=== PATIENT | female | born 1965 | race African-American/Black ===

== ENCOUNTER → 2017-05-01 13:07 | Outpatient (CLI) | payer MEDICARE, MEDICAID, SELFPAY ==
--- NOTE | 2017-05-01 13:10 | HPBI_ITS ---
MAMMOGRAPHY - BILATERAL SCREENING REASON FOR EXAM: Female, 51 years old. Routine annual screening examination. PERTINENT HISTORY: Non-contributory. TECHNIQUE: Digital bilateral breast shara (3D mammographic acquisition) in the CC and MLO projections. 2-D mediolateral oblique (MLO) and craniocaudad (CC) views of both breasts were obtained. CAD: Full Field Digital Mammography with Computer Added Detection was performed. COMPARISON: Comparison is made with prior study dated October 18, 2014 and October 05, 2013. FINDINGS: Breast Composition: There are scattered areas of fibroglandular density. There are no dominant masses or suspicious calcifications. Stable benign-appearing bilateral axillary lymph nodes No other significant abnormalities are identified. There has been no significant change since the prior study. HPBI/SCREENING MAMM (CAD), BILAT IMPRESSION: Stable bilateral screening mammogram. Yearly follow-up mammogram recommended. (A) ASSESSMENT CATEGORY: BIRADS Category 2: Benign. A letter regarding these results will be sent to the patient by the facility within 30 days. Approximately 10% of breast cancers are not detected by mammography. A normal mammogram should not delay biopsy of a clinically suspicious abnormality. [id number] Electronically Signed: Tom Lehman MD at 14:56 EST Tel [phone], Service support ,
== END ==
PROVIDERS: Family Provider Family Medicine; PCP Family Medicine; Visit Provider Family Medicine
DX: Z12.31 Encounter for screening mammogram for malignant neoplasm of breast (principal)
CPT/HCPCS: 77063; 77067

== ENCOUNTER → 2017-05-06 11:00 | Outpatient (CLI) | payer MEDICARE, MEDICAID, SELFPAY ==
[2017-05-11 13:56] LABS: HPV Reflexed? NOT INDICATED
== END ==
PROVIDERS: Family Provider Family Medicine; PCP Family Medicine; Visit Provider Family Medicine
DX: Z12.4 Encounter for screening for malignant neoplasm of cervix (principal); Z01.419 Encounter for gynecological examination (general) (routine) without abnormal findings
CPT/HCPCS: 88175; G0145

== ENCOUNTER → 2018-12-21 11:05 | Outpatient (CLI) | payer MEDICARE, SELFPAY ==
[2018-12-21 15:21] LABS: Absolute Lymphocyte Count 2.82 X10^3/uL (0.83-4.51); Absolute Neutrophil Count 2.7 X10^3/uL (2.0-7.7); Basophil# 0.03 X10^3/uL; Basophil% 0.5 % (0-1); Eosinophil# 0.09 X10^3/uL; Eosinophils% 1.5 % (0-5); Hemoglobin 12.4 g/dL (12.0-15.0); Lymphocyte # 2.82 X10^3/ul (4.0); Lymphocyte % 47.1 % (19-41); Mean Corp Hgb Conc 31.8 g/dL (32-36); Mean Corpuscular Volume 94.2 fL (81-99); Mean Platelet Vol. 9.6 fl (6.2-12.0); Monocyte# 0.34 X10^3/uL; Monocyte% 5.7 % (0-10); NRBC Flagged by Analyzer 0 % (0-5); Platelet Count 228 K/mm3 (150-450); RBC Distribution Width CV 14.9 % (11.6-14.6); RBC Distribution Width SD 51.7 fl (35.1-43.9); Red Blood Count 4.14 M/mm3 (4.2-5.4)
[2018-12-21 15:47] LABS: ALB/GLOB Ratio 1.1 RATIO (0.9-2.4); AST(SGOT) 21 U/L (15-37); Alanine Aminotransfer ALT/SGPT 35 U/L (13-56); Albumin, Serum 3.7 g/dL (3.2-5.0); Alkaline Phosphatase 79 U/L (45-117); Anion Gap 7 (5-15); BUN 12 mg/dL (7-18); BUN/Creat Ratio 14.2 RATIO (10-20); Calcium,Total 9.1 mg/dL (8.5-10.1); Chloride 109 mmol/L (98-107); Cholesterol 256 mg/dL (200); Creatinine, Serum 0.85 mg/dL (0.55-1.02); EST Glomerular Filtration Rate 74 mL/min (>60); Est Glom Filt Rate - Afr Amer 90 mL/min (>60); Globulin 3.3 g/dL (2.2-4.2); Glucose 98 mg/dL (74-106); High Density Lipoprotein 65 mg/dL; Potassium 3.9 mmol/L (3.5-5.1); Sodium Level 144 mmol/L (136-145); Triglycerides 110 mg/dL; Very Low Density Lipoprotein 22 mg/dL (5-40)
== END ==
PROVIDERS: Family Provider Family Medicine; PCP Family Medicine; Visit Provider Family Medicine
DX: Z00.00 Encounter for general adult medical examination without abnormal findings (principal)
CPT/HCPCS: 36415; 80053; 80061; 85025

== ENCOUNTER → 2020-02-01 07:47 | Outpatient (CLI) | payer MEDICARE, MEDICAID, SELFPAY ==
[2020-01-23 13:48] VITALS: BMI 35.2
--- NOTE | 2020-02-01 07:50 | BI_ITS ---
MAMMOGRAPHY - BILATERAL SCREENING REASON FOR EXAM: Female, 54 years old. Routine annual screening examination. PERTINENT HISTORY: Non-contributory. History of prior right breast abscess drainage. TECHNIQUE: Digital bilateral breast isabella (3D mammographic acquisition) in the CC and MLO projections. 2-D mediolateral oblique (MLO) and craniocaudad (CC) views of both breasts were obtained. CAD: Full Field Digital Mammography with Computer Added Detection was performed. COMPARISON: Comparison is made with prior study dated 05/01/2017 and 10/18/2014. FINDINGS: Breast Composition: There are scattered areas of fibroglandular density. There are no dominant masses or suspicious calcifications. Stable benign appearing bilateral axillary lymph nodes. No other significant abnormalities are identified. There has been no significant change since the prior study. BI/SCREEN MAMM (CAD) W/ISABELLA BILAT IMPRESSION: Stable bilateral screening mammogram. Yearly follow-up mammogram recommended. (A) ASSESSMENT CATEGORY: BIRADS Category 2: Benign. A letter regarding these results will be sent to the patient by the facility within 30 days. Approximately 10% of breast cancers are not detected by mammography. A normal mammogram should not delay biopsy of a clinically suspicious abnormality. [id number] Electronically Signed: Tom Lehman, at 9:39 EST , Service support ,
== END ==
PROVIDERS: PCP Family Medicine; Referring Provider Family Medicine; Visit Provider Family Medicine
DX: Z12.31 Encounter for screening mammogram for malignant neoplasm of breast (principal)
CPT/HCPCS: 77063; 77067

== ENCOUNTER → 2020-02-17 14:53 | Outpatient (CLI) | payer MEDICARE, MEDICAID, SELFPAY ==
[2020-01-23 13:48] VITALS: BMI 35.2
--- NOTE | 2020-02-17 14:55 | CT_ITS ---
STUDY: CT SCAN LOWER EXTREMITY RIGHT REASON FOR EXAM: Female, 54 years old. RT KNEE, KESHAWN PROTOCOL RADIATION DOSAGE (If Supplied By Facility): CTDIvol = ( 18.76 ) mGy, DLP = ( 1529.34 ) mGycm. Individualized dose optimization techniques were used for this CT.? TECHNIQUE: Multiple axial tomographic images of the right knee joint, hip joint and ankle joints were obtained. Sagittal and coronal reconstruction was obtained as well. COMPARISON: None. FINDINGS: Mild degree of the joint space narrowing involving the hip joint. There is evidence of an acetabular spur. Subchondral cysts are seen in the subchondral region of the right acetabulum. There is also evidence of degenerative spur formation along the lateral aspect of the femoral head. Marked degree of joint space narrowing with spur formation involving the medial femoral condyle as well as the medial tibial plateau. Degenerative spurring is also seen at the level of the patellofemoral joint. Degenerative spurring is also seen along the lateral femoral condyle and lateral tibial plateau. Imaging of the ankle joint was obtained as well. No significant abnormality is seen. CT/Extremity Lower without Contra IMPRESSION: Degenerative changes involving the medial compartment of the knee joint as well as the patellofemoral joint as described. Mild degree of degenerative changes also involving the right hip joint. Electronically Signed: Tom Lehman, at 15:29 EST , Service support ,
== END ==
PROVIDERS: PCP Family Medicine; Referring Provider Orthopaedic Surgery; Visit Provider Orthopaedic Surgery
DX: M17.11 Unilateral primary osteoarthritis, right knee (principal)
CPT/HCPCS: 73700

== ENCOUNTER 2020-02-21 05:41 | Day surgery (SDC) | payer MEDICARE, MEDICAID, SELFPAY ==
[2020-01-23 13:48] VITALS: BMI 35.2
--- NOTE | 2020-02-10 15:39 | EKG12_ITS ---
Test Reason : Blood Pressure : / mmHG Vent. Rate : 074 BPM Atrial Rate : 074 BPM P-R Int : 142 ms QRS Dur : 070 ms QT Int : 370 ms P-R-T Axes : 072 029 028 degrees QTc Int : 410 ms Normal sinus rhythm with sinus arrhythmia Normal ECG Confirmed by LEIGHTON WAYNE, JUAN CARLOS ([id number]), map editor JUVENTINO MENENDEZ ([id number]) on 02/14/2020 9:26:18 AM Referred By: JUAN Confirmed By:JUAN CARLOS MANZANARES MD
[2020-02-10 16:35] LABS: Absolute Lymphocyte Count 3.63 X10^3/uL (0.83-4.51); Absolute Neutrophil Count 2.8 X10^3/uL (2.0-7.7); Basophil# 0.03 X10^3/uL; Basophil% 0.4 % (0-1); Eosinophil# 0.16 X10^3/uL; Eosinophils% 2.3 % (0-5); Hematocrit 39.2 % (37-47); Lymphocyte # 3.63 X10^3/ul (4.0); Lymphocyte % 51.1 % (19-41); Mean Corp Hgb Conc 33.2 g/dL (32-36); Mean Corpuscular Hgb 30.7 pg (27.0-32.0); Mean Corpuscular Volume 92.5 fL (81-99); Mean Platelet Vol. 9.7 fl (6.2-12.0); Monocyte# 0.45 X10^3/uL; Monocyte% 6.3 % (0-10); NRBC Flagged by Analyzer 0 % (0-5); Neutrophil # 2.82 X10^3/uL (2.7-7.7); Neutrophil % 39.6 % (47-70); Platelet Count 281 K/mm3 (150-450); RBC Distribution Width CV 14.4 % (11.6-14.6); RBC Distribution Width SD 48.7 fl (35.1-43.9); Red Blood Count 4.24 M/mm3 (4.2-5.4); White Blood Count 7.1 K/mm3 (4.4-11.0)
[2020-02-10 16:49] LABS: Prothrombin Time (Protime)PT. 12.2 SECONDS (11.7-14.9)
[2020-02-10 16:56] LABS: Anion Gap 2 (5-15); BUN 9 mg/dL (7-18); BUN/Creat Ratio 10.1 RATIO (10-20); Calcium,Total 9.6 mg/dL (8.5-10.1); Chloride 108 mmol/L (98-107); Creatinine, Serum 0.89 mg/dL (0.55-1.02); EST Glomerular Filtration Rate 70 mL/min (>60); Est Glom Filt Rate - Afr Amer 85 mL/min (>60); Glucose 100 mg/dL (74-106); Sodium Level 140 mmol/L (136-145)
[2020-02-21] VITALS (10 sets, daily range): BP systolic 101–154; BP diastolic 50–91; PULSE 74–107; RESP 14–17; TEMP 36.3–37.1; O2SAT 98–100; BMI 34.4
--- NOTE | 2020-02-21 06:00 | HP_ITS ---
Intake Intake Visit Reasons: right knee Allergies latex Allergy (Verified 02/06/20 15:23) Itching Sulfa (Sulfonamide Antibiotics) Allergy (Verified 02/06/20 15:23) Itching [facility] Medical History (Updated 02/10/20 @ 11:01 by Kareen Wilkinson) hysterectomy (Acute) Surgical History (Updated 03/02/17 @ 10:[address] Laurie Laguerre MD) Total knee replacement status (Acute) Social History (Updated 02/10/20 @ 13:30 by Chace NICKERSON, PA) household members: children current occupational status: unemployed Smoking Status: Current some day smoker alcohol intake: current alcohol intake frequency: 0-2 drinks per day Alcohol type: wine details: Socially smokes and drinks substance use type: marijuana caffeine: Yes Type: coffee what type of physical activity do you participate in: walking, weight training frequency: 1-2 times per week duration: 15-30 minutes/day HPI right knee: Details: Parts of this documentation were recorded by a scribe, this documentation accurately reflects the service provided and the decisions made by me, KRISHAN Roche 02/10/20 1050. CHANDAN FARIA is a 54 year old F here today for right knee IOVERA treatment. Patient continues to have generalized right knee pain. She plans to undergo right TKA on 02/21/2020. Denies numbness, tingling or other associated symptoms. Patient already has her surgical consent signed, received the ensure drinks and the required soap for cleansing. Patient is also here to pepper picker her walker in office. Ortho Exam Right Knee Skin/Wound: Yes CDI, No erythema, No ecchymosis, No swelling Homans Sign: No Knee ROM: Yes ROM-Extension -20 to 0, Yes ROM-Flexion 0-140 (approx 115-120) Examination: Yes Med jt line tenderness, No Lat jt line tenderness, No Pain with flexion, No Pain with extention Patella Translation: 1 Patella Grind: No KNEE: No acute abnormalities on inspection today. No evidence of generalized swelling and no obvious effusion. Patient has no skin changes or other signs of active infection. She is neurovascularly intact throughout the extremity along with soft compartments and no calf tenderness. Left Knee Patella Translation: 1 Assessment & Plan Problems 1. Primary osteoarthritis of right knee M17.11 Plan Preoperative diagnosis : Postoperative diagnosis: Same Procedure: Cryotherapy with Iovera device to anterior femoral cutaneous nerve and 2 branches of the infrapatellar saphenous nerve III nerves in total Description of procedure: Patient was brought back to the procedure room the operative extremity was identified by both patient and physician. The PIP flexion crease was measured to the midpoint of the patella and this distance was divided in 3 resulting in 11 cm location proximal to the midpoint of the patella. This line was extended medial and lateral to the extent of the edges of the patella. This was our treatment line for the anterior femoral cutaneous nerve. A second treatment line was made 5 cm medial to the inferior pole of the patella and 5 cm distally. The leg was prepped with alcohol and Betadine. Lidocaine with epi was used along the treatment lines. Using the Iovera device treatment lines were treated with 1 minute cycles. Reproduction of paresthesias was monitored in the area of nerve distribution. Once all 3 nerves were treated across the 2 treatment lines patient was cleaned and a light dressing with 4 x 4 and Hang wrap was applied. Patient tolerated the procedure without complication. Orders Orders: Iovera Today M25.569 Plan Detail Goals Decrease pain and radiculopathy Barriers Lumbar disc herniation Coding Level of Care Code Attention Renetta Diagnoses Primary osteoarthritis of right knee M17.11 Comment CPT for Iovera treatment of right knee
[2020-02-21] MEDS: Scopolamine 1mg/72hr Patch 1 PATCH TD (06:48)
[2020-02-21] MEDS: Gabapentin 600 MG Tablet PO (06:48)
[2020-02-21] MEDS: Acetaminophen 500 MG Tablet 1000 MG PO ×2 (06:48→13:42)
[2020-02-21] MEDS: Lactated Ringers 1,000 ML 125 ML IV ×3 (06:49→10:59)
[2020-02-21 07:21] LABS: Bedside Glucose 124 mg/dL (70-110)
--- NOTE | 2020-02-21 08:03 | HP.PCM_ITS ---
History and Physical Date of Admission: 02/21/20 Intake Intake Visit Reasons: Right knee Allergies latex Allergy (Verified 01/23/20 13:52) Itching Sulfa (Sulfonamide Antibiotics) Allergy (Verified 01/23/20 13:52) Itching [facility] Medical History (Updated 03/02/17 @ 10:[address] Laurie Laguerre MD) hysterectomy (Acute) Surgical History (Updated 03/02/17 @ 10:[address] Laurie Laguerre MD) Total knee replacement status (Acute) Social History (Updated 02/01/20 @ 14:[address] Mart Hernandez DO) household members: children current occupational status: unemployed alcohol intake: current alcohol intake frequency: 0-2 drinks per day Alcohol type: wine details: Socially smokes and drinks substance use type: marijuana caffeine: Yes Type: coffee what type of physical activity do you participate in: walking, weight training frequency: 1-2 times per week duration: 15-30 minutes/day HPI Right knee: Details: Parts of this documentation were recorded by a scribe, this documentation accurately reflects the service provided and the decisions made by me, Dr. Mart Hernandez DO 02/01/20 8623. CHANDAN FARIA is a 54 year old F here today for right knee. She is here to sign surgery consent for right TKA. She states that she has had pain since 2012. She denies any recent injections. Patient gets pain medications from her PCP, and she has been decreasing the amount of percocet she is taking.She is down to 30 Percocets per month from 190. She states that she only take 1 percocet daily. NATI Patel Reports joint pain, Reports joint swelling, Denies numbness, Denies tingling Skin/Breast Reports system reviewed and no additional complaints, except as docu Neuro Yes system reviewed and no additional complaints, except as docu, No numbness, No tingling Ortho Exam General General: Yes no acute distress Neurologic: Yes alert Psychologic: Yes reasonable and appropriate Right Wrist/Hand Skin/Wound: Yes CDI, No Swelling, No Ecchymosis Right Wrist: No Snuffbox tenderness WRIST: ttp and palpable hypertrophied A1 pully with triggering noted on exam. she is nontender 1st cmc. Left Wrist/Hand Skin/Wound: No Swelling, No Ecchymosis Right Knee Skin/Wound: Yes CDI, No erythema, No ecchymosis, No swelling Knee ROM: Yes ROM-Extension -20 to 0, Yes ROM-Flexion 0-140 (115) Examination: Yes Med jt line tenderness, No Lat jt line tenderness Stability: NML: Anterior Drawer, NML: Fuentes, NML: Posterior Drawer, NML: Varus 0, NML: Varus 30, 1+: Valgus 30 (3mm medial gapping) Patella Translation: 1 Patella Grind: No Left Knee Patella Translation: 1 Supplemental Info 01/23/2020 x-ray right knee advanced knee arthrosis [id number] medial compartment bone spurs throughout Assessment & Plan Problems 1. Primary osteoarthritis of right knee M17.11 Plan Patient educated that she has OA of her right knee. Treatment options are do nothing or PT or steroid injections or gel injections or TKA. Risks, benefits and alternatives of surgery reviewed including but not limited to bleeding, infection, nerve, artery and/or tissue damage, fracture, VTE, mechanical feel of the knee, continued pain, stiffness and expected post-operative course. Patient educated on the IOVERA procedure that can be done prior to surgery and she wishes to proceed with this as long as its covered by insurance. Educated that we will need a CT of the right knee for the robotic assisted TKA. Recommended that she see Dr. Cosby prior to surgery to manage her post operative pain. We will keep her for observation after her surgery. Follow up post op or sooner if pain, swelling, numbness or associated symptoms, or concerns develop. All questions answered. Patient in agreement of plan. Plan Detail Goals Decrease pain and radiculopathy Barriers Lumbar disc herniation Coding Level of Care Code Off vis,est,level 3 Diagnoses Primary osteoarthritis of right knee M17.11 I have re-examined the patient. There are no clinical changes since date of exam Procedure Criteria Procedure Type: Elective COVID Risk Discussion: The surgeon/proceduralist and patient have discussed in detail the risk of exposure to and/or potential harm posed by the COVID-19 virus with having a surgery/procedure at this time versus the risk of delaying the surgery/procedure. It is not possible to know either the risk of delaying the surgery or procedure or chance of getting an infection with perfect accuracy, but a joint decision was made between the patient and the surgeon/proceduralist to proceed at this time with the scheduled surgery/procedure as indicated on the consent form.
[2020-02-21] MEDS: Cefazolin 2 GM in 0.9% Normal Saline 100 ML IV (08:12)
[2020-02-21] MEDS: dexAMETHasone 10 MG/ML Vial IV (08:39)
[2020-02-21] MEDS: Bupivacaine Mpf 0.5% 30 ML VIAL (09:43)
[2020-02-21] MEDS: Epinephrine (1 mg/ml) 1 MG/ML VIAL (09:43)
[2020-02-21] MEDS: Betamethasone/Betamethasone 30 MG/5 ML Vial (09:43)
[2020-02-21] MEDS: 0.9% Normal Saline (Pres. free 10 ML Vial ×2 (09:43)
--- NOTE | 2020-02-21 10:09 | RAD_ITS ---
STUDY: X-RAY - RIGHT KNEE REASON FOR EXAM: Female, 54 years old. Post op TECHNIQUE: 2 view(s) of the knee. COMPARISON: Comparison is made with prior study dated 01/23/2020. FINDINGS: Normal visualized distal femur. Normal visualized proximal tibia and fibula. Normal proximal tibiofibular articulation. The patient is status post total knee replacement. There is good alignment. Postoperative soft tissue changes. RAD/Knee 1 or 2 Views IMPRESSION: Status post total knee replacement. There is good alignment. Postoperative soft tissue changes. Electronically Signed: Tom Lehman, at 11:13 EST , Service support ,
--- NOTE | 2020-02-21 10:14 | DCINST_ITS ---
Discharge Diet: No Restrictions Discharge Activity: Use Walker Weight Bearing Status: Weight bearing as tolerated Keep extremity elevated above heart level: Operative Extremity Call your doctor if you observe: Shortness of breath, Chest pain Additional Instructions: Ice and elevate one week while not ambulating. Ambulation is encouraged. Weightbearing as tolerated. Use assistive devise for stability. Encourage FULL knee extension and flexion 1 time EVERY time you get up and down and MULTIPLE times per day. No showering 72 hours after surgery. Begin showering postop day #3. Remove the dressing prior to shower and gently wash with warm water and antibacterial soap then pat dry and place abdominal pad (or plain gauze) and PETE hose over top. This is to be done daily. Do not submerge for 3 weeks. If not showering daily after the initial 72 hours then you must clean incision and change dressing daily. Do not allow animals near the incision area. Keep clean. Follow anticoagulation recommendations as prescribed. Do not take any NSAIDs while on blood thinner. Do not take any additional narcotic pain medication other than what was prescribed on you surgery day without discussing with physician. Start physical therapy. If you are not currently scheduled for physical therapy or you are unsure of appointment time please call office [facility] to arrange. Call Dr. Hernandez with any concerns. Allergies/Adverse Reactions: Allergies latex Allergy (Verified 02/21/20 06:21) Itching Sulfa (Sulfonamide Antibiotics) Allergy (Verified 02/21/20 06:21) Itching Medications to take at Discharge Oxycodone HCl/Acetaminophen [Percocet 5/325] 1 tablet PO PRN PRN 12/12/15 multivitamin 1 tab PO DAILY 01/23/20 Calcium Carbonate [Elemental Calcium] 1,200 mg PO DAILY 02/06/20 Cholecalciferol (Vitamin D3) [Vitamin D3] 500 mcg PO DAILY 02/06/20 Cider Vinegar [Apple Cider Vinegar] 600 mg PO DAILY 02/06/20 Lorazepam [Ativan] 1 mg PO DAILY PRN PRN 02/06/20 [place]-3 Fatty Acids [Fish Oil] 1,000 mg PO DAILY 02/06/20 Acetaminophen [Tylenol Extra Strength] 1,000 mg PO Q6H PRN #100 tab 02/21/20 Apixaban [Eliquis] 2.5 mg PO BID #30 tab 02/21/20 Cephalexin [Keflex] 1,000 mg PO Q8 #4 cap 02/21/20 Ondansetron HCl [Zofran] 4 mg PO Q6H PRN PRN 5 Days #15 tab 02/21/20 Oxycodone [Oxyir] 5 mg PO Q4H PRN PRN #60 tablet 02/21/20 The following prescriptions were given: Apixaban [Eliquis] 2.5 mg PO BID #30 tab Transmission Status: Pending to [facility] Cephalexin [Keflex] 1,000 mg PO Q8 #4 cap Transmission Status: Pending to [facility] Oxycodone [Oxyir] 5 mg PO Q4H PRN PRN #60 tablet PRN Reason: Pain Score 6-10 Transmission Status: Sent to [facility] Acetaminophen [Tylenol Extra Strength] 1,000 mg PO Q6H PRN #100 tab Transmission Status: Pending to [facility] Ondansetron HCl [Zofran] 4 mg PO Q6H PRN PRN 5 Days #15 tab PRN Reason: Nausea Transmission Status: Pending to [facility] Primary Care Physician: Satinder Stevenson DO [Primary Care Provider] - Test Results: Test results from this visit will be discussed in further detail at your follow- up appointment, if applicable. Please Follow Up With: Mart Hernandez DO - 2weeks
--- NOTE | 2020-02-21 10:15 | OP.PCM_ITS ---
Report of Operation Date of Procedure: 02/21/20 Description of Surgical Findings:: Preoperative diagnosis: Right knee DJD Postoperative diagnosis: Same Procedure: Right total knee arthroplasty CT guided Robotic Assisted Implant: Sharron triathlon press fit femoral component size 3, press-fit tibial baseplate size 3, press fit asymmetric patella size 29, polyethylene X3 size 9 CS Anesthesia: Spinal with adductor canal block Tourniquet time: 13 minutes at 300 mmHg Complications: None Condition: Stable to PACU Estimated blood loss: 200 cc Indication for procedure: This is a 54-year-old female with long standing degenerative joint disease of the knee who has failed conservative treatment and wished to proceed with elective total knee arthroplasty. Risk benefits and alternatives were reviewed including; risk of bleeding, infection, nerve artery and tissue damage, continued pain, postoperative stiffness, venous thromboembolism, need for postoperative rehabilitation, mechanical feel to the knee, and expected postoperative course. The operative CT and templating was performed with component sizing Procedure: The patient was met in the preoperative holding area. The operative extremity was identified by both patient and physician and was marked. Patient was met by anesthesia. An adductor canal block was placed by anesthesia postoperatively the patient was brought back to the operating room on a wheeled cart and transferred to the operating table in the supine position. Anesthesia was started. A well-padded tourniquet was placed on the operative extremity. The patient was prepped and draped in the usual sterile fashion. A timeout was called to ensure the proper patient procedure and extremity were being contemplated. An Esmarch was used to exsanguinate the extremity. The tourniquet was inflated. A 10 blade scalpel was used to make a midline incision down through the skin and subcutaneous tissue. Skin retractors placed. Bovie was used to perform meticulous hemostasis. full-thickness flaps were elevated medial and lateral along the joint capsule. A deep blade scalpel was used to perform a medial parapatellar arthrotomy. The knee was brought to full extension. A Bovie was used to release the soft tissues off the most proximal aspect of the medial tibial plateau, a three-quarter inch curved osteotome was also used for this process. The infrapatellar fat pad was excised. The superior fat pad was excised partially anteriorolateraly and portion the anterioromedial pad was elevated from the femur. At this point our intra- articular femoral array was placed of a 45 degree angle proximal and posterior to the medial epicondyle. Our tibial array was placed greater than 1 hands breath below the incision at a 20 degree angle stab incisions were used for this case were attached and checked with the robotic software. Tourniquet was let down. At this point registration ortiz were taken throughout the knee as well as checkpoints placed in the femur and tibia once the knee was registered then tensioned the medial and lateral ligaments in extension and 90 degrees of flexion. We then used these numbers to adjust our components within parameters to balance the knee in both flexion and extension once this was done on our monitor we then proceeded with using the robotic arm to make our tibial plateau cut and anterior posterior and chamfer cuts and distal on the femur we then trialed and achieved the desired plan with a well-balanced knee. Lug holes were drilled in the femur the tibia preparation was completed with a fin punch and the patella was prepared by first using a caliper to ensure sufficient bone stock and a patellar reamer to remove the desired amount of bone locals were drilled for an asymmetric poly-. We then brought the knee through range of motion with excellent patellar tracking. We thoroughly irrigated the knee with a trial components were removed a posterior capsular injection with her standard cocktail was performed the aqua Mantis was also used to aid in hemostasis. Betadine rinse was allowed to sit and washed out components were press-fit into place. Aricept rinse was then used followed by several more rate liters of irrigation after it was allowed to sit. Joint capsule was closed with #1 Ethibond [id number]'s followed by Vicryl in the subcutaneous tissues staple in the skin arrays and checkpoints were removed prior to closure all counts were correct stab incisions were closed with a stable standard dressing in the form of Mepilex for the main incision Xeroform 4 x 4 and Tegaderm over pin site holes. Thigh-high PETE hose applied over top of dressing. Patient tolerated the procedure well and was directed to PACU in stable condition no intraoperative complications
[2020-02-21] MEDS: Ketorolac 30 MG/ML Syringe 15 MG IV (13:25)
[2020-02-21] MEDS: oxyCODONE 5 MG Tablet PO (13:38)
[2020-02-21] MEDS: Cefazolin 1 GM/50 ML BAG IV (14:00)
== END 2020-02-21 16:48 | disposition home or self-care (01) ==
LOC: SDC 05:42 → AC 05:42
PROVIDERS: Anesthesiology; PCP Family Medicine; Referring Provider Orthopaedic Surgery; Visit Provider Orthopaedic Surgery
PROC: 0SRC0JZ Replacement of Right Knee Joint with Synthetic Substitute, Open Approach (ICD-10-PCS; CPT 27447; principal; 2020-02-21 07:30)
DX: M17.11 Unilateral primary osteoarthritis, right knee (principal); Z20.828 Contact with and (suspected) exposure to other viral communicable diseases; F17.200 Nicotine dependence, unspecified, uncomplicated; F41.9 Anxiety disorder, unspecified; F32.9 Major depressive disorder, single episode, unspecified; Z79.899 Other long term (current) drug therapy
CPT/HCPCS: 01400; 27447; 64447; S2900; 36415; 73560; 80048; 82962; 83735; 85025; 85610; 85730; 86850; 86900; 86901; 87081; 87426; 93005; 97162; C1776; C9803; J7120; J0702; J2405; J3490

== ENCOUNTER 2020-05-22 05:27 | Day surgery (SDC) | payer MEDICARE, MEDICAID, SELFPAY ==
[2020-05-22 06:23] VITALS: BP 142/87; PULSE 84; RESP 18; TEMP 36.1; O2SAT 100; BMI 32.8
[2020-05-22] MEDS: Lactated Ringers 1,000 ML 100 ML IV (06:36)
[2020-05-22] MEDS: Cefazolin 2 GM in 0.9% Normal Saline 100 ML IV (07:08)
--- NOTE | 2020-05-22 07:13 | HP.PCM_ITS ---
History and Physical Date of Admission: 05/22/20 Intake Intake Visit Reasons: RIGHT KNEE Is patient in pain?: Yes Allergies latex Allergy (Verified 05/14/20 13:13) Itching Sulfa (Sulfonamide Antibiotics) Allergy (Verified 05/14/20 13:13) Itching [facility] Medical History (Updated 02/10/20 @ 11:01 by Kareen Wilkinson) hysterectomy (Acute) Surgical History (Updated 03/02/17 @ 10:[address] Laurie Laguerre MD) Total knee replacement status (Acute) Social History (Updated 05/14/20 @ 14:[address] Mart Hernandez, ) household members: children current occupational status: unemployed Smoking Status: Current some day smoker alcohol intake: current alcohol intake frequency: 0-2 drinks per day Alcohol type: wine details: Socially smokes and drinks substance use type: marijuana caffeine: Yes Type: coffee what type of physical activity do you participate in: walking, weight training frequency: 1-2 times per week duration: 15-30 minutes/day HPI RIGHT KNEE: Details: Parts of this documentation were recorded by a scribe, this documentation accurately reflects the service provided and the decisions made by me, Dr. Mart Hernandez, 05/14/20 0755. CHANDAN FARIA is a 54 year old F here today for s/p Right total knee arthroplasty CT guided Robotic Assisted dos 02/21/20. Patient states that she has increased pain when anything touches her incision. She has extreme sensitivity to her anterior knee incision. Patient has difficulty sleeping at night due to the sheets touching her knee. Patient has been doing a home exercise program. Patient has good knee range of motion and she has good strength. Patient has knee instability if she ambulates too quickly. She denies any pain medications. She denies any changes with her incision. SHe also has triggering of the right thumb which is bothersome. SHe has had a previous right trigger injection in 01/2020 which she states took away all of her pain. the pain is directly over the A1 constanza of the thumb ROS Musc Denies numbness, Denies stiffness, Denies tingling Skin/Breast Reports system reviewed and no additional complaints, except as docu Neuro Yes system reviewed and no additional complaints, except as docu, No numbness, No tingling Ortho Exam General General: Yes no acute distress Neurologic: Yes alert, Yes oriented x3 Psychologic: Yes reasonable and appropriate Right Wrist/Hand A1 constanza trigger: No Right Wrist: No TTP CMC Sensation: Radial: I, Ulnar: I, Median: I WRIST: Nontender over CMC joint. Direct tenderness over A1 constanza which is hypertrophied clicking with thumb range of motion. She has hyperextension of the left thumb and 0 degrees of extension of the right thumb she states the right thumb used to hyperextend but no longer does.There is no collateral ligament instability she has intact extensor and flexor tendon pain of MCP joint of the right thumb Right Knee Skin/Wound: Yes healed, No erythema, No swelling Homans Sign: No Knee ROM: Yes ROM-Extension -20 to 0, No ROM-Flexion 0-140 (118) KNEE: collateral ligament intact Supplemental Info 05/14/2020 x-ray right thumb mild arthritic changeCMC IP and MP joints Assessment & Plan Problems 1. Trigger thumb, right thumb M65.311 Plan Obtained X-rays of patient's right knee. Personally reviewed x-rays. There is no obvious fracture, dislocation, or lucency noted. Patient educated that she does not have signs of loosening on xray. If she is still having a lot of pain over the incision and anterior knee then she can trial the BioMed cream which will prescribe her today. She will need prophylactic ATBs for life prior to dental work. Obtained X-rays of patient's right hand. Personally reviewed x-rays. There is no obvious fracture, dislocation, or lucency noted. I suspect her she is continuing to suffer from hypertrophy of the A1 constanza she had complete relief with injection in the past and continues to have mild clicking and tenderness over hypertrophied constanza. Treatment options are right trigger thumb injection or right A1 constanza release of the thumb. She understands the procedure will not restore her hyperextension at the IP joint as she once had. And she may have some continued pain after procedure and she understands the incision can be hypersensitive for a long time she does have history of surgical incisional hypersensitivity on her kneeShe understands the procedure will not restore her hyperextension at the IP joint as she once had. 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 She is also at increased risk for keloid as she has have them in the past as well Reviewed the pre-operative plans with the patient. Risks and benefits of the procedure were fully explained, including but not limited to infection, neurovascular injury, continued pain, arthritis, stiffness, need for further surgery, re-injury, DVT, PE, general risks of anesthesia, and loss of limb or life. The patient understands all the risks and does wish to proceed with written consent for right A1 constanza release of the thumb. Follow up 1 year post op for xrays or sooner if pain, swelling, numbness or associated symptoms, or concerns develop. All questions answered. Patient in agreement of plan. Orders Orders: Knee 4 or More Views Today M25.561 Hand Min 3 Views Today M65.311 Plan Detail Goals Decrease pain and radiculopathy Barriers Lumbar disc herniation Coding Level of Care Code Off vis,est,level 3 Diagnoses Trigger thumb, right thumb M65.311 I have re-examined the patient. There are no clinical changes since date of exam Procedure Criteria Procedure Type: Elective COVID Risk Discussion: The surgeon/proceduralist and patient have discussed in detail the risk of exposure to and/or potential harm posed by the COVID-19 virus with having a surgery/procedure at this time versus the risk of delaying the surgery/procedure. It is not possible to know either the risk of delaying the surgery or procedure or chance of getting an infection with perfect accuracy, but a joint decision was made between the patient and the surgeon/proceduralist to proceed at this time with the scheduled surgery/procedure as indicated on the consent form.
[2020-05-22] MEDS: Mupirocin Ointment 22gm Tube 1 APPLIC (07:31)
[2020-05-22] MEDS: Lidocaine 1% (20 ml mdv) 20 ML Vial (07:34)
--- NOTE | 2020-05-22 07:39 | PCM.DC.ORTHO ---
Discharge Diet: No Restrictions Additional Instructions: Ice and elevate operative extremity next 72 hours. Keep dressing on clean and dry for 48 hours then may remove and allow warm soapy water to rinse over incision but do not submerge until sutures are out. Then apply bandaid over incision and change daily. encourage finger range of motion. Not lift more than 1/2 pound. Allergies/Adverse Reactions: Allergies latex Allergy (Verified 05/17/20 10:46) Itching Sulfa (Sulfonamide Antibiotics) Allergy (Verified 05/17/20 10:46) Itching Medications to take at Discharge multivitamin 1 tab PO DAILY 01/23/20 Cholecalciferol (Vitamin D3) [Vitamin D3] 500 mcg PO DAILY 02/06/20 [place]-3 Fatty Acids [Fish Oil] 1,000 mg PO DAILY 02/06/20 Acetaminophen [Tylenol Extra Strength] 1,000 mg PO Q6H PRN #100 tab 02/21/20 oxycodone-acetaminophen 10 mg-325 mg tablet 1 tab PO Q4H PRN tab 04/02/20 Oxycodone [Oxyir] 5 mg PO Q4H PRN PRN #20 tablet 05/22/20 The following prescriptions were given: Oxycodone [Oxyir] 5 mg PO Q4H PRN PRN #20 tablet PRN Reason: Pain Score 6-10 Transmission Status: Sent to [facility] Primary Care Physician: Satinder Stevenson DO [Primary Care Provider] - Test Results: Test results from this visit will be discussed in further detail at your follow-up appointment, if applicable. Please Follow Up With: Mart Hernandez DO - 2 Weeks
--- NOTE | 2020-05-22 07:41 | OP.PCM_ITS ---
Report of Operation Date of Procedure: 05/22/20 Description of Surgical Findings:: Preoperative diagnosis; right first digit trigger finger Postoperative diagnosis; same Procedure: Right thumb digit A1 constanza release Anesthesia: Local with MAC Tourniquet time; 10 minutes 250 mm Hg Complications: None Indication for procedure; This is a 54-year-old female with symptoms consistent with trigger finger. Risks benefits and alternatives were reviewed including risks of bleeding infection nerve tendon tissue damage need for further surgery and continued pain and symptoms, hypersensitivity to scar/incision and recurrence. Procedure; The patient was met in the preoperative holding area the operative extremity was identified by both patient and physician and was marked the patient was met by anesthesia and brought back to the operating room and transferred to the operating table in the supine position. Aanesthesia was started. A well-padded tourniquet was placed on the operative upper extremity. The patient was prepped and draped in the usual sterile fashion. A timeout was called to ensure the proper patient procedure and extremity were being contemplated. 0.5 percent Marcaine was injected into the incisional area. Esmarch was used tourniquet was inflated. 15 blade scalpel was used to make a l ongitudinal incision directly over the A1 constanza was carried down through the subcutaneous tissue Rossana retractors placed radial and ulnar protecting the digital nerves and a Ragnell retractor was used at the apex of the incision under direct visualization a deep blade scalpel was used to release the A1 constanza. The wound was thoroughly irrigated and closed with 4-0 nylon vertical mattress edges. Dressing was applied in the form of Xeroform 4 x 4 web roll and an Hang wrap. Patient tolerated the procedure well was brought back to the PACU in stable condition.
[2020-05-22 07:50] VITALS: BP 126/95; BP 142/87; PULSE 81; RESP 16; TEMP 36.5; O2SAT 100
[2020-05-22 07:55] VITALS: BP 120/95; BP 142/87; PULSE 89; RESP 16; O2SAT 100
[2020-05-22 08:00] VITALS: BP 124/91; BP 142/87; PULSE 81; RESP 16; O2SAT 98
[2020-05-22 08:05] VITALS: BP 132/91; BP 142/87; PULSE 81; RESP 16; TEMP 36.3; O2SAT 100
[2020-05-22] MEDS: oxyCODONE 5 MG Tablet PO (08:40)
[2020-05-22 09:07] VITALS: BP 142/87; BP 153/82; PULSE 82; RESP 16; TEMP 36.4; O2SAT 100
== END 2020-05-22 09:14 | disposition home or self-care (01) ==
LOC: SDC 05:28 → AC 05:28
PROVIDERS: PCP Family Medicine; Referring Provider Orthopaedic Surgery; Visit Provider Orthopaedic Surgery
PROC: (CPT 26055; principal; 2020-05-22 07:05)
DX: M65.311 Trigger thumb, right thumb (principal); Z20.828 Contact with and (suspected) exposure to other viral communicable diseases; F17.200 Nicotine dependence, unspecified, uncomplicated; F41.9 Anxiety disorder, unspecified; F32.9 Major depressive disorder, single episode, unspecified
CPT/HCPCS: 01810; 26055; 87426; C9803; J7120

== ENCOUNTER → 2020-10-22 10:30 | Outpatient (CLI) | payer MEDICARE, MEDICAID, SELFPAY ==
--- NOTE | 2020-10-22 10:43 | RAD_ITS ---
STUDY: X-RAY - LUMBAR SPINE REASON FOR EXAM: Female, 55 years old. Progressive low back pain. TECHNIQUE: 4 view(s) of the lumbar spine were obtained. COMPARISON: 08/24/2015. FINDINGS: Normal lumbar lordosis. There is no substantial scoliosis. There is a normal alignment of the vertebrae. Normal vertebral bodies and endplates. Diffuse facet sclerosis unchanged. Mild intervertebral disc space narrowing at L2-3, L3-4, L4-5 and L5-S1 with small osteophytes at L2-3 and L3-4. Findings are similar to what was present on the prior study. The soft tissue structures are unremarkable. RAD/L/S Spine Min 4 Views IMPRESSION: Mild diffuse lumbar spondylosis, most marked at L2-3 and L3-4. No acute abnormality. Electronically Signed: León Schwartz MD at 9:18 EDT , Service support ,
[2020-10-22 12:01] LABS: Hemoglobin A1c 5.9 % (3.8-5.6)
[2020-10-22 12:06] LABS: AST(SGOT) 23 U/L (15-37); Alanine Aminotransfer ALT/SGPT 30 U/L (13-56); Alkaline Phosphatase 100 U/L (45-117); Anion Gap 6 (5-15); BUN 25 mg/dL (7-18); BUN/Creat Ratio 29.3 RATIO (10-20); Calcium,Total 9.5 mg/dL (8.5-10.1); Chloride 107 mmol/L (98-107); Cholesterol 270 mg/dL (200); Creatinine, Serum 0.85 mg/dL (0.55-1.02); EST Glomerular Filtration Rate 73 mL/min (>60); Est Glom Filt Rate - Afr Amer 89 mL/min (>60); Globulin 4.1 g/dL (2.2-4.2); Glucose 106 mg/dL (74-106); High Density Lipoprotein 58 mg/dL; Potassium 4.2 mmol/L (3.5-5.1); Protein, Total 8.1 g/dL (6.4-8.2); Sodium Level 141 mmol/L (136-145); Triglycerides 85 mg/dL; Very Low Density Lipoprotein 17 mg/dL (5-40)
== END ==
PROVIDERS: PCP Family Medicine; Visit Provider Family Medicine
DX: Z00.00 Encounter for general adult medical examination without abnormal findings (principal); R73.01 Impaired fasting glucose; M54.5 Low back pain; G89.29 Other chronic pain; E78.5 Hyperlipidemia, unspecified
CPT/HCPCS: 36415; 72110; 80053; 80061; 83036

== ENCOUNTER → 2020-11-26 15:12 | Outpatient (CLI) | payer MEDICARE, MEDICAID, SELFPAY ==
--- NOTE | 2020-11-26 15:18 | RAD_ITS ---
STUDY: X-RAY - LUMBAR SPINE REASON FOR EXAM: Female, 55 years old. BACK PAIN TECHNIQUE: 3 view(s) of the lumbar spine were obtained. COMPARISON: Oct 22 2020 FINDINGS: Normal lumbar lordosis. Stable grade 1 anterolisthesis at L4/L5 There is multilevel endplate spondylosis of the lumbar vertebrae. There is multi-level degenerative disc disease with multi-level disc space narrowing. The soft tissue structures are unremarkable. RAD/Lumbar Spine 2 or 3 Views IMPRESSION: Degenerative changes of the spine. Electronically Signed: Reece Kern MD at 11:21 EDT Tel , Service support ,
== END ==
PROVIDERS: PCP Family Medicine; Referring Provider Anesthesiology Pain Medicine; Visit Provider Anesthesiology Pain Medicine
DX: M54.9 Dorsalgia, unspecified (principal)
CPT/HCPCS: 72100

== ENCOUNTER 2021-02-26 17:30 | Outpatient (RCR) | payer MEDICARE, MEDICAID, SELFPAY ==
--- NOTE | 2021-02-12 17:49 | HP.PTEVAL_ITS ---
Patient's Visit Information CHANDAN FARIA is a 55 year old F referred to Physical Therapy by Dr. Satinder Stevenson DO with a diagnosis of R knee pain. Date of Evaluation: 02/12/21 Physical Therapist: Gaetano Quevedo, DPT, OCS, CSCS - Visit Plan Frequency: 3x /Week Duration: 4-6 Weeks Plan: 3x/week for 4 weeks for. 1. rollout and DTR to R knee quad, patellar mobs and aggressive knee flexion ROM prone and supine. 2. Ensure gym exercises on machines to strengthen entire R LE and progress to I at [facility]. ice as needed - Subjective Had PT in [place] and was not happy with it. R TKA one year on 03/23/21. Went back to therapy because it hurt rotating it on the bike. Had not herapy after surgery except home therapy. Only had a couple outpatient visits. Spring and summer was working and doing OK but having trouble getting in and out of car. painful sometimes if on feet alot up to 7/10 after work. 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 Lifting and pulling and bending can be painful.Squatting hurts. Feels tight. Sleep is OK with pillow in between knees. Basic ADLs are getting done. Exercises on TM and machines at [facility]'s place. Feels better after workign out but not consistent. - Pain R knee pain Pain Intensity (Out of 10): 0 Pain Intensity Range: 0, 8 - Objective Walks with a stiff R knee but i and trasnfers with some R knee pain from chair but I. Steps are stiff on R knee but able reciprocally with one rail. Hip and ankle AROM WFL. R knee AROM 0-97, PROM to 100 stiff. Tender to palpation above patella R knee. SLR R with 0 ext lag. L knee 0-127 AROM. reflexes 1/3 patella and achilles. Sensation shows some numbness lateral R knee. {Patella stiff on Fortunato compared to L proximal distally. Strength R knee ext 4 and L 4+, HSC R 4 and L 4+. Hip strength flexion 4 B, abd and ext 4- B. ankle strength 4+ B in all motions. - Balance/Special Test Scores Functional Gait Assessment Score: 28 % Disability: 6.6700 Lower Extremity Functional Score: 55 - Goals Goal 1:: 0-112 AROM R knee to limit pain with steps and squatting Goal Time Frame: 4-6 Weeks Goal 2:: Ptient feel 99% better in overall knee pain at 1/10 at worst Goal Time Frame: 4-6 Weeks Goal 3:: Work without increased pain Goal Time Frame: 4-6 Weeks Goal 4:: LEFS score 65/80 Goal Time Frame: 4-6 Weeks - Rehabilitation Potential Physical Therapy Diagnosis: R knee stiffness and limited ROM casuing funcitonal pain Rehabilitation Potential: Questionable - Anticipated Interventions Patient/Client Instruction: Educate patient on: Condition, Plan of Care For the Purpose of:: To decrease pain, To increase ROM, To improve muscle performance and motor function, To increase tolerance to activity/condition/position, To improve ability of physical actions for home/community/work/leisure Therapeutic Exercise to Include: Strength training, Postural training, F lexibilty training, Passive ROM, Active ROM For the Purpose of:: To decrease pain, To increase ROM, To improve muscle performance and motor function, To increase tolerance to activity/condition/position, To improve ability of physical actions for home/community/work/leisure Manual Therapy Techniques to Include: Scar massage, Mobilization, Passive ROM, Soft tissue mobilization For the Purpose of:: To decrease pain, To increase ROM Cryotherapy (ice pack, ice massage): Yes For the Purpose of:: To decrease swelling/inflammation Thank you for the opportunity to evaluate your patient. For Medicare and Medicare HMO plans, please review the plan of care and approve it. It will need to be FAXED BACK to us at [phone] for Medicare purposes. For Medicare only, by signing this I certify the plan of care. Please let me know if there are questions or concerns regarding this plan of care. Physician Signature: Date:
--- NOTE | 2021-03-04 13:09 | HP.PTDCSUM ---
It has been my pleasure to treat CHANDAN FRAIA referred by Dr. Satinder Stevenson DO, with the diagnosis of R knee pain for a total of 3 visit(s). Discharge Date: Please see the following information for a summary of their discharge status. Subjective: Feeling good but needs gym rpoutine to continue. R knee pain Pain Intensity (Out of 10): 1 Objective/Function: continues to demonstrate improvement in range of motion with stretching and manual work. 114 deg flexion this date. Goal 1:: 0-112 AROM R knee to limit pain with steps and squatting Goal Progress: Goal Met Goal 2:: Ptient feel 99% better in overall knee pain at 1/10 at worst Goal 3:: Work without increased pain Goal Progress: 2 hours at gym. Goal 4:: LEFS score 65/80 Plan: Patient cancelled all appointments not wihing to return without reason. Will discontinue her chart at this time. If there are questions or concerns regarding this patient's physical therapy, please feel free to call me at [phone]. Thank you for the referral of this patient. Sincerely, Gaetano Quevedo, DPT, OCS, CSCS Balance/Gait/Functional tests - Balance/Special Test Scores Functional Gait Assessment Score: 28 % Disability: 6.6700 Lower Extremity Functional Score: 55
== END 2021-02-26 19:00 | disposition home or self-care (01) ==
LOC: PT 17:30
PROVIDERS: PCP Family Medicine; Referring Provider Family Medicine; Visit Provider Family Medicine
DX: M25.561 Pain in right knee (principal)
CPT/HCPCS: 97110; 97161

== ENCOUNTER → 2021-11-22 | Outpatient (CLI) | payer MEDICARE, MEDICAID, SELFPAY ==
[2021-11-22 12:13] LABS: Hemoglobin A1c 6.1 % (3.8-5.6)
[2021-11-22 12:24] LABS: AST(SGOT) 19 U/L (15-37); Alanine Aminotransfer ALT/SGPT 30 U/L (13-56); Albumin, Serum 3.6 g/dL (3.2-5.0); Alkaline Phosphatase 81 U/L (45-117); Bilirubin, Direct 0.14 mg/dL (0.00-0.30); Cholesterol 228 mg/dL (200); Globulin 3.8 g/dL (2.2-4.2); High Density Lipoprotein 56 mg/dL; Protein, Total 7.4 g/dL (6.4-8.2); Triglycerides 123 mg/dL; Very Low Density Lipoprotein 25 mg/dL (5-40)
== END | disposition home or self-care (01) ==
PROVIDERS: PCP Family Medicine; Referring Provider Family Medicine; Visit Provider Family Medicine
DX: E78.5 Hyperlipidemia, unspecified (principal); R73.03 Prediabetes; Z51.81 Encounter for therapeutic drug level monitoring
CPT/HCPCS: 36415; 80061; 80076; 83036

== ENCOUNTER → 2021-11-29 | Outpatient (CLI) | payer MEDICARE, MEDICAID, SELFPAY ==
--- NOTE | 2021-11-29 09:58 | BI_ITS ---
MAMMOGRAPHY - BILATERAL SCREENING REASON FOR EXAM: Female, 56 years old. Routine annual screening examination. PERTINENT HISTORY: Non-contributory. TECHNIQUE: Digital bilateral breast isabella (3D mammographic acquisition) in the CC and MLO projections. 2-D mediolateral oblique (MLO) and craniocaudad (CC) views of both breasts were obtained. CAD: Full Field Digital Mammography with Computer Added Detection was performed. COMPARISON: Comparison is made with prior study dated 02/01/2020 and 05/01/2017. FINDINGS: Breast Composition: There are scattered areas of fibroglandular density. There are no dominant masses or suspicious calcifications. Stable small benign-appearing bilateral axillary lymph nodes. No other significant abnormalities are identified. There has been no significant change since the prior study. BI/SCRN MAMM (CAD)W/ISAEBLLA BILAT IMPRESSION: Stable bilateral screening mammogram. Yearly follow-up mammogram recommended. (A) ASSESSMENT CATEGORY: BIRADS Category 2: Benign. A letter regarding these results will be sent to the patient by the facility within 30 days. Approximately 10% of breast cancers are not detected by mammography. A normal mammogram should not delay biopsy of a clinically suspicious abnormality. [id number] Electronically Signed: Tom Lehman MD at 11:13 EDT ,
== END | disposition home or self-care (01) ==
LOC: OPBI 09:57
PROVIDERS: PCP Family Medicine; Referring Provider Family Medicine; Visit Provider Family Medicine
DX: Z12.31 Encounter for screening mammogram for malignant neoplasm of breast (principal)
CPT/HCPCS: 77063; 77067

== ENCOUNTER → 2022-01-20 | Outpatient (CLI) | payer MEDICARE, MEDICAID, SELFPAY ==
--- NOTE | 2022-01-20 15:20 | RAD_ITS ---
STUDY: X-RAY - PELVIS AND RIGHT HIP REASON FOR EXAM: Female, 56 years old. R HIP PAIN TECHNIQUE: 3 views of the pelvis and hip. COMPARISON: 06/10/2021 FINDINGS: There is a non-specific bowel gas pattern. Normal visualized soft tissue structures. There are multiple calcified phleboliths. Normal bilateral iliac wings, sacroiliac joints and visualized sacrum. Normal bilateral superior and inferior pubic rami. Normal pubic symphysis. Normal bilateral ischial tuberosities. There are osteoarthritic changes of the femoral head with marginal osteophyte formation. There is osteoarthritic spur formation of the acetabular rim. There is mild articular joint space narrowing of the hip. RAD/HIP, UNI W/ Pelvis 2-3 Views IMPRESSION: Unchanged appearance of mild right hip arthrosis. Electronically Signed: Reagan Arthur MD at 0:46 EST ,
== END | disposition home or self-care (01) ==
LOC: RAD 15:15
PROVIDERS: PCP Family Medicine; Referring Provider Anesthesiology Pain Medicine; Visit Provider Anesthesiology Pain Medicine
DX: M25.551 Pain in right hip (principal)
CPT/HCPCS: 73502

== ENCOUNTER 2022-02-26 08:00 | Outpatient (RCR) | payer MEDICARE, MEDICAID, SELFPAY ==
--- NOTE | 2022-02-21 09:02 | HP.PTEVAL ---
Patient's Visit Information CHANDAN FARIA is a 56 year old F referred to Physical Therapy by Dr. Shiv Cosby MD with a diagnosis of BACK PAIN AND HIP PAIN. Date of Evaluation: 02/21/22 Physical Therapist: Garfield Amanda, PT, Cert MDT, OCS - Visit Plan Frequency: 2x /Week Duration: 4 Weeks Plan: PT INTERVETIONS DLS ,POSTURAL EX'S , LE FLEXABLITY ,HIP STRENGTHNEING AND MODALTIES PRN - Subjective This 56 y/o female presents to physical therapy with back pain. Patient has has lumbar pain~ 10 years and gradually worse in right groin. Patient seen pain management Dr. Parrish had epidural injection did not help. MD recommended PT . MEDS Percocet . Patient takes Ativan anxiety . Aggravating factors lifting ,bending ,walking and standing. Alleviating factors rest . Coughing/sneezing-. Bowel/bladder -. Patient seen chiropractor last year. Denies paresthesia/tingling . Patient pain affects QOL and function. Patient had x-rays showed DDD. SOCIAL: . VOCATION: [employer] activities - Pain Right Back Pain Intensity (Out of 10): 7 Pain Intensity Range: 10 - Objective POSTURE: mild forward posture. GAIT: reciprocal pattern. NEURO: denies paresthesia/tingling ,reflexes L3-4,L4-5 ,L5-S1 1/3. SYMTTRIES: align. PALAPTION: unremarkable. MMT: quads/hams 4/5 ,hip flexion 4/5 ,ankle 5/5. FLEXABLITY: hamstrings min tight. HIP IR: 25 degrees. LUMBAR ROM: flexion mod loss ,extension min loss ,side glides min loss - Special Tests L/S Slump test left side: Negative L/S Slump test right side: Negative L/S Left Straight Leg Raise: Negative L/S Right Straight Leg Raise: Negative - Balance/Special Test Scores Oswestry Low Back Score: 25 - Goals Goal 1:: I with HEP back Goal Time Frame: 4-6 Weeks Goal 2:: Patient to improve back oswestry score by 5 points to improve QOL Goal Time Frame: 4-6 Weeks Goal 3:: Patient improve lumbar ROM for function of recovery to work with patient at job Goal Time Frame: 4-6 Weeks Goal 4:: Patient increase strength hip to 4/5 to improve function Goal Time Frame: 4-6 Weeks Goal 5:: Patient to demonstrate 50 improvement with improved function with less pain Goal Time Frame: 4-6 Weeks - Rehabilitation Potential Physical Therapy Diagnosis: This patient has right low back pain with pain with positioning and movement thus benefit from skilled PT Rehabilitation Potential: Good - Anticipated Interventions Patient/Client Instruction: Educate patient on: Condition, Plan of Care For the Purpose of:: To decrease pain, To increase ROM, To improve muscle performance and motor function, To improve ability to perform ADL's, To increase tolerance to activity/condition/position, To improve ability of physical actions for home/community/work/leisure, To improve health of tissue, To decrease soft tissue restriction, To increase flexibility/ROM, To prevent re-injury Therapeutic Exercise to Include: Strength training, Body mechanics, Postural training, Flexibilty training, Dynamic Lumbar Stabilization For the Purpose of:: To decrease pain, To increase ROM, To improve muscle performance and motor function, To increase tolerance to activity/condition/position, To improve performance and independence with ADL's, To improve ability of physical actions for home/community/work/leisure, To improve health of tissue, To decrease soft tissue restriction, To increase flexibility/ROM, To prevent re-injury TENS: Yes IF ES: Yes Cryotherapy (ice pack, ice massage): Yes Thermo therapy (hot pack): Yes Ultrasound (thermal/non thermal): Yes For the Purpose of:: To decrease pain, To increase ROM, To improve nutrient delivery to tissue, To increase oxygenation perfusion, To improve health of tissue, To decrease soft tissue restriction Thank you for the opportunity to evaluate your patient. For Medicare and Medicare HMO plans, please review the plan of care and approve it. It will need to be FAXED BACK to us at [phone] for Medicare purposes. For Medicare only, by signing this I certify the plan of care. Please let me know if there are questions or concerns regarding this plan of care. Physician Signature: Date:
--- NOTE | 2022-08-19 10:06 | HP.PTDCNRP_ITS ---
CHANDAN GARG FARIA was seen in my office for initial evaluation on 02/21/22. The following Plan of Care was established for this patient: Initial Frequency: 2x /Week Initial Duration: 4 Weeks Patient/Client Instruction: Educate patient on: Condition, Plan of Care For the Purpose of:: To decrease pain, To increase ROM, To improve muscle performance and motor function, To improve ability to perform ADL's, To increase tolerance to activity/condition/position, To improve ability of physical actions for home/community/work/leisure, To improve health of tissue, To decrease soft tissue restriction, To increase flexibility/ROM, To prevent re-injury Therapeutic Exercise to Include: Strength training, Body mechanics, Postural training, Flexibilty training, Dynamic Lumbar Stabilization For the Purpose of:: To decrease pain, To increase ROM, To improve muscle performance and motor function, To increase tolerance to activity/condition/position, To improve performance and independence with ADL's, To improve ability of physical actions for home/community/work/leisure, To improve health of tissue, To decrease soft tissue restriction, To increase flexibility/ROM, To prevent re-injury TENS: Yes IF ES: Yes Cryotherapy (ice pack, ice massage): Yes Thermo therapy (hot pack): Yes Ultrasound (thermal/non thermal): Yes For the Purpose of:: To decrease pain, To increase ROM, To improve nutrient delivery to tissue, To increase oxygenation perfusion, To improve health of ti ssue, To decrease soft tissue restriction This patient was last seen in our office . Pertinent comments regarding their Physical therapy will appear below: Patient seen for PT for back and hip pain. Patient had MRI showed HNP and stenosis. At this point I will be discontinuing this patient from physical therapy. I would be happy to see this patient again in the future if found appropriate by the physician. Thank you! Garfield Amanda, PT, Cert MDT, OCS Balance/Gait/Functional tests - Balance/Special Test Scores Oswestry Low Back Score: 25
== END 2022-02-26 19:00 | disposition home or self-care (01) ==
LOC: PT 08:00
PROVIDERS: PCP Family Medicine; Referring Provider Anesthesiology Pain Medicine; Visit Provider Anesthesiology Pain Medicine
DX: M54.9 Dorsalgia, unspecified (principal); M25.559 Pain in unspecified hip
CPT/HCPCS: 97110; 97162

== ENCOUNTER → 2022-06-05 | Outpatient (CLI) | payer MEDICARE, MEDICAID, SELFPAY ==
[2022-06-05 12:35] LABS: Absolute Lymphocyte Count 2.83 X10^3/uL (0.83-4.51); Basophil# 0.04 X10^3/uL; Basophil% 0.7 % (0-1); Eosinophil# 0.24 X10^3/uL; Eosinophils% 4.4 % (0-5); Hematocrit 41.4 % (37-47); Hemoglobin 13.3 g/dL (12.0-15.0); Lymphocyte # 2.83 X10^3/ul (0.83-4.51); Lymphocyte % 52.4 % (19-41); Mean Corp Hgb Conc 32.1 g/dL (32-36); Mean Corpuscular Hgb 29.8 pg (27.0-32.0); Mean Corpuscular Volume 92.6 fL (81-99); Mean Platelet Vol. 9.6 fl (6.2-12.0); Monocyte# 0.32 X10^3/uL; Monocyte% 5.9 % (0-10); NRBC Flagged by Analyzer 0 % (0-5); Neutrophil # 1.95 X10^3/uL (2.7-7.7); Neutrophil % 36.2 % (47-70); Platelet Count 310 K/mm3 (150-450); RBC Distribution Width CV 14.1 % (11.6-14.6); RBC Distribution Width SD 47.8 fl (35.1-43.9); Red Blood Count 4.47 M/mm3 (4.2-5.4); White Blood Count 5.4 K/mm3 (4.4-11.0)
[2022-06-05 13:07] LABS: ALB/GLOB Ratio 1.1 RATIO (0.9-2.4); AST(SGOT) 24 U/L (15-37); Alanine Aminotransfer ALT/SGPT 31 U/L (13-56); Albumin, Serum 3.9 g/dL (3.2-5.0); Alkaline Phosphatase 75 U/L (45-117); Anion Gap 5 (5-15); BUN 10 mg/dL (7-18); BUN/Creat Ratio 10.3 RATIO (10-20); Calcium,Total 9.3 mg/dL (8.5-10.1); Chloride 109 mmol/L (98-107); Cholesterol 240 mg/dL (200); Creatinine, Serum 0.97 mg/dL (0.55-1.02); EST Glomerular Filtration Rate 63 mL/min (>60); Est Glom Filt Rate - Afr Amer 76 mL/min (>60); Globulin 3.6 g/dL (2.2-4.2); Glucose 119 mg/dL (74-106); Hemoglobin A1c 5.9 % (3.8-5.6); High Density Lipoprotein 56 mg/dL; Potassium 3.9 mmol/L (3.5-5.1); Protein, Total 7.5 g/dL (6.4-8.2); Sodium Level 142 mmol/L (136-145); Triglycerides 138 mg/dL; Very Low Density Lipoprotein 28 mg/dL (5-40)
[2022-06-11 14:09] LABS: Age Gdln ACOG Testing 30-65 (.)
[2022-06-11 16:08] LABS: HPV APTIMA, High Risk Negative (Negative)
[2022-06-17 12:18] LABS: HPV Reflexed? YES, CHARGE PATIENT
== END | disposition home or self-care (01) ==
LOC: BFHLAB 09:58
PROVIDERS: PCP Family Medicine; Referring Provider Family Medicine; Visit Provider Family Medicine
DX: Z00.00 Encounter for general adult medical examination without abnormal findings (principal); E78.5 Hyperlipidemia, unspecified; E66.9 Obesity, unspecified; R73.01 Impaired fasting glucose; Z12.4 Encounter for screening for malignant neoplasm of cervix
CPT/HCPCS: 36415; 80053; 80061; 83036; 85025; 87624; 88175; G0145

== ENCOUNTER → 2022-07-10 | Outpatient (CLI) | payer MEDICARE, MEDICAID, SELFPAY ==
--- NOTE | 2022-07-10 10:34 | MRI_ITS ---
INDICATION: RADICULOPATHY EXAMINATION: MRI - MR Spine Lumbar W/O Contrast TECHNIQUE: Multiplanar and multisequence MR images of the lumbar spine. IV Contrast Dosage and Agent: None. COMPARISON: None. FINDINGS: VERTEBRAE: Vertebral body heights are preserved. Normal vertebral bodies and posterior elements. VERTEBRAL ALIGNMENT: Grade 1 spondylolisthesis L4-5 without spondylolysis. CORD: Normal position and signal intensity of the conus medullaris. L1/L2: Mild disc desiccation. L2/L3: Moderate disc desiccation, mild bilateral facet arthropathy, moderate right intraforaminal disc herniation 0.56 cm in AP dimension. There is a mild bilateral facet arthropathy with moderate right and mild left neural foraminal encroachment. L3/L4: Mild disc desiccation, mild bilateral facet arthropathy, small left intraforaminal disc herniation measuring 0.3 cm AP, moderate left-sided neural foraminal encroachment. L4/L5: Moderate disc desiccation, mild pseudobulge, moderate bilateral facet arthropathy and ligamentous hypertrophy, moderate left intraforaminal disc herniation measuring 0.78 cm AP by 1.09 cm craniocaudal. Severe left and moderate right neural foraminal encroachment. L5/S1: Mild disc desiccation and disc bulging, moderate right and mild left facet arthropathy, moderate bilateral neural foraminal encroachment. SOFT TISSUES: Unremarkable. MRI/Spine Lumbar (Routine) IMPRESSION: Moderate right intraforaminal disc herniation L2-3. L3-4 small left intraforaminal disc herniation. L4-5 moderate left intraforaminal disc herniation. Grade 1 spondylolisthesis L4-5 with mild central bulge. Mild disc bulging L5-S1. Multilevel degenerative disc disease, central stenosis, facet arthropathy and neural foraminal encroachment as above. Electronically Signed: Satinder Adam MD, REMY at 19:09 EDT ,
== END | disposition home or self-care (01) ==
LOC: MRI 10:08
PROVIDERS: PCP Family Medicine; Referring Provider Anesthesiology Pain Medicine; Visit Provider Anesthesiology Pain Medicine
DX: M54.16 Radiculopathy, lumbar region (principal)
CPT/HCPCS: 72148

== ENCOUNTER → 2023-03-28 | Outpatient (CLI) | payer MEDICARE, MEDICAID, SELFPAY ==
--- NOTE | 2023-03-28 09:52 | CT_ITS ---
EXAM: CT BILATERAL LOWER EXTREMITIES WITHOUT INTRAVENOUS CONTRAST CLINICAL INDICATION: templating right SALTY TECHNIQUE: Helically acquired images were obtained of the bilateral lower extremities without intravenous contrast. 2-D reformats were performed by the technologist. This CT exam was performed using one or more of the following dose reduction techniques: automated exposure control, adjustment of the mA and/or kV according to patient size, and/or use of iterative reconstruction technique. COMPARISON: Abdomen pelvis radiographs, 03/04/2023. FINDINGS: BONES/JOINTS: Degenerative changes in the lower lumbar spine characterized by facet and endplate osteophytosis and small disc bulges and/or herniations with at least mild spinal canal stenosis and [id number] bilateral neural foraminal narrowing at L4-5 and L5-S1. Moderate to severe right and mild to moderate left hip joint arthrosis, moderate tricompartmental left knee joint arthrosis, and status post right total knee arthroplasty. There is severe superior joint space narrowing at the right hip with marked acetabular sclerosis, hypertrophy, and subcortical cystic changes. No acute fracture. No subluxation. Normal alignment. No lytic or blastic osseous lesions are identified. SOFT TISSUES: No significant abnormality. No soft tissue swelling or gas. No radiopaque foreign body. OTHER FINDINGS: Colonic diverticulosis without visualized evidence of acute diverticulitis. CT/Extremity Lower without Contra IMPRESSION: 1. Examination used for operative planning. 2. Colonic diverticulosis without visualized evidence of acute diverticulitis. 3. Moderate to severe right and mild to moderate left hip joint arthrosis, moderate tricompartmental left knee joint arthrosis, and status post right total knee arthroplasty. Electronically Signed: Freddie Guadarrama DO at 16:59 EST ,
--- OUTSIDE RECORDS SUMMARY | 2023-03-28 09:52 | XMS RPT_ITS | CCD ---
Author Name Unknown Address [address] [place] [address] Organization [facility] Care Team Providers Care Concierge Manager Name Role Phone Daphne Will PA-C Unavailable Lynda Patel DC Unavailable Update Needed Unavailable Unavailable Dafne Sepulveda Unavailable Unavailable Violeta Gonzalez MD Unavailable Unavailable DR CANDELARIO STEVENSON DO A Primary Care Physician [facility] PT, [place] Unavailable Unavailable ABRIL BLACKWELL MD Attending Unavailable DR CANDELARIO STEVENSON DO Primary Care Unavailab ABRIL Barron MD Attending Unavailable DR CANDELARIO STEVENSON DO Primary Care Unavailab jef Allergies Allergy Classification Reported Allergen(s) Allergy Type Date of Onset Reaction(s) Facility (5 sources) etodolac Drug Allergy 08-03-19 16 Abdominal Pain [facility] Work Phone: (5 sources) meloxicam Drug Allergy 03-26-19 16 Nausea [facility] Work Phone: (5 sources) sulfacetamide Drug Allergy 09-23-19 12 [facility]: (5 sources) venlafaxine Drug Allergy 08-03-19 16 Paresthesia, Abd Pain [facility] Work Phone: (5 sources) LATEX EXAM GLOVES drug allergy 09-23-19 12 [facility] Work Phone: (2 sources) Latex Allergy to substance itching [facility] (2 sources) Sulfamethoxazole; Translations: [sulfamethoxazole ] Drug Allergy [facility] Medications Current Medications Medication Drug Class(es) Dates Sig (Normalized) Sig (Original) acetaminophen 325 mg / oxyCODONE hydrochloride 5 mg oral tablet (20 sources) Opioid Agonist Start: 07-01-2014 take 1 tablet by mouth every four hours as needed for pain Percocet 325/5 oral tablet Dose = 1 tab(s), Oral, q4h, PRN for pain, 0 Refill(s) Start Date: 07/01/14 Status: Ordered Completed/Discontinued Medications Medication Drug Class(es) Dates Sig (Normalized) Sig (Original) acetaminophen 325 mg / HYDROcodone bitartrate 5 mg oral tablet (2 sources) Opioid Agonist Start: 10-19-2021 End: 10-22-2021 take 1 tablet by mouth every six hours as needed for pain Rawlings 325- 5 mg oral tablet Dose = 1 tab(s), Oral, q6h, PRN as needed for pain, # 10 tab(s), 0 Refill(s), Acute left otitis media, 87.7 Start Date: 10/19/21 Stop Date: 10/22/21 Status: Ordered amoxicillin 875 mg / clavulanate 125 mg oral tablet (2 sources) Penicillin-class Antibacterial Start: 10-19-2021 End: 10-26-2021 take 1 tablet by mouth every twelve hours amoxicillin-clavulan ate 875 mg-125 mg oral tablet 1 tab(s), Oral, q12h, # 14 tab(s), 0 Refill(s), Acute left otitis media, 87.7 Start Date: 10/19/21 Stop Date: 10/26/21 Status: Ordered cyclobenzaprine hydrochloride 10 mg oral tablet (10 sources) Muscle Relaxant Start: 09-23-2011 End: 09-20-2014 take 1 tablet by mouth twice daily CYCLOBENZAPRINE HCL 10 MG TABS One tablet by mouth twice daily CYCLOBENZAPRINE HCL [id number] Dafne Herrera etodolac 400 mg oral tablet (10 sources) Nonsteroidal Anti-inflammatory Drug Start: 05-25-2015 End: 08-03-2015 take 1 tablet by mouth once daily for arthritis ETODOLAC 400 MG TABS One tablet by mouth daily for arthritis ETODOLAC [id number] Candelario Stevenson DO ibuprofen 200 mg oral tablet (10 sources) Nonsteroidal Anti-inflammatory Drug Start: 09-20-2014 End: 09-20-2014 MOTRIN IB 200 MG TABS Two tablets by mouth every 2-4 hours as needed for pain. IBUPROFEN [id number] Candelario Stevenson DO meloxicam 7.5 mg oral tablet (20 sources) Nonsteroidal Anti-inflammatory Drug Start: 12-25-2014 End: 03-26-2015 take 1 tablet by mouth once daily MELOXICAM 7.5 MG TABS One tablet by mouth daily MELOXICAM [id number] Candelario Stevenson DO Problems Active Problems Problem Classification Problem Date Documented Date Episodic/Chronic Anxiety disorders (5 sources) Anxiety disorder; Translations: [Anxiety disorder, unspecified] Onset: 09-20-2014 09-20-2014 Chronic Disorders of lipid metabolism (5 sources) Dyslipidemia; Translations: [Hyperlipidemia, unspecified] Onset: 09-20-2014 09-20-2014 Chronic E Codes: Natural/environment (1 source) Bite of nonvenomous arthropod; Translations: [Bitten or stung by nonvenomous insect and other nonvenomous arthropods, initial encounter] Onset: 05-04-2022 Episodic Joint disorders and dislocations; trauma-related (5 sources) Chondromalacia of patella; Translations: [Chondromalacia patellae, right knee] 09-23-2011 Chronic Mood disorders (5 sources) Depressive disorder; Translations: [Major depressive disorder, single episode, unspecified] Onset: 06-28-2015 06-28-2015 Chronic Osteoarthritis (18 sources) Osteoarthritis of knee; Translations: [Bilateral osteoarthritis of knees] Onset: 10-17-2014 Resolved: 12-25-2014 10-19-2014 Chronic Other nervous system disorders (5 sources) Ulnar neuropathy; Translations: [Lesion of ulnar nerve, unspecified upper limb] Onset: 01-01-2016 01-01-2016 Chronic Other non-traumatic joint disorders (5 sources) Loose body in elbow joint; Translations: [Loose body in unspecified elbow] Onset: 11-15-2015 11-15-2015 Chronic Other nutritional; endocrine; and metabolic disorders (20 sources) Morbid obesity; Translations: [Body mass index 30+ - obesity] Onset: 09-20-2014 Resolved: 08-03-2015 09-20-2014 Chronic Other nutritional; endocrine; and metabolic disorders (1 source) H/O: diabetes mellitus; Translations: [Personal history of other endocrine, metabolic, and immunity disorders] Episodic Otitis media and related conditions (1 source) Otitis media; Translations: [Otitis media, unspecified, left ear] Onset: 10-19-2021 Episodic Spondylosis; intervertebral disc disorders; other back problems (5 sources) Lumbar disc prolapse with radiculopathy; Translations: [Intervertebral disc disorders with radiculopathy, lumbar region] Onset: 11-26-2016 11-27-2016 Chronic Substance-related disorders (5 sources) Substance abuse; Translations: [Other psychoactive substance abuse, uncomplicated] Onset: 05-25-2015 05-25-2015 Chronic Unclassified (5 sources) Long-term drug therapy; Translations: [Other residential (current) drug therapy] Onset: 05-25-2015 05-25-2015 Unclassified (5 sources) Postoperative physical examination; Translations: [Encounter for other specified surgical aftercare] Onset: 01-01-2016 01-01-2016 Unclassified (2 sources) Screening for malignant neoplasm of colon ; Translations: [Encounter for screening for malignant neoplasm of colon] Onset: 02-04-2017 02-04-2017 Past or Other Problems Problem Classification Problem Date Documented Da te Episodic/Chronic Diabetes mellitus without complication (5 sources) Impaired glucose tolerance; Translations: [Other abnormal glucose] Onset: 11-23-2014 11-23-2014 Episodic Joint disorders and dislocations; trauma-related (15 sources) Tear of lateral meniscus of knee; Translations: [Tear of medial meniscus of knee] Resolved: 09-20-2014 11-10-2011 Episodic Other bone disease and musculoskeletal deformities (15 sources) Pelvic somatic dysfunction; Translations: [Segmental and somatic dysfunction] Onset: 11-26-2016 11-27-2016 Episodic Other circulatory disease (10 sources) Elevated blood-pressure reading without diagnosis of hypertension; Translations: [Elevated blood-pressure reading, without diagnosis of hypertension] Onset: 09-20-2014 Resolved: 11-23-2014 09-20-2014 Episodic Other connective tissue disease (5 sources) Synovitis; Translations: [Synovitis and tenosynovitis, unspecified] Onset: 01-01-2016 01-01-2016 Episodic Other injuries and conditions due to external causes (5 sources) Other injury of unspecified body region; Translations: [Other injury of unspecified body region] Onset: 03-20-2016 03-20-2016 Episodic Other non-traumatic joint disorders (20 sources) Knee pain; Translations: [Pain in elbow] Onset: 10-17-2014 Resolved: 12-25-2014 12-25-2014 Episodic Spondylosis; intervertebral disc disorders; other back problems (5 sources) Lumbar radiculopathy; Translations: [Radiculopathy, lumbar region] Onset: 08-23-2015 08-23-2015 Episodic Unclassified (5 sources) Screening for malignant neoplasm of breast ; Translations: [Other specified health status] Onset: 09-20-2014 Resolved: 09-27-2014 09-20-2014 NEGATED: Highlighted row has not occurred!Residual codes; unclassified (1 source) Disease Episodic Results Test Name Value Interpretation Reference Range Facil ity Vital Signs Date Time Vital Sign Value Performing Clinician Facility 05-04-2022 17:47-0500 Body temperature 98.78 [degF] ABRIL BLACKWELL MD [facility] 05-04-2022 17:47-0500 Diastolic Blood Pressure Non-Invasive 109 1 ABRIL BLACKWELL MD [facility] 05-04-2022 17:47-0500 Heart rate 84 /min ABRIL BLACKWELL MD [facility] 05-04-2022 17:47-0500 Respiratory rate 14 /min ABRLI BLACKWELL MD [facility] 05-04-2022 17:47-0500 Systolic Blood Pressure Non-Invasive 158 1 ABRIL BLACKWELL MD [facility] 10-19-2021 18:23-0400 Body temperature 99.68 [degF] ABRIL BLACKWELL MD [facility] 10-19-2021 18:23-0400 Diastolic blood pressure 86 mm[Hg] ABRIL BLACKWELL MD [facility] 10-19-2021 18:23-0400 Heart rate 102 /min ABRIL BLACKWELL MD [facility] 10-19-2021 18:23-0400 Respiratory rate 18 /min ABRIL BLACKWELL MD [facility] 10-19-2021 18:23-0400 Systolic blood pressure 178 mm[Hg] ABRIL BLACKWELL MD [facility] 11-26-2016 10:25-0400 BMI (Body Mass Index) 35.42 kg/m2 Lynda Dossi DC [facility] Work Phone: 11-26-2016 10:25-0400 Pulse (Heart Rate) 81 /min Lynda Dossi DC [facility] Work Phone: 11-26-2016 10:25-0400 Respiratory Rate 19 /min Lynda Dossi DC [facility] Work Phone: 11-26-2016 10:25-0400 Weight 90.72 kg Lynda Dossi DC [facility] Work Phone: 08-23-2015 16:34-0400 Body Temperature 98.2 [degF] Lynda Dossi DC [facility] Work Phone: 08-23-2015 16:34-0400 BP Diastolic 70 mm[Hg] Lynda Dossi DC [facility] Work Phone: 08-23-2015 16:34-0400 BP Systolic 104 mm[Hg] Lynda Dossi DC [facility] Work Phone: 08-23-2015 16:34-0400 BSA (Body Surface Area) 1.89 m2 Lynda Dossi DC [facility] Work Phone: 09-20-2014 11:31-0314 Height 160.02 cm Lynda Garciasi DC [facility] Work Phone: Encounters Encounter Date Encounter Type Care Provider Facility Start: 05-04-2022 End: 05-04-2022 Emergency department patient visit ABRIL BLACKWELL MD Facility:B Start: 05-04-2022 End: 05-04-2022 Emergency department patient visit ABRIL BLACKWELL MD [facility] Start: 10-19-2021 End: 10-19-2021 Emergency department patient visit ABRIL BLACKWELL MD Facility:[facility] Start: 10-19-2021 End: 10-19-2021 Emergency department patient visit ABRIL BLACKWELL MD [facility] Procedures Date Procedure Procedure Detail Performing Clinician Start: 01-26-2017 End: 01-26-2017 Chiropractic manipulative tx spinal 3-4 regions Lynda B Dossi DC Work Phone: Start: 01-12-2017 End: 01-12-2017 Chiropractic manipulative tx spinal 3-4 regions Lynda B Dossi DC Work Phone: Start: 01-01-2017 End: 01-01-2017 Chiropractic manipulative tx spinal 3-4 regions Lynda B Dossi DC Work Phone: Start: 12-25-2016 End: 12-25-2016 Chiropractic manipulative tx spinal 3-4 regions Lynda B Dossi DC Work Phone: Start: 12-23-2016 End: 12-23-2016 Chiropractic manipulative tx spinal 3-4 regions Lynda B Dossi DC Work Phone: Start: 12-18-2016 End: 12-18-2016 Chiropractic manipulative tx spinal 3-4 regions Lynda B Dossi DC Work Phone: Start: 12-10-2016 End: 12-15-2016 Chiropractic manipulative tx spinal 3-4 regions Lynda B Dossi DC Work Phone: Start: 12-09-2016 End: 12-09-2016 Chiropractic manipulative tx spinal 3-4 regions Lynda B Dossi DC Work Phone: Start: 12-08-2016 End: 12-08-2016 Chiropractic manipulative tx spinal 3-4 regions Lynda B Dossi DC Work Phone: Start: 12-04-2016 End: 12-04-2016 Chiropractic manipulative tx spinal 3-4 regions Lynda B Dossi DC Work Phone: Start: 12-03-2016 End: 12-04-2016 Chiropractic manipulative tx spinal 3-4 regions Lynda B Dossi DC Work Phone: Start: 12-01-2016 End: 12-01-2016 Chiropractic manipulative tx spinal 3-4 regions Lynda B Dossi DC Work Phone: Start: 05-27-2015 End: 05-30-2015 other Candelario Stevenson DO Work Phone: Start: 05-25-2015 End: 05-27-2015 *VUDS Urine Drug Screen Candelario Stevenson DO Work Phone: Start: 11-23-2014 End: 02-20-2015 Hemoglobin glycosylated a1c Candelario Stevenson DO Work Phone: Start: 10-18-2014 End: 02-20-2015 Rheumatology Referral Candelario Stevenson DO Work Phone: Start: 09-20-2014 End: 02-20-2015 Mammogram, screening Candelario Stevenson DO Work Phone: Arthroscopy of knee ABRIL SILVA MD Plan of Treatment Date Care Activity Detail Author Start: 03-02-2017 End: 03-02-2017 Appointment Appointment [facility] Work Phone: Start: 02-10-2017 End: 02-10-2017 Appointment Appointment [facility] Work Phone: Start: 02-04-2017 End: 02-04-2017 Colonoscopy flx dx w/collj spec when pfrmd Colonoscopy [facility] Work Phone: Start: 01-26-2017 End: 01-26-2017 Follow up Appt 2x/Month Follow up Appt 2x/Month [facility] Work Phone: Start: 01-26-2017 End: 01-26-2017 Appointment Appointment [facility] Work Phone: Start: 01-12-2017 End: 01-12-2017 Follow up Appt 2x/Month Follow up Appt 2x/Month [facility] Work Phone: Start: 01-12-2017 End: 01-12-2017 Appointment Appointment [facility] Work Phone: Start: 01-01-2017 End: 01-01-2017 Follow up Appt 1x/week Follow up Appt 1x/week [facility] Work Phone: Start: 12-25-2016 End: 12-25-2016 Follow up Appt 1x/week Follow up Appt 1x/week [facility] Work Phone: Start: 12-23-2016 End: 12-23-2016 Follow up Appt 2x/week Follow up Appt 2x/week [facility] Work Phone: Start: 12-18-2016 End: 12-18-2016 Follow up Appt 2x/week Follow up Appt 2x/week [facility] Work Phone: Start: 12-10-2016 End: 12-15-2016 Follow up Appt 2x/week Follow up Appt 2x/week [facility] Work Phone: Start: 12-09-2016 End: 12-09-2016 Follow up Appt 3x/week Follow up Appt 3x/week [facility] Work Phone: Start: 12-08-2016 End: 12-08-2016 Follow up Appt 3x/week Follow up Appt 3x/week [facility] Work Phone: Start: 12-04-2016 End: 12-04-2016 Follow up Appt 3x/week Follow up Appt 3x/week [facility] Work Phone: Start: 12-03-2016 End: 12-04-2016 Follow up Appt 3x/week Follow up Appt 3x/week [facility] Work Phone: Start: 12-01-2016 End: 12-01-2016 Follow up Appt 3x/week Follow up Appt 3x/week [facility] Work Phone: Start: 11-26-2016 End: 11-27-2016 Follow up Appt 3x/week Follow up Appt 3x/week [facility] Work Phone: Start: 07-23-2016 End: 07-23-2016 Physical Therapy General [facility], [address] [place] [address], [id number] [facility] Work Phone: Start: 03-20-2016 End: 03-20-2016 Radex elbow complete minimum 3 views X-Ray, Elbow [facility] Work Phone: Start: 01-02-2016 End: 01-02-2016 Occupational Therapy General Occupational Therapy [facility], [address] [place] [address], [id number] [facility] Work Phone: Start: 11-15-2015 End: 11-15-2015 Mri any jt upper extremity w/o contrast matrl MRI Joint Upper Extremity [facility] Work Phone: Start: 11-15-2015 End: 11-15-2015 Radex elbow complete minimum 3 views X-Ray, Elbow [facility] Work Phone: Start: 08-27-2015 End: 07-23-2016 Physical Therapy General [facility], [address] [place], [address] [facility] Work Phone: Start: 08-23-2015 End: 08-23-2015 Radex spine lumbosacral minimum 4 views X-Ray, Spine, Lumbosacral 2-3 views [facility] Work Phone: Start: 08-23-2015 End: 08-23-2015 X-ray exam of hip X-Ray, Hip Unilateral [facility] Work Phone: Start: 05-27-2015 End: 05-30-2015 Other Other [facility] Work Phone: Start: 05-25-2015 End: 05-27-2015 *VUDS Urine Drug Screen *VUDS Urine Drug Screen [facility] Work Phone: Start: 11-23-2014 End: 02-20-2015 Hemoglobin A1c/Hemoglobin.total mass fraction (Bld) HGB A1C (Office) [facility] Work Phone: Start: 11-23-2014 End: 11-23-2014 Radiologic exam knee complete 4/more views X-Ray, Knee [facility] Work Phone: Start: 10-18-2014 End: 02-20-2015 Rheumatology Referral Rheumatology Referral Chasidy Rodriguez MD, [facility], [address], [place], [address] [facility] Work Phone: Start: 10-17-2014 End: 10-17-2014 Radiologic exam knee complete 4/more views X-Ray, Knee [facility] Work Phone: Start: 09-20-2014 End: 02-20-2015 Mammogram, screening Mammogram, Screening, both breasts [facility] Work Phone: Payers Date Payer Category Payer Private Health Insurance [id number] 1965 Unknown [id number] 1965 Unknown [id number] Social History Date Type Detail Facility Start: 04-22-2018 Tobacco smoking status Light tobacco smoker (finding) [facility] Sex Assigned At Sex [facility] NEGATED: Highlighted row - - [facility] Work Phone: Functional Status Date Assessment Result Facility 05-04-2022 Functional Status ID band on, Call device within reach, Bed in low position, Wheels locked, Safety level maintained [facility] 10-19-2021 Functional Status ID band on, Call device within reach, Bed in low position, Wheels locked [facility] NEGATED: Highlighted row Functional performance Functional status health issues are not documented [facility] Work Phone: Mental Status Date Assessment Result Facility 05-04-2022 Mental Status Oriented x 4 [facility] 10-19-2021 Mental Status Oriented x 4 [facility] NEGATED: Highlighted row Cognitive function [Interpretation] Cognitive status health issues are not documented [facility] Work Phone: Hospital Discharge instructions 05-04-2022 Note Date & Type Note Facility 05-04-2022 Hospital Discharg e instructions Patient Education 05/04/2022 18:12:10 Insect Bites and Stings Insect, Spider, and Scorpion Bites and Stings The black (top) and brown recluse (bottom) are two poisonous spiders found in the [facility]. Most insect bites are harmless and cause only minor swelling or itching. But if you re allergic to insects such as wasps or bees, a sting can cause a life-threatening allergic reaction. Some ticks can carry and transmit serious diseases. The venom (poison) from scorpions and certain spiders can also be deadly, although this is rare. Knowing when to seek emergency care could save your life. When to go to the emergency room (ER) Scorpion sting Bite from a black, red, or brown spider or brown recluse spider Severe pain or swelling at the site of bite A tick that is embedded in your skin and can not be easily removed at home Signs of an allergic reaction such as: oHives oSwelling of your eyes, lips, or the inside of your throat oTrouble breathing oDizziness or confusion What to expect in the ER If you re having trouble breathing, you ll be given oxygen through a mask. In case of severe breathing difficulty, you may have a tube inserted in your throat and be placed on a ventilator (breathing machine). If you are having a severe allergic reaction from a sting (called anaphylaxis), you may be given a shot of epinephrine. If it is known that you are allergic to bee or wasp stings, your doctor may give you a prescription for an epi-pen that you can keep with you at all times in case of a sting. You may receive antivenin (a substance that reverses the effects of poison) for some spider bites and scorpion stings. Because antivenin can sometimes cause other problems, your doctor will weigh the risks and benefits of this treatment. Steroids such as prednisone are often used to treat allergic reactions. In many cases, your doctor will also prescribe an antihistamine to help relieve itching. Easing symptoms of an insect bite or sting Try to remove a stinger you can see. Use your fingernail, a knife edge, or credit card to scrape against the skin. Do not squeeze or pull. Apply ice or a cold compress to reduce pain and swelling (keep a thin cloth between the cold source and the skin). [id number] The [employer]. [address] [place] [address]. All rights reserved. This information is not intended as a substitute for professional medical care. Always follow your healthcare professional's instructions. Follow Up Care 05/04/2022 17:41:43 With:CANDELARIO STEVENSON DO Address: [address] [place] [address]- When:3-5 days [facility] Emergency department Discharge summary 05-04-2022 Note Date & Type Note Facility 05-04-2022 Emergency department Discharge summary Discharge Instructions Thank you for allowing [facility] to assist you with your healthcare needs. The following is important discharge information regarding your hospital visit. Diagnosis from Today's Visit Bite of bug Wrist pain-swelling What to Do Next Instructions from Your Care Team No qualifying data available. Post Acute Orders No qualifying data available. You Need to Schedule the Following Appointments Follow Up with CANDELARIO STEVENSON DO When Within 3-5 days Where: [address] [place] [address]- Allergies Latex (itching) sulfamethoxazole Medications Please ask your primary doctor or pharmacist before taking any other medication not listed, including over the counter drugs, herbal medications, vitamins and or supplements as they may interact with your home medications. What How Much When Why Instructions Last Dose Changed doxycycline (doxycycline hyclate 100 mg oral capsule) 1 cap by mouth Two (2) times a day Duration: 7 Days Changed doxycycline (doxycycline hyclate 100 mg oral capsule) 1 cap by mouth Two (2) times a day Bite of bug Duration: 5 Days Printed Prescription Changed predniSONE (predniSONE 20 mg oral tablet) 2 tab(s) by mouth Every day Bite of bug Duration: 5 Days Printed Prescription Changed predniSONE (predniSONE 20 mg oral tablet) 2 tab(s) by mouth Every day Acute left otitis media Duration: 5 Days Changed predniSONE (prednisone 20mg tab (TAPER)) Taper 40-30-20-10 x 2 days each dose by mouth Every day Duration: 8 Days Unchanged acetaminophen-hydrocodone (Rawlings 325- 5 mg oral tablet) 1 tab(s) by mouth Every 6 hours as needed for as needed for pain Acute left otitis media Duration: 3 Days Unchanged acetaminophen-oxyCODONE (Percocet 325/ 5 oral tablet) 1 tab(s) by mouth Every 4 hours as needed for for pain Unchanged amoxicillin-clavulanate (amoxicillin-clavulanate 875 mg-125 mg oral tablet) 1 tab(s) by mouth Every 12 hours Acute left otitis media Duration: 7 Days Unchanged LORazepam (Ativan) Please take this list to your next doctor s visit. Bring all medications you take, including over the counter medications, herbals and other supplements with you to your doctor s visit. Patients and families are reminded to discard old lists and to update any records with all medication providers or retail pharmacies. Medication Leaflets acetaminophen and hydrocodone (a SEET a MIN oh fen and kilo droasia KOE done) Hycet, Lorcet, Rawlings, Verdrocet, Vicodin, Xodol, Zamicet What is the most important information I should know about acetaminophen and hydrocodone? MISUSE OF OPIOID MEDICINE CAN CAUSE ADDICTION, OVERDOSE, OR . Keep the medication in a place where others cannot get to it. Taking opioid medicine during may cause life-threatening withdrawal symptoms in the . Fatal side effects can occur if you use opioid medicine with alcohol, or with other drugs that cause drowsiness or slow your breathing. Stop taking this medicine and call your doctor right away if you have skin redness or a rash that spreads and causes blistering and peeling. What is acetaminophen and hydrocodone? Acetaminophen and hydrocodone is a combination medicine used to relieve moderate to severe pain. Acetaminophen and hydrocodone contains an opioid medicine, and may be habit-forming. Acetaminophen and hydrocodone may also be used for purposes not listed in this medication guide. What should I discuss with my healthcare provider before taking acetaminophen and hydrocodone? You should not use this medicine if you are allergic to acetaminophen or hydrocodone, or if you have: severe asthma or breathing problems; or a blockage in your stomach or intestines. Tell your doctor if you have ever had: breathing problems, sleep apnea (breathing stops during sleep); liver disease; a drug or alcohol addiction; kidney disease; a head injury or seizures; urination problems; or problems with your thyroid, pancreas, or gallbladder. If you use opioid medicine while you are , your baby could become dependent on the drug. This can cause life-threatening withdrawal symptoms in the baby after it is born. Babies born dependent on opioids may need medical treatment for several weeks. Ask a doctor before using opioid medicine if you are . Tell your doctor if you notice severe drowsiness or slow breathing in the nursing baby. How should I take acetaminophen and hydrocodone? Follow all directions on your prescription label. Never take this medicine in larger amounts, or for longer than prescribed. An overdose can damage your liver or cause . Tell your doctor if you feel an increased urge to use more of this medicine. Never share this medicine with another person, especially someone with a history of drug abuse or addiction. MISUSE CAN CAUSE ADDICTION, OVERDOSE, OR . Keep the medicine in a place where others cannot get to it. Selling or giving away this medicine is against the law. Measure liquid medicine carefully. Use the dosing syringe provided, or use a medicine dose-measuring device (not a kitchen spoon). If you need surgery or medical tests, tell the doctor ahead of time that you are using this medicine. You should not stop using this medicine suddenly. Follow your doctor's instructions about tapering your dose. Store at room temperature away from moisture and heat. Keep track of your medicine. You should be aware if anyone is using it improperly or without a prescription. Do not keep leftover opioid medication. Just one dose can cause in someone using this medicine accidentally or improperly. Ask your pharmacist where to locate a drug take-back disposal program. If there is no take-back program, flush the unused medicine down the toilet. What happens if I miss a dose? Since this medicine is used for pain, you are not likely to miss a dose. Skip any missed dose if it is almost time for your next dose. Do not use two doses at one time. What happens if I overdose? Seek emergency medical attention or call the Poison Help line at . An overdose of this medicine can be fatal, especially in a child or other person using the medicine without a prescription. Overdose symptoms may include nausea, vomiting, sweating, severe drowsiness, pinpoint pupils, slow breathing, or no breathing. Your doctor may recommend you get naloxone (a medicine to reverse an opioid overdose) and keep it with you at all times. A person caring for you can give the naloxone if you stop breathing or don't wake up. Your caregiver must still get emergency medical help and may need to perform CPR (cardiopulmonary resuscitation) on you while waiting for help to arrive. Anyone can buy naloxone from a pharmacy or local health department. Make sure any person caring for you knows where you keep naloxone and how to use it. What should I avoid while taking acetaminophen and hydrocodone? Avoid driving or operating machinery until you know how this medicine will affect you. Dizziness or drowsiness can cause falls, accidents, or severe injuries. Do not drink alcohol. Dangerous side effects or could occur. Ask a doctor or pharmacist before using any other medicine that may contain acetaminophen (sometimes abbreviated as APAP). Taking certain medications together can lead to a fatal overdose. What are the possible side effects of acetaminophen and hydrocodone? Get emergency medical help if you have signs of an allergic reaction: hives; difficulty breathing; swelling of your face, lips, tongue, or throat. Opioid medicine can slow or stop your breathing, and may occur. A person caring for you should give naloxone and/or seek emergency medical attention if you have slow breathing with long pauses, blue colored lips, or if you are hard to wake up. In rare cases, acetaminophen may cause a severe skin reaction that can be fatal. This could occur even if you have taken acetaminophen in the past and had no reaction. Stop taking this medicine and call your doctor right away if you have skin redness or a rash that spreads and causes blistering and peeling. Call your doctor at once if you have: noisy breathing, sighing, shallow breathing, breathing that stops; a light-headed feeling, like you might pass out; liver problems--nausea, upper stomach pain, tiredness, loss of appetite, dark urine, yomaira-colored stools, jaundice (yellowing of the skin or eyes); low cortisol levels-- nausea, vomiting, loss of appetite, dizziness, worsening tiredness or weakness; o high levels of serotonin in the body--agitation, hallucinations, fever, sweating, shivering, fast heart rate, muscle stiffness, twitching, loss of coordination, nausea, vomiting, diarrhea. Serious breathing problems may be more likely in older adults and in those who are debilitated or have wasting syndrome or chronic breathing disorders. Common side effects include: dizziness, drowsiness, feeling tired; nausea, vomiting, stomach pain; constipation; or headache. This is not a complete list of side effects and others may occur. Call your doctor for medical advice about side effects. You may report side effects to FDA at 8-630-NTE-4332. What other drugs will affect acetaminophen and hydrocodone? You may have breathing problems or withdrawal symptoms if you start or stop taking certain other medicines. Tell your doctor if you also use an antibiotic, antifungal medication, heart or blood pressure medication, seizure medication, or medicine to treat HIV or hepatitis C. Opioid medication can interact with many other drugs and cause dangerous side effects or . Be sure your doctor knows if you also use: cold or allergy medicines, bronchodilator asthma/COPD medication, or a diuretic ('water pill'); medicines for motion sickness, irritable bowel syndrome, or overactive bladder; other opioids--opioid pain medicine or prescription cough medicine; a sedative like Valium--diazepam, alprazolam, lorazepam, Xanax, Klonopin, Versed, and others; drugs that make you sleepy or slow your breathing--a sleeping pill, muscle relaxer, medicine to treat mood disorders or mental illness; drugs that affect serotonin levels in your body--a stimulant, or medicine for depression, Parkinson's disease, migraine headaches, serious infections, or nausea and vomiting. This list is not complete. Other drugs may affect acetaminophen and hydrocodone, including prescription and fjys-ypi-vewuudi medicines, vitamins, and herbal products. Not all possible interactions are listed here. Where can I get more information? Your doctor or pharmacist can provide more information about acetaminophen and hydrocodone. Remember, keep this and all other medicines out of the reach of children, never share your medicines with others, and use this medication only for the indication prescribed. Every effort has been made to ensure that the information provided by [employer] is accurate, up-to-date, and complete, but no guarantee is made to that effect. Drug information contained herein may be time sensitive. [employer] information has been compiled for use by healthcare practitioners and consumers in the [place] and therefore [employer] does not warrant that uses outside of the [place] are appropriate, unless specifically indicated otherwise. [employer] drug information does not endorse drugs, diagnose patients or recommend therapy. [employer] drug information is an informational resource designed to assist licensed healthcare practitioners in caring for their patients and/or to serve consumers viewing this service as a supplement to, and not a substitute for, the expertise, skill, knowledge and judgment of healthcare practitioners. The absence of a warning for a given drug or drug combination in no way should be construed to indicate that the drug or drug combination is safe, effective or appropriate for any given patient. [employer] does not assume any responsibility for any aspect of healthcare administered with the aid of information [employer] provides. The information contained herein is not intended to cover all possible uses, directions, precautions, warnings, drug interactions, allergic reactions, or adverse effects. If you have questions about the drugs you are taking, check with your doctor, nurse or pharmacist. Copyright 6844-1596 [employer] Version: 16.03. Revision Date: 04/17/2020. prednisone (PRED ni sone) [place] What is the most important information I should know about prednisone? You should not use prednisone if you have a fungal infection anywhere in your body. You should not stop using prednisone suddenly. Follow your doctor's instructions about tapering your dose. What is prednisone? Prednisone is a steroid that reduces inflammation in the body, and also suppresses your immune system. Prednisone is used to treat many different conditions such as hormonal disorders, skin diseases, arthritis, lupus, psoriasis, allergic conditions, ulcerative colitis, Crohn's disease, eye diseases, lung diseases, asthma, tuberculosis, blood cell disorders, kidney disorders, leukemia, lymphoma, multiple sclerosis, organ transplant rejection, swelling from a brain tumor or injury. Prednisone may also be used for purposes not listed in this medication guide. What should I discuss with my healthcare provider before taking prednisone? You should not use prednisone if you are allergic to it, or if you have a fungal infection anywhere in your body. Steroid medication can weaken your immune system, making it easier for you to get an infection or worsening an infection you already have. Tell your doctor about any illness or infection you've had within the past several weeks. Tell your doctor if you have ever had: heart problems, high blood pressure, or a heart attack; glaucoma or cataracts; herpes infection of the eyes; past or present tuberculosis; a parasite infection that causes diarrhea (such as threadworms); any illness that causes diarrhea; underactive thyroid; diabetes; a stomach ulcer, diverticulitis; a colostomy or ileostomy; osteoporosis or low bone mineral density (steroid medication can increase your risk of bone loss); low levels of calcium or potassium in your blood; cirrhosis or other liver disease; mental illness or psychosis; or a muscle disorder such as myasthenia gravis. Long-term use of steroids may lead to bone loss (osteoporosis), especially if you smoke or drink alcohol, if you do not exercise, or if you do not get enough vitamin D or calcium in your diet. It is not known whether this medicine will harm an unborn baby. Tell your doctor if you are or plan to become . You should not breastfeed while using prednisone. How should I take prednisone? Follow all directions on your prescription label and read all medication guides or instruction sheets. Your doctor may occasionally change your dose. Use the medicine exactly as directed. Prednisone is taken daily or every other day, depending on the condition being treated. You may need to take the medicine at a certain time of day. Follow your doctor's instructions about when and how often to take this medicine. Take with food if prednisone upsets your stomach. Measure liquid medicine carefully. Use the dosing syringe provided, or use a medicine dose-measuring device (not a kitchen spoon). Swallow the delayed-release tablet whole and do not crush, chew, or break it. Prednisone can weaken (suppress) your immune system, and you may get an infection more easily. Call your doctor if you have signs of infection (fever, weakness, cold or flu symptoms, skin sores, diarrhea, frequent or recurring illness). If you have major surgery or a severe injury or infection, your prednisone dose needs may change. Make sure any doctor caring for you knows you are using this medicine. If you use this medicine long-term, you may need medical tests and vision exams. In case of emergency, wear or carry medical identification to let others know you use a steroid. You should not stop using prednisone suddenly. Follow your doctor's instructions about tapering your dose. Store at room temperature away from moisture, heat, and light. What happens if I miss a dose? Take the medicine as soon as you can, but skip the missed dose if it is almost time for your next dose. Do not take two doses at one time. What happens if I overdose? Seek emergency medical attention or call the Poison Help line at . High doses or long-term use of prednisone can lead to thinning skin, easy bruising, changes in body fat (especially in your face, neck, back, and waist), increased acne or facial hair, menstrual problems, impotence, or loss of interest in sex. What should I avoid while taking prednisone? Do not receive a 'live' vaccine while using prednisone. The vaccine may not work as well and may not fully protect you from disease. Live vaccines include measles, mumps, rubella (MMR), polio, rotavirus, typhoid, yellow fever, varicella (chickenpox), zoster (shingles), and nasal flu (influenza) vaccine. Avoid being near people who are sick or have infections. Call your doctor for preventive treatment if you are exposed to chickenpox or measles. These conditions can be serious or even fatal in people who are using steroid medicine. Avoid drinking alcohol. What are the possible side effects of prednisone? Get emergency medical help if you have signs of an allergic reaction: hives; difficult breathing; swelling of your face, lips, tongue, or throat. Call your doctor at once if you have: muscle pain or weakness; blurred vision, tunnel vision, eye pain, or seeing halos around lights; severe depression, changes in personality, unusual thoughts or behavior; bloody or tarry stools, coughing up blood or vomit that looks like coffee grounds; swelling, rapid weight gain, feeling short of breath; irregular heartbeats; severe headache, pounding in your neck or ears; decreased adrenal gland hormones--muscle weakness, tiredness, diarrhea, nausea, menstrual changes, skin discoloration, craving salty foods, and feeling light-headed; or low potassium level--leg cramps, constipation, irregular heartbeats, fluttering in your chest, increased thirst or urination, numbness or tingling, muscle weakness or limp feeling. Prednisone can affect growth in children. Tell your doctor if your child is not growing at a normal rate while using this medicine. Common side effects may include: weight gain (especially in your face or your upper back and torso); increased appetite; mood changes, trouble sleeping; changes in your menstrual periods; problems with memory or thought; muscle or joint pain; weakness; headache, dizziness, spinning sensation; nausea, bloating, loss of appetite; slow wound healing; or acne, increased sweating, thinning skin, bruising, pinpoint spots under your skin. This is not a complete list of side effects and others may occur. Call your doctor for medical advice about side effects. You may report side effects to FDA at 9-028-DYN-3602. What other drugs will affect prednisone? Sometimes it is not safe to use certain medications at the same time. Some drugs can affect your blood levels of other drugs you take, which may increase side effects or make the medications less effective. Tell your doctor about all your current medicines. Many drugs can affect prednisone, especially: bupropion; cyclosporine; digoxin; ketoconazole; an antibiotic; control pills or hormone replacement therapy; a diuretic or 'water pill'; insulin or oral diabetes medicine; a blood thinner--warfarin, Coumadin, Jantoven; or NSAIDs (nonsteroidal anti-inflammatory drugs)--aspirin, ibuprofen (Advil, Motrin), naproxen (Aleve), celecoxib, diclofenac, indomethacin, meloxicam, and others. This list is not complete and many other drugs may affect prednisone. This includes prescription and voah-uul-tfkhjhz medicines, vitamins, and herbal products. Not all possible drug interactions are listed here. Where can I get more information? Your pharmacist can provide more information about prednisone. Remember, keep this and all other medicines out of the reach of children, never share your medicines with others, and use this medication only for the indication prescribed. Every effort has been made to ensure that the information provided by [employer] is accurate, up-to-date, and complete, but no guarantee is made to that effect. Drug information contained herein may be time sensitive. [employer] information has been compiled for use by healthcare practitioners and consumers in the [place] and therefore [employer] does not warrant that uses outside of the [place] are appropriate, unless specifically indicated otherwise. [employer] drug information does not endorse drugs, diagnose patients or recommend therapy. [employer] drug information is an informational resource designed to assist licensed healthcare practitioners in caring for their patients and/or to serve consumers viewing this service as a supplement to, and not a substitute for, the expertise, skill, knowledge and judgment of healthcare practitioners. The absence of a warning for a given drug or drug combination in no way should be construed to indicate that the drug or drug combination is safe, effective or appropriate for any given patient. [employer] does not assume any responsibility for any aspect of healthcare administered with the aid of information [employer] provides. The information contained herein is not intended to cover all possible uses, directions, precautions, warnings, drug interactions, allergic reactions, or adverse effects. If you have questions about the drugs you are taking, check with your doctor, nurse or pharmacist. Copyright 7953-5010 [employer] Version: 10.. Revision Date: 06/10/2018. doxycycline (oral/injection) (DOX ricardo soler) Acticlate, Adoxa, Alodox, Avidoxy, Doryx, Mondoxyne NL, Monodox, Morgidox, Okebo, Oracea, Oraxyl, Targadox, Vibramycin What is the most important information I should know about doxycycline? You should not take this medicine if you are allergic to any tetracycline antibiotic. Children younger than 8 years old should use doxycycline only in cases of severe or life-threatening conditions. This medicine can cause permanent yellowing or graying of the teeth in children Using doxycycline during could harm the unborn baby or cause permanent tooth discoloration later in the baby's life. What is doxycycline? Doxycycline is a tetracycline antibiotic that Doxycycline is used to treat many different bacterial infections, such as acne, urinary tract infections, intestinal infections, eye infections, gonorrhea, chlamydia, periodontitis (gum disease), and others. Doxycycline is also used to treat blemishes, bumps, and acne-like lesions caused by rosacea. Doxycycline will not treat facial redness caused by rosacea. Some forms of doxycycline are used to prevent malaria, to treat anthrax, or to treat infections caused by mites, ticks, or lice. Doxycycline may also be used for purposes not listed in this medication guide. What should I discuss with my healthcare provider before taking doxycycline? You should not take this medicine if you are allergic to doxycycline or other tetracycline antibiotics such as demeclocycline, minocycline, tetracycline, or tigecycline. Tell your doctor if you have ever had: liver disease; kidney disease; asthma or sulfite allergy; increased pressure inside your skull; or if you also take isotretinoin, seizure medicine, or a blood thinner such as warfarin (Coumadin). If you are using doxycycline to treat gonorrhea, your doctor may test you to make sure you do not also have syphilis, another sexually transmitted disease. Taking this medicine during may affect tooth and bone development in the unborn baby. Taking doxycycline during the last half of can cause permanent tooth discoloration later in the baby's life. Tell your doctor if you are or if you become . Doxycycline can make control pills less effective. Ask your doctor about using a non-hormonal control (condom, diaphragm with spermicide) to prevent . Doxycycline can pass into breast milk and may affect bone and tooth development in a nursing . Do not breastfeed while you are taking doxycycline. Doxycycline can cause permanent yellowing or graying of the teeth in children younger than 8 years old. Children should use doxycycline only in cases of severe or life-threatening conditions such as anthrax or [place] spotted fever. The benefit of treating a serious condition may outweigh any risks to the child's tooth development. How should I take doxycycline? Follow all directions on your prescription label and read all medication guides or instruction sheets. Use the medicine exactly as directed. Take doxycycline with a full glass of water. Drink plenty of liquids while you are taking doxycycline. Read and carefully follow any Instructions for Use provided with your medicine. Ask your doctor or pharmacist if you do not understand these instructions. Most brands of doxycyline may be taken with food or milk if the medicine upsets your stomach. Different brands of doxycycline may have different instructions about taking them with or without food. Take Oracea on an empty stomach, at least 1 hour before or 2 hours after a meal. You may need to split a doxycycline tablet to get the correct dose. Follow your doctor's instructions. Swallow a delayed-release capsule or tablet whole. Do not crush, chew, break, or open it. Measure liquid medicine with the dosing syringe provided, or with a special dose-measuring spoon or medicine cup. If you do not have a dose-measuring device, ask your pharmacist for one. If you take doxycycline to prevent malaria: Start taking the medicine 1 or 2 days before entering an area where malaria is common. Continue taking the medicine every day during your stay and for at least 4 weeks after you leave the area. Doxycycline is usually given by injection only if you are unable to take the medicine by mouth. A healthcare provider will give you this injection as an infusion into a vein. Use this medicine for the full prescribed length of time, even if your symptoms quickly improve. Skipping doses can increase your risk of infection that is resistant to medication. Doxycycline will not treat a viral infection such as the flu or a common cold. Store at room temperature away from moisture, heat, and light. Throw away any unused medicine after the expiration date on the label has passed. Using doxycycline can cause damage to your kidneys. What happens if I miss a dose? Take the medicine as soon as you can, but skip the missed dose if it is almost time for your next dose. Do not take two doses at one time. What happens if I overdose? Seek emergency medical attention or call the Poison Help line at . What should I avoid while taking doxycycline? Do not take iron supplements, multivitamins, calcium supplements, antacids, or laxatives within 2 hours before or after taking doxycycline. Avoid taking any other antibiotics with doxycycline unless your doctor has told you to. Doxycycline could make you sunburn more easily. Avoid sunlight or tanning beds. Wear protective clothing and use sunscreen (SPF 30 or higher) when you are outdoors. Antibiotic medicines can cause diarrhea, which may be a sign of a new infection. If you have diarrhea that is watery or bloody, call your doctor. Do not use anti-diarrhea medicine unless your doctor tells you to. What are the possible side effects of doxycycline? Get emergency medical help if you have signs of an allergic reaction (hives, difficult breathing, swelling in your face or throat) or a severe skin reaction (fever, sore throat, burning in your eyes, skin pain, red or purple skin rash that spreads and causes blistering and peeling). Seek medical treatment if you have a serious drug reaction that can affect many parts of your body. Symptoms may include: skin rash, fever, swollen glands, flu-like symptoms, muscle aches, severe weakness, unusual bruising, or yellowing of your skin or eyes. This reaction may occur several weeks after you began using doxycycline. Call your doctor at once if you have: severe stomach pain, diarrhea that is watery or bloody; throat irritation, trouble swallowing; chest pain, irregular heart rhythm, feeling short of breath; little or no urination; low white blood cell counts--fever, chills, swollen glands, body aches, weakness, pale skin, easy bruising or bleeding; increased pressure inside the skull--severe headaches, ringing in your ears, dizziness, nausea, vision problems, pain behind your eyes; or signs of liver or pancreas problems--loss of appetite, upper stomach pain (that may spread to your back), tiredness, nausea or vomiting, fast heart rate, dark urine, jaundice (yellowing of the skin or eyes). Common side effects may include: nausea, vomiting, upset stomach, loss of appetite; mild diarrhea; skin rash or itching; darkened skin color; or vaginal itching or discharge. This is not a complete list of side effects and others may occur. Call your doctor for medical advice about side effects. You may report side effects to FDA at 4-263-HGM-3382. What other drugs will affect doxycycline? Sometimes it is not safe to use certain medications at the same time. Some drugs can affect your blood levels of other drugs you take, which may increase side effects or make the medications less effective. Other drugs may affect doxycycline, including prescription and nxxa-lqp-eniaduw medicines, vitamins, and herbal products. Tell your doctor about all your current medicines and any medicine you start or stop using. Where can I get more information? Your pharmacist can provide more information about doxycycline. Remember, keep this and all other medicines out of the reach of children, never share your medicines with others, and use this medication only for the indication prescribed. Every effort has been made to ensure that the information provided by [employer] ('[employer]') is accurate, up-to-date, and complete, but no guarantee is made to that effect. Drug information contained herein may be time sensitive. [employer] information has been compiled for use by healthcare practitioners and consumers in the [place] and therefore [employer] does not warrant that uses outside of the [place] are appropriate, unless specifically indicated otherwise. [employer] drug information does not endorse drugs, diagnose patients or recommend therapy. [employer] drug information is an informational resource designed to assist licensed healthcare practitioners in caring for their patients and/or to serve consumers viewing this service as a supplement to, and not a substitute for, the expertise, skill, knowledge and judgment of healthcare practitioners. The absence of a warning for a given drug or drug combination in no way should be construed to indicate that the drug or drug combination is safe, effective or appropriate for any given patient. [employer] does not assume any responsibility for any aspect of healthcare administered with the aid of information [employer] provides. The information contained herein is not intended to cover all possible uses, directions, precautions, warnings, drug interactions, allergic reactions, or adverse effects. If you have questions about the drugs you are taking, check with your doctor, nurse or pharmacist. Copyright 4171-3808 [employer] Version: .. Revision Date: 01/18/2020. Education Materials Insect, Spider, and Scorpion Bites and Stings The black (top) and brown recluse (bottom) are two poisonous spiders found in the [place]. Most insect bites are harmless and cause only minor swelling or itching. But if you re allergic to insects such as wasps or bees, a sting can cause a life-threatening allergic reaction. Some ticks can carry and transmit serious diseases. The venom (poison) from scorpions and certain spiders can also be deadly, although this is rare. Knowing when to seek emergency care could save your life. When to go to the emergency room (ER) Scorpion sting Bite from a black, red, or brown spider or brown recluse spider Severe pain or swelling at the site of bite A tick that is embedded in your skin and can not be easily removed at home Signs of an allergic reaction such as: oHives oSwelling of your eyes, lips, or the inside of your throat oTrouble breathing oDizziness or confusion What to expect in the ER If you re having trouble breathing, you ll be given oxygen through a mask. In case of severe breathing difficulty, you may have a tube inserted in your throat and be placed on a ventilator (breathing machine). If you are having a severe allergic reaction from a sting (called anaphylaxis), you may be given a shot of epinephrine. If it is known that you are allergic to bee or wasp stings, your doctor may give you a prescription for an epi-pen that you can keep with you at all times in case of a sting. You may receive antivenin (a substance that reverses the effects of poison) for some spider bites and scorpion stings. Because antivenin can sometimes cause other problems, your doctor will weigh the risks and benefits of this treatment. Steroids such as prednisone are often used to treat allergic reactions. In many cases, your doctor will also prescribe an antihistamine to help relieve itching. Easing symptoms of an insect bite or sting Try to remove a stinger you can see. Use your fingernail, a knife edge, or credit card to scrape against the skin. Do not squeeze or pull. Apply ice or a cold compress to reduce pain and swelling (keep a thin cloth between the cold source and the skin). 3936-8757 [employer]. [address] [place] [address], [place] [address]. All rights reserved. This information is not intended as a substitute for professional medical care. Always follow your healthcare professional's instructions. Additional Information VACCINATE! IT SAVES LIVES! Members of the community who have not yet received the COVID-19 vaccine and would like to receive it can visit one of [facility] vaccine clinics. There are many vaccine clinic locations within the [facility]. For locations and available times, please visit [email or web address] [email or web address] It is important to note that some COVID mobile vaccine clinics are held outdoors and may be canceled in rainy or stormy conditions. To learn more about pediatric vaccinations (ages 5-11), we invite you to visit the [facility] webpage. https://www.WorldVizs.org/pa ges/8375-Tgqke-Lgzdicyqvhj-Freque zzue-Ntaxm-Wbgqptohs.html To learn more about the COVID-19 vaccine, we invite you to visit the CDC website for a list of frequently asked questions. https://www.cdc.gov/coronavirus/2 019-ncov/vaccines/faq.html [facility] Patient Portal Access Instructions: Stay connected with your healthcare team and access your personal medical information anytime with the [facility] Patient Portal. If you would like a full copy of your medical records please contact the [facility] Medical Records Department Thursday through Thursday between 8a.m. and 4:30p.m. Please follow the directions below to access the portal: 1.Access the email account you provided upon registration to the hospital.2.Look for an invitation email from [facility].3.Open the email and access the invitation link: Accept Invitation to [facility]4.Fill in the required bettencourt to create your account. Sign into [email or web address] with your username and password that you created in the above steps to stay up to date. You can then view a summary of results, a summary of your visits, and the ability to download your summaries to your computer or send the information securely to a physician. Remember that your healthcare information is confidential, so carefully consider who you will allow to register on the [facility] Patient Portal for access to your information. You can also access the [facility] Patient Portal on the [employer] joseph. Simply click on Health Records under Health Data and then click on the [email or web address] logo. HOW TO SAFELY DISPOSE OF PRESCRIPTION MEDICATIONS Please use one of the following methods to safely dispose of your unused medications. 1.Use a drug disposal kit: the drug disposal pouch allows you to safely discard your old and unused drugs. Ask your nurse to give you one when you are discharged.2.Visit a local take-back location: Many local pharmacies and police departments have programs that collect old and unwanted prescription drugs. Call your local pharmacy or go to http://SupplyFrame.G.I. Java/1S4Oo9z to find one close to you.3.Make use of household items: Use cat litter or old coffee grounds to dispose medications if other options are not available. Mix your drugs with these household products, seal them in an airtight container and throw it into the garbage. Call [facility]: [phone] to be sure your drugs can be disposed of in this way. Some medicines may require a different approach.4.Never flush your medications down the toilet. IF YOU HAVE BEEN PRESCRIBED AN OPIOIDS FOR PAIN If you have been prescribed an opioid (such as hydrocodone, oxycodone or morphine), it is critical to understand the possible side effects and risks of opioid pain medications. Even when taken as directed, opioids can have several side effects including: Tolerance, meaning you might need to take more of a medication for the same pain relief. Nausea, vomiting and/or constipation. Sleepiness, dizziness, dry mouth, confusion, depression or itching. Physical dependence, meaning you have withdrawal symptoms when a medication is stopped ? this can develop within a few days. KNOW YOUR RESPONSIBILITIES It is important to know exactly how much and how often to take the opioid pain medications you are prescribed. Never take opioids in higher amounts or more often than prescribed. Do not combine opioids with alcohol or other drugs that cause drowsiness, such as benzodiazepines, also known as benzos, including diazepam and alprazolam, muscle relaxants or sleep aids. Never sell or share prescription opioids. This is illegal. Store opioids in a secure place and out of reach of others (including children, family, friends and visitors). The last page(s) of this document has been signed and retained as a CHART COPY Signatures Patient Education Materials Insect Bites and Stings Medication Leaflets acetaminophen and hydrocodone, prednisone, doxycycline (oral/injection) My discharge plan and instructions have been reviewed and explained to me and IGIANA MONICA A understand my current condition and have read and understand these discharge instructions. I have received a written copy of the plan/instructions. If I have questions, I am aware that I should contact my doctor. 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 This is also called acute otitis media (AOM). Sometimes it is caused by the common cold. This is because congestion can block the internal passage (eustachian tube) that drains fluid from the middle ear. When the middle ear fills with fluid, bacteria can grow there and cause an infection. Oral antibiotics are used to treat this illness, not ear drops. Symptoms usually start to improve within 1 to 2 days of treatment. Home care The following are general care guidelines: Finish all of the antibiotic medicine given, even though you may feel better after the first few days. You may use atue-axk-jblcaao medicine, such as acetaminophen or ibuprofen, to control pain and fever, unless something else was prescribed. If you have chronic liver or kidney disease or have ever had a stomach ulcer or gastrointestinal bleeding, talk with your healthcare provider before using these medicines. Do not give aspirin to anyone under 18 years of age who has a fever. It may cause severe illness or . Follow-up care Follow up with your healthcare provider, or as advised, in 2 weeks if all symptoms have not gotten better, or if hearing doesn't go back to normal within 1 month. When to seek medical advice Call your healthcare provider right away if any of these occur: Ear pain gets worse or does not improve after 3 days of treatment Unusual drowsiness or confusion Neck pain, stiff neck, or headache Fluid or blood draining from the ear canal Fever of 100.4 F (38 C) or as advised Seizure [id number] [employer]. [address] [place] [address], [place] [address]. All rights reserved. This information is not intended as a substitute for professional medical care. Always follow your healthcare professional's instructions. Follow Up Care 10/19/2021 18:16:34 With:CANDELARIO STEVENSON DO Address: [address] [place], [place] [id number]- When:2-4 days [facility] Emergency department Discharge summary 10-19-2021 Note Date & Type Note Facility 10-19-2021 Emergency department Discharge summary Discharge Instructions Thank you for allowing [facility] to assist you with your healthcare needs. The following is important discharge information regarding your hospital visit. Diagnosis from Today's Visit Acute left otitis media Ear pain What to Do Next Instructions from Your Care Team No qualifying data available. Post Acute Orders No qualifying data available. You Need to Schedule the Following Appointments Follow Up with CANDELARIO STEVENSON DO When Within 2-4 days Where: [facility] [place], [place] [id number]- Allergies Latex (itching) sulfamethoxazole Medications Please ask your primary doctor or pharmacist before taking any other medication not listed, including over the counter drugs, herbal medications, vitamins and or supplements as they may interact with your home medications. What How Much When Why Instructions Last Dose New acetaminophen-hydrocodone (Rawlings 325- 5 mg oral tablet) 1 tab(s) by mouth Every 6 hours as needed for as needed for pain Acute left otitis media Duration: 3 Days Printed Prescription New amoxicillin-clavulanate (amoxicillin-clavulanate 875 mg-125 mg oral tablet) 1 tab(s) by mouth Every 12 hours Acute left otitis media Duration: 7 Days Printed Prescription Changed predniSONE (predniSONE 20 mg oral tablet) 2 tab(s) by mouth Every day Acute left otitis media Duration: 5 Days Printed Prescription Changed predniSONE (prednisone 20mg tab (TAPER)) Taper 40-30-20-10 x 2 days each dose by mouth Every day Duration: 8 Days Unchanged acetaminophen-oxyCODONE (Percocet 325/ 5 oral tablet) 1 tab(s) by mouth Every 4 hours as needed for for pain Unchanged doxycycline (doxycycline hyclate 100 mg oral capsule) 1 cap by mouth Two (2) times a day Duration: 7 Days Unchanged LORazepam (Ativan) Please take this list to your next doctor s visit. Bring all medications you take, including over the counter medications, herbals and other supplements with you to your doctor s visit. Patients and families are reminded to discard old lists and to update any records with all medication providers or retail pharmacies. Medication Leaflets acetaminophen and hydrocodone (a SEET a MIN oh fen and kilo droe KOE done) Hycet, Lorcet, Rawlings, Verdrocet, Vicodin, Xodol, Zamicet What is the most important information I should know about acetaminophen and hydrocodone? MISUSE OF OPIOID MEDICINE CAN CAUSE ADDICTION, OVERDOSE, OR . Keep the medication in a place where others cannot get to it. Taking opioid medicine during may cause life-threatening withdrawal symptoms in the . Fatal side effects can occur if you use opioid medicine with alcohol, or with other drugs that cause drowsiness or slow your breathing. Stop taking this medicine and call your doctor right away if you have skin redness or a rash that spreads and causes blistering and peeling. What is acetaminophen and hydrocodone? Acetaminophen and hydrocodone is a combination medicine used to relieve moderate to severe pain. Acetaminophen and hydrocodone contains an opioid medicine, and may be habit-forming. Acetaminophen and hydrocodone may also be used for purposes not listed in this medication guide. What should I discuss with my healthcare provider before taking acetaminophen and hydrocodone? You should not use this medicine if you are allergic to acetaminophen or hydrocodone, or if you have: severe asthma or breathing problems; or a blockage in your stomach or intestines. Tell your doctor if you have ever had: breathing problems, sleep apnea (breathing stops during sleep); liver disease; a drug or alcohol addiction; kidney disease; a head injury or seizures; urination problems; or problems with your thyroid, pancreas, or gallbladder. If you use opioid medicine while you are , your baby could become dependent on the drug. This can cause life-threatening withdrawal symptoms in the baby after it is born. Babies born dependent on opioids may need medical treatment for several weeks. Ask a doctor before using opioid medicine if you are . Tell your doctor if you notice severe drowsiness or slow breathing in the nursing baby. How should I take acetaminophen and hydrocodone? Follow all directions on your prescription label. Never take this medicine in larger amounts, or for longer than prescribed. An overdose can damage your liver or cause . Tell your doctor if you feel an increased urge to use more of this medicine. Never share this medicine with another person, especially someone with a history of drug abuse or addiction. MISUSE CAN CAUSE ADDICTION, OVERDOSE, OR . Keep the medicine in a place where others cannot get to it. Selling or giving away this medicine is against the law. Measure liquid medicine carefully. Use the dosing syringe provided, or use a medicine dose-measuring device (not a kitchen spoon). If you need surgery or medical tests, tell the doctor ahead of time that you are using this medicine. You should not stop using this medicine suddenly. Follow your doctor's instructions about tapering your dose. Store at room temperature away from moisture and heat. Keep track of your medicine. You should be aware if anyone is using it improperly or without a prescription. Do not keep leftover opioid medication. Just one dose can cause in someone using this medicine accidentally or improperly. Ask your pharmacist where to locate a drug take-back disposal program. If there is no take-back program, flush the unused medicine down the toilet. What happens if I miss a dose? Since this medicine is used for pain, you are not likely to miss a dose. Skip any missed dose if it is almost time for your next dose. Do not use two doses at one time. What happens if I overdose? Seek emergency medical attention or call the Poison Help line at . An overdose of this medicine can be fatal, especially in a child or other person using the medicine without a prescription. Overdose symptoms may include nausea, vomiting, sweating, severe drowsiness, pinpoint pupils, slow breathing, or no breathing. Your doctor may recommend you get naloxone (a medicine to reverse an opioid overdose) and keep it with you at all times. A person caring for you can give the naloxone if you stop breathing or don't wake up. Your caregiver must still get emergency medical help and may need to perform CPR (cardiopulmonary resuscitation) on you while waiting for help to arrive. Anyone can buy naloxone from a pharmacy or local health department. Make sure any person caring for you knows where you keep naloxone and how to use it. What should I avoid while taking acetaminophen and hydrocodone? Avoid driving or operating machinery until you know how this medicine will affect you. Dizziness or drowsiness can cause falls, accidents, or severe injuries. Do not drink alcohol. Dangerous side effects or could occur. Ask a doctor or pharmacist before using any other medicine that may contain acetaminophen (sometimes abbreviated as APAP). Taking certain medications together can lead to a fatal overdose. What are the possible side effects of acetaminophen and hydrocodone? Get emergency medical help if you have signs of an allergic reaction: hives; difficulty breathing; swelling of your face, lips, tongue, or throat. Opioid medicine can slow or stop your breathing, and may occur. A person caring for you should give naloxone and/or seek emergency medical attention if you have slow breathing with long pauses, blue colored lips, or if you are hard to wake up. In rare cases, acetaminophen may cause a severe skin reaction that can be fatal. This could occur even if you have taken acetaminophen in the past and had no reaction. Stop taking this medicine and call your doctor right away if you have skin redness or a rash that spreads and causes blistering and peeling. Call your doctor at once if you have: noisy breathing, sighing, shallow breathing, breathing that stops; a light-headed feeling, like you might pass out; liver problems--nausea, upper stomach pain, tiredness, loss of appetite, dark urine, yomaira-colored stools, jaundice (yellowing of the skin or eyes); low cortisol levels-- nausea, vomiting, loss of appetite, dizziness, worsening tiredness or weakness; o high levels of serotonin in the body--agitation, hallucinations, fever, sweating, shivering, fast heart rate, muscle stiffness, twitching, loss of coordination, nausea, vomiting, diarrhea. Serious breathing problems may be more likely in older adults and in those who are debilitated or have wasting syndrome or chronic breathing disorders. Common side effects include: dizziness, drowsiness, feeling tired; nausea, vomiting, stomach pain; constipation; or headache. This is not a complete list of side effects and others may occur. Call your doctor for medical advice about side effects. You may report side effects to FDA at 6-953-XDW-2159. What other drugs will affect acetaminophen and hydrocodone? You may have breathing problems or withdrawal symptoms if you start or stop taking certain other medicines. Tell your doctor if you also use an antibiotic, antifungal medication, heart or blood pressure medication, seizure medication, or medicine to treat HIV or hepatitis C. Opioid medication can interact with many other drugs and cause dangerous side effects or . Be sure your doctor knows if you also use: cold or allergy medicines, bronchodilator asthma/COPD medication, or a diuretic ('water pill'); medicines for motion sickness, irritable bowel syndrome, or overactive bladder; other opioids--opioid pain medicine or prescription cough medicine; a sedative like Valium--diazepam, alprazolam, lorazepam, Xanax, Klonopin, Versed, and others; drugs that make you sleepy or slow your breathing--a sleeping pill, muscle relaxer, medicine to treat mood disorders or mental illness; drugs that affect serotonin levels in your body--a stimulant, or medicine for depression, Parkinson's disease, migraine headaches, serious infections, or nausea and vomiting. This list is not complete. Other drugs may affect acetaminophen and hydrocodone, including prescription and uuml-guq-tpxwhqe medicines, vitamins, and herbal products. Not all possible interactions are listed here. Where can I get more information? Your doctor or pharmacist can provide more information about acetaminophen and hydrocodone. Remember, keep this and all other medicines out of the reach of children, never share your medicines with others, and use this medication only for the indication prescribed. Every effort has been made to ensure that the information provided by [employer] ('[employer]') is accurate, up-to-date, and complete, but no guarantee is made to that effect. Drug information contained herein may be time sensitive. [employer] information has been compiled for use by healthcare practitioners and consumers in the [place] and therefore [employer] does not warrant that uses outside of the [place] are appropriate, unless specifically indicated otherwise. [employer] drug information does not endorse drugs, diagnose patients or recommend therapy. [employer] drug information is an informational resource designed to assist licensed healthcare practitioners in caring for their patients and/or to serve consumers viewing this service as a supplement to, and not a substitute for, the expertise, skill, knowledge and judgment of healthcare practitioners. The absence of a warning for a given drug or drug combination in no way should be construed to indicate that the drug or drug combination is safe, effective or appropriate for any given patient. [facility] does not assume any responsibility for any aspect of healthcare administered with the aid of information [facility] provides. The information contained herein is not intended to cover all possible uses, directions, precautions, warnings, drug interactions, allergic reactions, or adverse effects. If you have questions about the drugs you are taking, check with your doctor, nurse or pharmacist. Copyright 1693-4714 [employer]. Version: 16.03. Revision Date: 04/17/2020. prednisone (PRED ni sone) [place] What is the most important information I should know about prednisone? You should not use prednisone if you have a fungal infection anywhere in your body. You should not stop using prednisone suddenly. Follow your doctor's instructions about tapering your dose. What is prednisone? Prednisone is a steroid that reduces inflammation in the body, and also suppresses your immune system. Prednisone is used to treat many different conditions such as hormonal disorders, skin diseases, arthritis, lupus, psoriasis, allergic conditions, ulcerative colitis, Crohn's disease, eye diseases, lung diseases, asthma, tuberculosis, blood cell disorders, kidney disorders, leukemia, lymphoma, multiple sclerosis, organ transplant rejection, swelling from a brain tumor or injury. Prednisone may also be used for purposes not listed in this medication guide. What should I discuss with my healthcare provider before taking prednisone? You should not use prednisone if you are allergic to it, or if you have a fungal infection anywhere in your body. Steroid medication can weaken your immune system, making it easier for you to get an infection or worsening an infection you already have. Tell your doctor about any illness or infection you've had within the past several weeks. Tell your doctor if you have ever had: heart problems, high blood pressure, or a heart attack; glaucoma or cataracts; herpes infection of the eyes; past or present tuberculosis; a parasite infection that causes diarrhea (such as threadworms); any illness that causes diarrhea; underactive thyroid; diabetes; a stomach ulcer, diverticulitis; a colostomy or ileostomy; osteoporosis or low bone mineral density (steroid medication can increase your risk of bone loss); low levels of calcium or potassium in your blood; cirrhosis or other liver disease; mental illness or psychosis; or a muscle disorder such as myasthenia gravis. Long-term use of steroids may lead to bone loss (osteoporosis), especially if you smoke or drink alcohol, if you do not exercise, or if you do not get enough vitamin D or calcium in your diet. It is not known whether this medicine will harm an unborn baby. Tell your doctor if you are or plan to become . You should not breastfeed while using prednisone. How should I take prednisone? Follow all directions on your prescription label and read all medication guides or instruction sheets. Your doctor may occasionally change your dose. Use the medicine exactly as directed. Prednisone is taken daily or every other day, depending on the condition being treated. You may need to take the medicine at a certain time of day. Follow your doctor's instructions about when and how often to take this medicine. Take with food if prednisone upsets your stomach. Measure liquid medicine carefully. Use the dosing syringe provided, or use a medicine dose-measuring device (not a kitchen spoon). Swallow the delayed-release tablet whole and do not crush, chew, or break it. Prednisone can weaken (suppress) your immune system, and you may get an infection more easily. Call your doctor if you have signs of infection (fever, weakness, cold or flu symptoms, skin sores, diarrhea, frequent or recurring illness). If you have major surgery or a severe injury or infection, your prednisone dose needs may change. Make sure any doctor caring for you knows you are using this medicine. If you use this medicine long-term, you may need medical tests and vision exams. In case of emergency, wear or carry medical identification to let others know you use a steroid. You should not stop using prednisone suddenly. Follow your doctor's instructions about tapering your dose. Store at room temperature away from moisture, heat, and light. What happens if I miss a dose? Take the medicine as soon as you can, but skip the missed dose if it is almost time for your next dose. Do not take two doses at one time. What happens if I overdose? Seek emergency medical attention or call the Poison Help line at . High doses or long-term use of prednisone can lead to thinning skin, easy bruising, changes in body fat (especially in your face, neck, back, and waist), increased acne or facial hair, menstrual problems, impotence, or loss of interest in sex. What should I avoid while taking prednisone? Do not receive a 'live' vaccine while using prednisone. The vaccine may not work as well and may not fully protect you from disease. Live vaccines include measles, mumps, rubella (MMR), polio, rotavirus, typhoid, yellow fever, varicella (chickenpox), zoster (shingles), and nasal flu (influenza) vaccine. Avoid being near people who are sick or have infections. Call your doctor for preventive treatment if you are exposed to chickenpox or measles. These conditions can be serious or even fatal in people who are using steroid medicine. Avoid drinking alcohol. What are the possible side effects of prednisone? Get emergency medical help if you have signs of an allergic reaction: hives; difficult breathing; swelling of your face, lips, tongue, or throat. Call your doctor at once if you have: muscle pain or weakness; blurred vision, tunnel vision, eye pain, or seeing halos around lights; severe depression, changes in personality, unusual thoughts or behavior; bloody or tarry stools, coughing up blood or vomit that looks like coffee grounds; swelling, rapid weight gain, feeling short of breath; irregular heartbeats; severe headache, pounding in your neck or ears; decreased adrenal gland hormones--muscle weakness, tiredness, diarrhea, nausea, menstrual changes, skin discoloration, craving salty foods, and feeling light-headed; or low potassium level--leg cramps, constipation, irregular heartbeats, fluttering in your chest, increased thirst or urination, numbness or tingling, muscle weakness or limp feeling. Prednisone can affect growth in children. Tell your doctor if your child is not growing at a normal rate while using this medicine. Common side effects may include: weight gain (especially in your face or your upper back and torso); increased appetite; mood changes, trouble sleeping; changes in your menstrual periods; problems with memory or thought; muscle or joint pain; weakness; headache, dizziness, spinning sensation; nausea, bloating, loss of appetite; slow wound healing; or acne, increased sweating, thinning skin, bruising, pinpoint spots under your skin. This is not a complete list of side effects and others may occur. Call your doctor for medical advice about side effects. You may report side effects to FDA at 7-769-UTV-8056. What other drugs will affect prednisone? Sometimes it is not safe to use certain medications at the same time. Some drugs can affect your blood levels of other drugs you take, which may increase side effects or make the medications less effective. Tell your doctor about all your current medicines. Many drugs can affect prednisone, especially: bupropion; cyclosporine; digoxin; ketoconazole; an antibiotic; control pills or hormone replacement therapy; a diuretic or 'water pill'; insulin or oral diabetes medicine; a blood thinner--warfarin, Coumadin, Jantoven; or NSAIDs (nonsteroidal anti-inflammatory drugs)--aspirin, ibuprofen (Advil, Motrin), naproxen (Aleve), celecoxib, diclofenac, indomethacin, meloxicam, and others. This list is not complete and many other drugs may affect prednisone. This includes prescription and clsj-tyk-biniylq medicines, vitamins, and herbal products. Not all possible drug interactions are listed here. Where can I get more information? Your pharmacist can provide more information about prednisone. Remember, keep this and all other medicines out of the reach of children, never share your medicines with others, and use this medication only for the indication prescribed. Every effort has been made to ensure that the information provided by [employer] ('[employer]') is accurate, up-to-date, and complete, but no guarantee is made to that effect. Drug information contained herein may be time sensitive. [employer] information has been compiled for use by healthcare practitioners and consumers in the [place] and therefore [employer] does not warrant that uses outside of the [place] are appropriate, unless specifically indicated otherwise. [employer] drug information does not endorse drugs, diagnose patients or recommend therapy. [employer] drug information is an informational resource designed to assist licensed healthcare practitioners in caring for their patients and/or to serve consumers viewing this service as a supplement to, and not a substitute for, the expertise, skill, knowledge and judgment of healthcare practitioners. The absence of a warning for a given drug or drug combination in no way should be construed to indicate that the drug or drug combination is safe, effective or appropriate for any given patient. [employer] does not assume any responsibility for any aspect of healthcare administered with the aid of information [employer] provides. The information contained herein is not intended to cover all possible uses, directions, precautions, warnings, drug interactions, allergic reactions, or adverse effects. If you have questions about the drugs you are taking, check with your doctor, nurse or pharmacist. Copyright [id number] [employer] Version: 12.14. Revision Date: 06/10/2018. amoxicillin and clavulanate potassium (am OK i ASIYA in KLAV ue RAOUL ate rodolfo TAS ee um) Augmentin What is the most important information I should know about amoxicillin and clavulanate potassium? You should not use this medicine if you have severe kidney disease, if you have had liver problems or jaundice while taking amoxicillin and clavulanate potassium, or if you are allergic to any penicillin or cephalosporin antibiotic, such as Amoxil, Ceftin, Cefzil, Moxatag, Omnicef, and others. What is amoxicillin and clavulanate potassium? Amoxicillin is a penicillin antibiotic. Clavulanate potassium helps prevent certain bacteria from becoming resistant to amoxicillin. Amoxicillin and clavulanate potassium is a combination medicine used to treat many different infections caused by bacteria, such as sinusitis, pneumonia, ear infections, bronchitis, urinary tract infections, and infections of the skin. Amoxicillin and clavulanate potassium may also be used for purposes not listed in this medication guide. What should I discuss with my healthcare provider before taking amoxicillin and clavulanate potassium? You should not use this medicine if you are allergic to it, or if: you have severe kidney disease (or if you are on dialysis); you have had liver problems or jaundice while taking amoxicillin and clavulanate potassium; or you are allergic to any penicillin or cephalosporin antibiotic, such as Amoxil, Ceftin, Cefzil, Moxatag, Omnicef, and others. Tell your doctor if you have ever had: liver disease (hepatitis or jaundice); kidney disease; or mononucleosis. The liquid or chewable tablet may contain phenylalanine. Tell your doctor if you have phenylketonuria (PKU). Tell your doctor if you are or . Amoxicillin and clavulanate potassium can make control pills less effective. Ask your doctor about using a non-hormonal control (condom, diaphragm, cervical cap, or contraceptive sponge) to prevent . Do not give this medicine to a child without medical advice. How should I take amoxicillin and clavulanate potassium? Follow all directions on your prescription label and read all medication guides or instruction sheets. Use the medicine exactly as directed. Amoxicillin and clavulanate potassium may work best if you take it at the start of a meal. Take the medicine every 12 hours. Do not crush or chew the extended-release tablet. Swallow the pill whole, or break the pill in half and take both halves one at a time. Tell your doctor if you have trouble swallowing a whole or half pill. You must chew the chewable tablet before you swallow it. Shake the oral suspension (liquid) before you measure a dose. Use the dosing syringe provided, or use a medicine dose-measuring device (not a kitchen spoon). This medicine can affect the results of certain medical tests. Tell any doctor who treats you that you are using amoxicillin and clavulanate potassium. Use this medicine for the full prescribed length of time, even if your symptoms quickly improve. Skipping doses can increase your risk of infection that is resistant to medication. Amoxicillin and clavulanate potassium will not treat a viral infection such as the flu or a common cold. Store the tablets at room temperature away from moisture and heat. Store the liquid in the refrigerator. Throw away any unused liquid after 10 days. What happens if I miss a dose? Take the medicine as soon as you can, but skip the missed dose if it is almost time for your next dose. Do not take two doses at one time. What happens if I overdose? Seek emergency medical attention or call the Poison Help line at . Overdose can cause nausea, vomiting, stomach pain, diarrhea, skin rash, drowsiness, hyperactivity, and decreased urination. What should I avoid while taking amoxicillin and clavulanate potassium? Avoid taking this medicine together with or just after eating a high-fat meal. This will make it harder for your body to absorb the medication. Antibiotic medicines can cause diarrhea, which may be a sign of a new infection. If you have diarrhea that is watery or bloody, call your doctor before using anti-diarrhea medicine. What are the possible side effects of amoxicillin and clavulanate potassium? Get emergency medical help if you have signs of an allergic reaction (hives, difficult breathing, swelling in your face or throat) or a severe skin reaction (fever, sore throat, burning eyes, skin pain, red or purple skin rash with blistering and peeling). Call your doctor at once if you have: severe stomach pain, diarrhea that is watery or bloody (even if it occurs months after your last dose); pale or yellowed skin, dark colored urine, fever, confusion or weakness; loss of appetite, upper stomach pain; little or no urination; or easy bruising or bleeding. Common side effects may include: nausea, vomiting; diarrhea; rash, itching; vaginal itching or discharge; or diaper rash. This is not a complete list of side effects and others may occur. Call your doctor for medical advice about side effects. You may report side effects to FDA at 8-028-LWL-8104. What other drugs will affect amoxicillin and clavulanate potassium? Tell your doctor about all your other medicines, especially: allopurinol; probenecid; or a blood thinner--warfarin, Coumadin, Jantoven. This list is not complete. Other drugs may affect amoxicillin and clavulanate potassium, including prescription and wroa-iwh-cffglno medicines, vitamins, and herbal products. Not all possible drug interactions are listed here. Where can I get more information? Your pharmacist can provide more information about amoxicillin and clavulanate potassium. Remember, keep this and all other medicines out of the reach of children, never share your medicines with others, and use this medication only for the indication prescribed. Every effort has been made to ensure that the information provided by [employer]') is accurate, up-to-date, and complete, but no guarantee is made to that effect. Drug information contained herein may be time sensitive. [employer] information has been compiled for use by healthcare practitioners and consumers in the [place] and therefore [employer] does not warrant that uses outside of the [place] are appropriate, unless specifically indicated otherwise. [employer] drug information does not endorse drugs, diagnose patients or recommend therapy. [employer] drug information is an informational resource designed to assist licensed healthcare practitioners in caring for their patients and/or to serve consumers viewing this service as a supplement to, and not a substitute for, the expertise, skill, knowledge and judgment of healthcare practitioners. The absence of a warning for a given drug or drug combination in no way should be construed to indicate that the drug or drug combination is safe, effective or appropriate for any given patient. [employer] does not assume any responsibility for any aspect of healthcare administered with the aid of information [facility] provides. The information contained herein is not intended to cover all possible uses, directions, precautions, warnings, drug interactions, allergic reactions, or adverse effects. If you have questions about the drugs you are taking, check with your doctor, nurse or pharmacist. Copyright [id number] [employer] Version: 12.. Revision Date: 05/09/2019. [employer] Middle Ear Infection (Adult) You have an infection of the middle ear, the space behind the eardrum. This is also called acute otitis media (AOM). Sometimes it is caused by the common cold. This is because congestion can block the internal passage (eustachian tube) that drains fluid from the middle ear. When the middle ear fills with fluid, bacteria can grow there and cause an infection. Oral antibiotics are used to treat this illness, not ear drops. Symptoms usually start to improve within 1 to 2 days of treatment. Home care The following are general care guidelines: Finish all of the antibiotic medicine given, even though you may feel better after the first few days. You may use akns-khz-fwrcoqw medicine, such as acetaminophen or ibuprofen, to control pain and fever, unless something else was prescribed. If you have chronic liver or kidney disease or have ever had a stomach ulcer or gastrointestinal bleeding, talk with your healthcare provider before using these medicines. Do not give aspirin to anyone under 18 years of age who has a fever. It may cause severe illness or . Follow-up care Follow up with your healthcare provider, or as advised, in 2 weeks if all symptoms have not gotten better, or if hearing doesn't go back to normal within 1 month. When to seek medical advice Call your healthcare provider right away if any of these occur: Ear pain gets worse or does not improve after 3 days of treatment Unusual drowsiness or confusion Neck pain, stiff neck, or headache Fluid or blood draining from the ear canal Fever of 100.4 F (38 C) or as advised Seizure [id number] [employer]. [address] [place] [address]. All rights reserved. This information is not intended as a substitute for professional medical care. Always follow your healthcare professional's instructions. Additional Information VACCINATE! IT SAVES LIVES! Members of the community who have not yet received the COVID-19 vaccine and would like to receive it can visit one of [facility] vaccine clinics. There are many vaccine clinic locations within the [facility]. For locations and available times, please visit [email or web address]. It is important to note that some COVID mobile vaccine clinics are held outdoors and may be canceled in rainy or stormy conditions. To learn more about pediatric vaccinations (ages 5-11), we invite you to visit the [facility] webpage. [email or web address] To learn more about the COVID-19 vaccine, we invite you to visit the [facility] website for a list of frequently asked questions. [email or web address] [facility] Patient Portal Access Instructions: Stay connected with your healthcare team and access your personal medical information anytime with the [facility] Patient Portal. If you would like a full copy of your medical records please contact the [facility] Medical Records Department Thursday through Thursday between 8a.m. and 4:30p.m. Please follow the directions below to access the portal: 1.Access the email account you provided upon registration to the hospital.2.Look for an invitation email from [facility].3.Open the email and access the invitation link: Accept Invitation to [facility]4.Fill in the required bettencourt to create your account. Sign into [email or web address] with your username and password that you created in the above steps to stay up to date. You can then view a summary of results, a summary of your visits, and the ability to download your summaries to your computer or send the information securely to a physician. Remember that your healthcare information is confidential, so carefully consider who you will allow to register on the [facility] Patient Portal for access to your information. You can also access the [employer] Patient Portal on the Find That File. Simply click on Health Records under Health Data and then click on the [email or web address] logo. HOW TO SAFELY DISPOSE OF PRESCRIPTION MEDICATIONS Please use one of the following methods to safely dispose of your unused medications. 1.Use a drug disposal kit: the drug disposal pouch allows you to safely discard your old and unused drugs. Ask your nurse to give you one when you are discharged.2.Visit a local take-back location: Many local pharmacies and police departments have programs that collect old and unwanted prescription drugs. Call your local pharmacy or go to [email or web address] to find one close to you.3.Make use of household items: Use cat litter or old coffee grounds to dispose medications if other options are not available. Mix your drugs with these household products, seal them in an airtight container and throw it into the garbage. Call [facility]: [phone] to be sure your drugs can be disposed of in this way. Some medicines may require a different approach.4.Never flush your medications down the toilet. IF YOU HAVE BEEN PRESCRIBED AN OPIOIDS FOR PAIN If you have been prescribed an opioid (such as hydrocodone, oxycodone or morphine), it is critical to understand the possible side effects and risks of opioid pain medications. Even when taken as directed, opioids can have several side effects including: Tolerance, meaning you might need to take more of a medication for the same pain relief. Nausea, vomiting and/or constipation. Sleepiness, dizziness, dry mouth, confusion, depression or itching. Physical dependence, meaning you have withdrawal symptoms when a medication is stopped ? this can develop within a few days. KNOW YOUR RESPONSIBILITIES It is important to know exactly how much and how often to take the opioid pain medications you are prescribed. Never take opioids in higher amounts or more often than prescribed. Do not combine opioids with alcohol or other drugs that cause drowsiness, such as benzodiazepines, also known as benzos, including diazepam and alprazolam, muscle relaxants or sleep aids. Never sell or share prescription opioids. This is illegal. Store opioids in a secure place and out of reach of others (including children, family, friends and visitors). The last page(s) of this document has been signed and retained as a CHART COPY Signatures Patient Education Materials Otitis Media, Antibiotic Treatment (Adult) Medication Leaflets acetaminophen and hydrocodone, prednisone, amoxicillin and clavulanate potassium My discharge plan and instructions have been reviewed and explained to me and GIANA Wheat MONICA A understand my current condition and have read and understand these discharge instructions. I have received a written copy of the plan/instructions. If I have questions, I am aware that I should contact my doctor. 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: Date/Time: Relationship to Patient: ____ Witness Name/Signature: Date/Time: [facility] Evaluation + Plan note Note Date & Type Note Facility Evaluation + Plan note No data available for this section [facility] Instructions Note Date & Type Note Facility [facility] Work Phone: Family History No Family History Records Found Father Name Dates Details Family history of (7 99.9, R99) Status:Active Family history of cardiac di sorder(V17.49, Z82.49) Status:Active Summary Purpose Advance Directives No Advanced Directives Records Found Additional Source Comments Care Team (unrecognized sect ion and content) Care Team Personnel Name: Walker Worthington PT 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 Advanced Member Role: Other Name: CANDELARIO STEVENSON DO Member Role: Primary Care Physician Address: Address: [address] [place] [address] Care Team Related Persons Name: PEPE JAVIER Care Team Personnel Name: Walker Worthington 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 This clinical summary was aggregated from multiple sources. Caution should be exercised in using it in the provision of clinical care. This summary normalizes information from multiple sources, and as a consequence, information in this document may materially change the coding, format and clinical context of patient data. In addition, data may be omitted in some cases. CLINICAL DECISIONS SHOULD BE BASED ON THE PRIMARY CLINICAL RECORDS. [facility] [employer] [facility] provides no warranty or guarantee of the accuracy or completeness of information in this document.
== END | disposition home or self-care (01) ==
PROVIDERS: PCP Family Medicine; Referring Provider Orthopaedic Surgery; Visit Provider Orthopaedic Surgery
DX: M16.11 Unilateral primary osteoarthritis, right hip (principal)
CPT/HCPCS: 73700

== ENCOUNTER 2023-05-05 08:09 | Day surgery (SDC) | payer MEDICARE, MEDICAID, SELFPAY ==
[2023-04-30 10:59] LABS: Absolute Lymphocyte Count 2.97 X10^3/uL (0.83-4.51); Absolute Neutrophil Count 2.6 X10^3/uL (2.0-7.7); Basophil# 0.03 X10^3/uL; Basophil% 0.5 % (0-1); Eosinophil# 0.13 X10^3/uL; Eosinophils% 2.1 % (0-5); Hematocrit 39.3 % (37-47); Hemoglobin 13.1 g/dL (12.0-15.0); Lymphocyte # 2.97 X10^3/ul (0.83-4.51); Lymphocyte % 47.7 % (19-41); Mean Corp Hgb Conc 33.3 g/dL (32-36); Mean Corpuscular Hgb 29.9 pg (27.0-32.0); Mean Corpuscular Volume 89.7 fL (81-99); Mean Platelet Vol. 9.9 fl (6.2-12.0); Monocyte# 0.43 X10^3/uL; Monocyte% 6.9 % (0-10); NRBC Flagged by Analyzer 0 % (0-5); Neutrophil # 2.64 X10^3/uL (2.7-7.7); Neutrophil % 42.5 % (47-70); Platelet Count 291 K/mm3 (150-450); RBC Distribution Width CV 14.4 % (11.6-14.6); RBC Distribution Width SD 47.8 fl (35.1-43.9); Red Blood Count 4.38 M/mm3 (4.2-5.4); White Blood Count 6.2 K/mm3 (4.4-11.0)
[2023-04-30 11:15] LABS: Anion Gap 0 (5-15); BUN 23 mg/dL (7-18); BUN/Creat Ratio 28.1 RATIO (10-20); Calcium,Total 9.9 mg/dL (8.5-10.1); Chloride 109 mmol/L (98-107); Creatinine, Serum 0.82 mg/dL (0.55-1.02); EST Glomerular Filtration Rate 76 mL/min (>60); Est Glom Filt Rate - Afr Amer 92 mL/min (>60); Glucose 102 mg/dL (74-106); Sodium Level 138 mmol/L (136-145)
[2023-04-30 11:21] LABS: Partial Thromboplast Time 29.8 Seconds (24.1-36.2)
[2023-04-30 11:29] LABS: Magnesium 2.1 mg/dL (1.6-2.6)
[2023-04-30 11:50] LABS: Hemoglobin A1c 6.1 % (3.8-5.6)
[2023-05-01 08:11] LABS: Fructosamine 246 umol/L (0-285)
--- NOTE | 2023-05-04 09:11 | EKG12_ITS ---
Test Reason : PREOP Blood Pressure : / mmHG Vent. Rate : 085 BPM Atrial Rate : 085 BPM P-R Int : 144 ms QRS Dur : 076 ms QT Int : 360 ms P-R-T Axes : 075 036 023 degrees QTc Int : 428 ms Normal sinus rhythm Normal ECG Confirmed by LEIGHTON WAYNE, JUAN CARLOS ([id number]), writer editor STEPHAN GAGNON ([id number]) on 05/05/2023 6:25:38 AM Referred By: Mart Hernandez Confirmed By:JUAN CARLOS MANZANARES MD
[2023-05-05] VITALS (10 sets, daily range): BP systolic 92–155; BP diastolic 69–101; PULSE 51–116; RESP 11–18; TEMP 36.1–37.1; O2SAT 100; BMI 33.9
--- OUTSIDE RECORDS SUMMARY | 2023-05-05 08:21 | XMS RPT_ITS | CCD ---
Author Name Unknown Address [address] [place] [address] Organization [facility] Care Team Providers Care Customer Counter Representative Name Role Phone Daphne Will PA-C Unavailable Lynda Patel DC Unavailable Update Needed Unavailable Unavailable Dafne Sepulveda Unavailable Unavailable Violeta Gonzalez MD Unavailable Unavailable DR CANDELARIO STEVENSON DO A Primary Care Physician [facility] PT, Dafne Unavailable Unavailable ABRIL BLACKWELL MD [...] (5 sources) sulfacetamide Drug Allergy 09-23-19 12 [facility] Work Phone: (5 sources) venlafaxine Drug Allergy 08-03-19 16 Paresthesia, Abd Pain [facility] Work Phone: (5 sources) LATEX EXAM GLOVES drug allergy 09-23-19 12 [facility] Work Phone: (2 sources) Latex Allergy to substance itching [facility] (2 sources) Sulfamethoxazole; Translations: [sulfamethoxazole ] Drug Allergy [facility] Medications Current Medications Medication Drug Class(es) Dates [...] every six hours as needed for pain Indio 325- 5 mg oral tablet Dose = [...] tablet by mouth twice daily CYCLOBENZAPRINE HCL [id number] Dafne Herrera etodolac 400 mg oral tablet (10 sources) Nonsteroidal Anti-inflammatory Drug Start: 05-25-2015 End: 08-03-2015 take 1 tablet by mouth once daily for arthritis ETODOLAC 400 MG TABS One tablet by mouth daily for arthritis ETODOLAC [id number] Candelario Stevenson DO ibuprofen 200 mg oral tablet (10 sources) Nonsteroidal Anti-inflammatory Drug Start: 09-20-2014 End: 09-20-2014 MOTRIN IB 200 MG TABS Two tablets by mouth every 2-4 hours as needed for pain. IBUPROFEN [id number] Candelario Stevenson DO meloxicam 7.5 mg oral tablet (20 sources) Nonsteroidal Anti-inflammatory Drug Start: 12-25-2014 End: 03-26-2015 take 1 tablet by mouth once daily MELOXICAM 7.5 MG TABS One tablet by mouth daily MELOXICAM [id number] Candelario Stevenson DO Problems Active Problems Problem [...] (5 sources) Long-term drug therapy; Translations: [Other custodial (current) drug therapy] Onset: 05-25-2015 05-25-2015 Unclassified [...] Body temperature 98.78 [degF] ABRIL BLACKWELL MD [facility] 05-04-2022 17:47-0500 Diastolic Blood Pressure Non-Invasive 109 1 ABRIL BLACKWELL MD [facility] 05-04-2022 17:47-0500 Heart rate 84 /min ABRIL BLACKWELL MD [facility] 05-04-2022 17:47-0500 Respiratory rate 14 /min ABRIL BLACKWELL MD [facility] 05-04-2022 17:47-0500 Systolic Blood Pressure Non-Invasive 158 1 ABIRL BLACKWELL MD [facility] 10-19-2021 18:23-0400 Body temperature 99.68 [degF] ABRIL BLACKWELL MD [facility] 10-19-2021 18:23-0400 Diastolic blood pressure 86 mm[Hg] ABRIL BLACKWELL MD [facility] 10-19-2021 18:23-0400 Heart rate 102 /min ABRIL BLACKWELL MD [facility] 10-19-2021 18:23-0400 Respiratory rate 18 /min ABRIL BLACKWELL MD [facility] 10-19-2021 18:23-0400 Systolic blood pressure 178 mm[Hg] ABRIL BLACKWELL MD [facility] 11-26-2016 10:25-0400 BMI (Body Mass Index) 35.42 [...] Dossi DC [facility] Work Phone: 09-20-2014 11:31-6700 Height 160.02 cm Lynda Garciasi DC [facility] Work Phone: Encounters Encounter Date Encounter Type Care Provider Facility Start: 05-04-2022 End: 05-04-2022 Emergency department patient visit ABRIL BLACKWELL MD Facility:B Start: 05-04-2022 End: 05-04-2022 Emergency department patient visit ABRIL BLACKWELL MD [facility] Start: 10-19-2021 End: 10-19-2021 Emergency department patient visit ABRIL BLACKWELL MD Facility:B Start: 10-19-2021 End: 10-19-2021 Emergency department patient visit ABRIL BLACKWELL MD [facility] Procedures Date Procedure Procedure Detail Performing Clinician [...] Author Start: 03-02-2017 End: 03-02-2017 Appointment Appointment [facility] Work Phone: Start: 02-10-2017 End: 02-10-2017 Appointment Appointment [facility] Work Phone: Start: 02-04-2017 End: 02-04-2017 Colonoscopy flx dx w/collj spec when pfrmd Colonoscopy [facility] Work Phone: Start: 01-26-2017 End: [...] Therapy General Physical Therapy [facility], [address] [place] [address], [address] [facility] Work Phone: Start: 03-20-2016 End: 03-20-2016 Radex elbow complete minimum 3 views X-Ray, Elbow [facility] Work Phone: Start: 01-02-2016 End: 01-02-2016 Occupational Therapy General Occupational Therapy [facility], [address] [place] [address], [address] [facility] Work Phone: Start: 11-15-2015 End: 11-15-2015 Mri any jt upper extremity w/o contrast matrl MRI Joint Upper Extremity [facility] Work Phone: Start: 11-15-2015 End: 11-15-2015 Radex elbow complete minimum 3 views X-Ray, Elbow [facility] Work Phone: Start: 08-27-2015 End: 07-23-2016 Physical Therapy General Physical Therapy [facility], [address] [place], [address] [facility] Work Phone: Start: 08-23-2015 End: [...] Rheumatology Referral Rheumatology Referral Chasidy Rodriguez MD, [facility], [address], [place], [address] [facility] Work Phone: Start: 10-17-2014 End: 10-17-2014 Radiologic exam knee complete 4/more views X-Ray, Knee [facility] Work Phone: Start: 09-20-2014 End: 02-20-2015 Mammogram, screening Mammogram, Screening, both breasts [facility] Work Phone: Payers Date Payer Category Payer Private Health Insurance [id number] 1965 Unknown [id number] 1965 Unknown [id number] Social History Date Type Detail Facility Start: 04-22-2018 Tobacco smoking status Light tobacco smoker (finding) [facility] Sex Assigned At Sex [facility] NEGATED: Highlighted row - - [facility] Work Phone: Functional Status Date Assessment Result Facility 05-04-2022 Functional Status ID band on, Call device within reach, Bed in low position, Wheels locked, Safety level maintained [facility] 10-19-2021 Functional Status ID band on, Call device within reach, Bed in low position, Wheels locked [facility] NEGATED: Highlighted row Functional performance Functional status health issues are not documented Disease [facility] Work Phone: Mental Status Date Assessment Result Facility 05-04-2022 Mental Status Oriented x 4 [facility] 10-19-2021 Mental Status Oriented x 4 [facility] NEGATED: Highlighted row Cognitive function [Interpretation] Cognitive status health issues are not documented Disease [facility] Work Phone: Hospital Discharge instructions 05-04-2022 Note Date & Type Note Facility 05-04-2022 Hospital Discharg e instructions Patient Education 05/04/2022 18:12:10 Insect Bites and Stings Insect, Spider, and Scorpion Bites and Stings The black (top) and brown recluse (bottom) are two poisonous spiders found in the [facility]. Most insect bites are harmless and cause [...] between the cold source and the skin). 7476-1879 [employer]. [address] [place] [address]. All rights reserved. This information is not intended as a substitute for professional medical care. Always follow your healthcare professional's instructions. Follow Up Care 05/04/2022 17:41:43 With:CANDELARIO STEVENSON DO Address: [address] [place] [address]- When:3-5 days [facility] Emergency department Discharge summary 05-04-2022 Note Date & Type Note Facility 05-04-2022 Emergency department Discharge summary Discharge Instructions Thank you for allowing [facility] to assist you with your healthcare needs. [...] Within 3-5 days Where: [address] [place] [address]- Allergies Latex (itching) sulfamethoxazole Medications Please ask [...] Every day Duration: 8 Days Unchanged acetaminophen-hydrocodone (Indio 325- 5 mg oral tablet) 1 tab(s) [...] and kilo droasia KOE done) Hycet, Lorcet, Indio, Verdrocet, Vicodin, Xodol, Zamicet What is the [...] may report side effects to FDA at 1-069-JAR-3782. What other drugs will affect acetaminophen and [...] affect acetaminophen and hydrocodone, including prescription and xkph-gmy-bmzfclz medicines, vitamins, and herbal products. Not all [...] to ensure that the information provided by [employer]. ('[employer]') is accurate, up-to-date, and complete, but no guarantee is made to that effect. Drug information contained herein may be time sensitive. [employer] information has been compiled for use by healthcare practitioners and consumers in the [place] and therefore [employer] does not warrant that uses outside of the [place] are appropriate, unless specifically indicated otherwise. [employer] drug information does not endorse drugs, diagnose patients or recommend therapy. [employer] drug information is an informational resource designed [...] effective or appropriate for any given patient. [employer] does not assume any responsibility for any aspect of healthcare administered with the aid of information [employer] provides. The information contained herein is not intended to cover all possible uses, directions, precautions, warnings, drug interactions, allergic reactions, or adverse effects. If you have questions about the drugs you are taking, check with your doctor, nurse or pharmacist. Copyright 2109-6112 [employer]. Version: 16.03. Revision Date: 04/17/2020. prednisone (PRED [...] may report side effects to FDA at 1-704-AHQ-8609. What other drugs will affect prednisone? Sometimes [...] may affect prednisone. This includes prescription and nznq-krp-ezoarla medicines, vitamins, and herbal products. Not all [...] to ensure that the information provided by [employer]. ('[employer]') is accurate, up-to-date, and complete, but no guarantee is made to that effect. Drug information contained herein may be time sensitive. [employer] information has been compiled for use by healthcare practitioners and consumers in the [place] and therefore [employer] does not warrant that uses outside of the [place] are appropriate, unless specifically indicated otherwise. [employer] drug information does not endorse drugs, diagnose patients or recommend therapy. [employer] drug information is an informational resource designed [...] effective or appropriate for any given patient. [employer] does not assume any responsibility for any aspect of healthcare administered with the aid of information [employer] provides. The information contained herein is not intended to cover all possible uses, directions, precautions, warnings, drug interactions, allergic reactions, or adverse effects. If you have questions about the drugs you are taking, check with your doctor, nurse or pharmacist. Copyright 6723-3437 [employer]. Version: 10.. Revision Date: 06/10/2018. doxycycline (oral/injection) [...] bone and tooth development in a nursing infant. Do not breastfeed while you are taking doxycycline. Doxycycline can cause permanent yellowing or graying of the teeth in children younger than 8 years old. Children should use doxycycline only in cases of severe or life-threatening conditions such as anthrax or Prince spotted fever. The benefit of treating a [...] may report side effects to FDA at 2-869-CKC-4363. What other drugs will affect doxycycline? Sometimes it is not safe to use certain medications at the same time. Some drugs can affect your blood levels of other drugs you take, which may increase side effects or make the medications less effective. Other drugs may affect doxycycline, including prescription and fmky-ruf-gzkeaqj medicines, vitamins, and herbal products. Tell your [...] to ensure that the information provided by [employer]. ('[employer]') is accurate, up-to-date, and complete, but no guarantee is made to that effect. Drug information contained herein may be time sensitive. [employer] information has been compiled for use by healthcare practitioners and consumers in the [place] and therefore [employer] does not warrant that uses outside of the [place] are appropriate, unless specifically indicated otherwise. [employer] drug information does not endorse drugs, diagnose patients or recommend therapy. [employer] drug information is an informational resource designed [...] effective or appropriate for any given patient. [employer] does not assume any responsibility for any aspect of healthcare administered with the aid of information [employer] provides. The information contained herein is not intended to cover all possible uses, directions, precautions, warnings, drug interactions, allergic reactions, or adverse effects. If you have questions about the drugs you are taking, check with your doctor, nurse or pharmacist. Copyright 5790-2501 [employer]. Version: .. Revision Date: 01/18/2020. Education Materials [...] between the cold source and the skin). 9520-0351 [employer]. [address] [place] [address], [place] [address]. All rights reserved. This information is not intended as a substitute for professional medical care. Always follow your healthcare professional's instructions. Additional Information VACCINATE! IT SAVES LIVES! Members of the community who have not yet received the COVID-19 vaccine and would like to receive it can visit one of [facility] vaccine clinics. There are many vaccine clinic locations within the [facility]. For locations and available times, please visit [email or web address] It is important to note that some COVID mobile vaccine clinics are held outdoors and may be canceled in rainy or stormy conditions. To learn more about pediatric vaccinations (ages 5-11), we invite you to visit the [facility] webpage. https://www.[employer].org/pa ges/1711-Xijqq-Mtfmisxpdzw-Freque zwhh-Nedwl-Nxisetxci.html To learn more about the COVID-19 vaccine, we invite you to visit the CDC website for a list of frequently asked questions. https://www.cdc.gov/coronavirus/2 019-ncov/vaccines/faq.html [facility] Patient Portal Access Instructions: Stay connected with your healthcare team and access your personal medical information anytime with the [facility] Patient Portal. If you would like a full copy of your medical records please contact the [facility] Medical Records Department Thursday through Thursday between 8a.m. and 4:30p.m. Please follow the directions below to access the portal: 1.Access the email account you provided upon registration to the hospital.2.Look for an invitation email from [facility].3.Open the email and access the invitation link: Accept Invitation to [facility]4.Fill in the required bettencourt to create your account. Sign into [email or web address] with your username and password that you [...] you will allow to register on the [facility] Patient Portal for access to your information. You can also access the [facility] Patient Portal on the [employer] joseph. Simply click on Health Records under Health Data and then click on the vogogo logo. HOW TO SAFELY DISPOSE OF PRESCRIPTION [...] Call your local pharmacy or go to http://Axonify.Limitlesslane/0D8Vy4o to find one close to you.3.Make use of household items: Use cat litter or old coffee grounds to dispose medications if other options are not available. Mix your drugs with these household products, seal them in an airtight container and throw it into the garbage. Call [facility]: [phone] to be sure your drugs can be [...] aware that I should contact my doctor. Patient/Grain Shipper Signature: Date/Time: Relationship to Patient: ____ Witness Name/Signature: Date/Time: [facility] Discharge instructions 10-19-2021 Note Date & Type [...] the first few days. You may use mvef-vra-wrbsmnw medicine, such as acetaminophen or ibuprofen, to [...] F (38 C) or as advised Seizure 7712-3701 [employer]. [address] [place] [address], [place] [address]. All rights reserved. This information is not intended as a substitute for professional medical care. Always follow your healthcare professional's instructions. Follow Up Care 10/19/2021 18:16:34 With:CANDELARIO STEVENSON DO Address: [address] [place], [place] [id number]- When:2-4 days [facility] Emergency department Discharge summary 10-19-2021 Note Date & Type Note Facility 10-19-2021 Emergency department Discharge summary Discharge Instructions Thank you for allowing [facility] to assist you with your healthcare needs. [...] 2-4 days Where: [address] [place], [place] [address]- Allergies Latex (itching) sulfamethoxazole Medications Please ask your primary doctor or pharmacist before taking any other medication not listed, including over the counter drugs, herbal medications, vitamins and or supplements as they may interact with your home medications. What How Much When Why Instructions Last Dose New acetaminophen-hydrocodone (Indio 325- 5 mg oral tablet) 1 tab(s) [...] and kilo droe KOE done) Hycet, Lorcet, Indio, Verdrocet, Vicodin, Xodol, Zamicet What is the [...] may report side effects to FDA at 5-859-AFI-5050. What other drugs will affect acetaminophen and [...] affect acetaminophen and hydrocodone, including prescription and fzzi-sgb-fkocpik medicines, vitamins, and herbal products. Not all [...] to ensure that the information provided by [employer]. ('Bomber[employer]') is accurate, up-to-date, and complete, but no guarantee is made to that effect. Drug information contained herein may be time sensitive. [employer] information has been compiled for use by healthcare practitioners and consumers in the [place] and therefore [employer] does not warrant that uses outside of the [place] are appropriate, unless specifically indicated otherwise. [employer] drug information does not endorse drugs, diagnose patients or recommend therapy. [employer] drug information is an informational resource designed [...] effective or appropriate for any given patient. [facility] does not assume any responsibility for any aspect of healthcare administered with the aid of information [facility] provides. The information contained herein is not intended to cover all possible uses, directions, precautions, warnings, drug interactions, allergic reactions, or adverse effects. If you have questions about the drugs you are taking, check with your doctor, nurse or pharmacist. Copyright 1293-1053 [employer] [place] [employer]. Version: 16.03. Revision Date: 04/17/2020. prednisone (PRED [...] may report side effects to FDA at 4-385-LJP-7162. What other drugs will affect prednisone? Sometimes [...] may affect prednisone. This includes prescription and mvdk-olr-ggnjhqz medicines, vitamins, and herbal products. Not all [...] to ensure that the information provided by [employer]. ('[employer]') is accurate, up-to-date, and complete, but no guarantee is made to that effect. Drug information contained herein may be time sensitive. [employer] information has been compiled for use by healthcare practitioners and consumers in the [place] and therefore [employer] does not warrant that uses outside of the [place] are appropriate, unless specifically indicated otherwise. [employer] drug information does not endorse drugs, diagnose patients or recommend therapy. [employer] drug information is an informational resource designed [...] effective or appropriate for any given patient. [employer] does not assume any responsibility for any aspect of healthcare administered with the aid of information [employer] provides. The information contained herein is not intended to cover all possible uses, directions, precautions, warnings, drug interactions, allergic reactions, or adverse effects. If you have questions about the drugs you are taking, check with your doctor, nurse or pharmacist. Copyright 7509-6749 [employer]. Version: 12.14. Revision Date: 06/10/2018. amoxicillin and [...] may report side effects to FDA at 5-348-QMP-7813. What other drugs will affect amoxicillin and clavulanate potassium? Tell your doctor about all your other medicines, especially: allopurinol; probenecid; or a blood thinner--warfarin, Coumadin, Jantoven. This list is not complete. Other drugs may affect amoxicillin and clavulanate potassium, including prescription and kfao-ehe-sdmduaw medicines, vitamins, and herbal products. Not all [...] to ensure that the information provided by [employer]. ('[employer]') is accurate, up-to-date, and complete, but no guarantee is made to that effect. Drug information contained herein may be time sensitive. [employer] information has been compiled for use by healthcare practitioners and consumers in the [place] and therefore [employer] does not warrant that uses outside of the [place] are appropriate, unless specifically indicated otherwise. [employer] drug information does not endorse drugs, diagnose patients or recommend therapy. [employer] drug information is an informational resource designed [...] effective or appropriate for any given patient. [employer] does not assume any responsibility for any aspect of healthcare administered with the aid of information [facility] provides. The information contained herein is not intended to cover all possible uses, directions, precautions, warnings, drug interactions, allergic reactions, or adverse effects. If you have questions about the drugs you are taking, check with your doctor, nurse or pharmacist. Copyright 8136-6680 [employer]. Version: 12.. Revision Date: 05/09/2019. Education Materials [...] the first few days. You may use rtix-gyh-aqskrla medicine, such as acetaminophen or ibuprofen, to [...] F (38 C) or as advised Seizure 6580-3734 [employer]. [address] [place] [address]. All rights reserved. This information is not intended as a substitute for professional medical care. Always follow your healthcare professional's instructions. Additional Information VACCINATE! IT SAVES LIVES! Members of the community who have not yet received the COVID-19 vaccine and would like to receive it can visit one of [facility] vaccine clinics. There are many vaccine clinic locations within the [facility]. For locations and available times, please visit [email or web address]. It is important to note that some COVID mobile vaccine clinics are held outdoors and may be canceled in rainy or stormy conditions. To learn more about pediatric vaccinations (ages 5-11), we invite you to visit the [facility] webpage. https://www.[email or web address].org/pa ges/2894-Wdelo-Zuzvonmlhrc-Freque kshh-Zgrdu-Vlggbseww.html To learn more about the COVID-19 vaccine, we invite you to visit the [facility] website for a list of frequently asked questions. [email or web address] [email or web address] [facility] Patient Portal Access Instructions: Stay connected with your healthcare team and access your personal medical information anytime with the [facility] Patient Portal. If you would like a full copy of your medical records please contact the [facility] Medical Records Department Thursday through Thursday between 8a.m. and 4:30p.m. Please follow the directions below to access the portal: 1.Access the email account you provided upon registration to the hospital.2.Look for an invitation email from [facility].3.Open the email and access the invitation link: Accept Invitation to [facility]4.Fill in the required bettencourt to create your account. Sign into [email or web address] with your username and password that you [...] you will allow to register on the [facility] Patient Portal for access to your information. You can also access the [facility] Patient Portal on the CLIPPATE. Simply click on Health Records under Health Data and then click on the vogogo logo. HOW TO SAFELY DISPOSE OF PRESCRIPTION [...] Call your local pharmacy or go to [email or web address] to find one close to you.3.Make use of household items: Use cat litter or old coffee grounds to dispose medications if other options are not available. Mix your drugs with these household products, seal them in an airtight container and throw it into the garbage. Call [facility]: [phone] to be sure your drugs can be [...] aware that I should contact my doctor. Patient/Grain Shipper Signature: Date/Time: Relationship to Patient: ____ Witness Name/Signature: Date/Time: [facility] Evaluation + Plan note Note Date & Type Note Facility Evaluation + Plan note No data available for this section [facility] Instructions Note Date & Type Note Facility [facility] Work Phone: Family History No Family History Records Found Father Name Dates Details Family history of (7 99.9, R99) Status:Active Family history of cardiac di sorder(V17.49, Z82.49) Status:Active Summary Purpose Advance Directives No Advanced Directives Records Found Additional Source Comments Care Team (unrecognized sect ion and content) Care Team Personnel Name: Walker Worthington PT Position: P3 Scheduling - Customer Counter Representative Advanced Member Role: Other Name: CANDELARIO STEVENSON DO Member Role: Primary Care Physician Address: Address: [address] [place] [address] Care Team Related Persons Name: PEPE JAVIER Care Team Personnel Name: Walker Worthington PT Position: P3 Scheduling - Customer Counter Representative Advanced Member Role: Other Name: CANDELARIO STEVENSON DO Member Role: Primary Care Physician Address: Address: [address] [place] [address] Name: ABRIL BLACKWELL MD Position: ED Physician Member Role: ED Physician Address: Address: [address] [place] [address] Care Team Related Persons Name: PEPE JAVIER [...] BE BASED ON THE PRIMARY CLINICAL RECORDS. [facility] [employer] [facility]. provides no warranty or guarantee of the accuracy or completeness of information in this document.
[2023-05-05] MEDS: Lactated Ringers 1,000 ML 999 ML IV (09:16)
[2023-05-05] MEDS: Gabapentin 600 MG Tablet PO (09:17)
[2023-05-05] MEDS: Magnesium 1 GM over 15 mins IV (09:17)
[2023-05-05] MEDS: Acetaminophen 500 MG Tablet 1000 MG PO (09:17)
[2023-05-05] MEDS: Scopolamine 1mg/72hr Patch 1 PATCH TD (09:17)
[2023-05-05 09:52] LABS: Bedside Glucose 121 mg/dL (74-106)
--- NOTE | 2023-05-05 09:59 | HP.PCM_ITS ---
History and Physical Date of Admission: 05/05/23 [facility] [address] [place] [address] OFFICE VISIT Date of Service: 03/04/23 MR#: [id number] Acct: [id number] Name: CHANDAN MARROQUIN Rep #: [id number] : 1965 Provider: Dr. Mart Hernandez, Age/Sex: 57/F [place] [facility] Status: Signed Intake Vital Signs 10/30/2309:12 Height 5 ft 3 in Intake Visit Reasons: RIGHT HIP Chief Complaint: right hip Microphone Boom Operator Required: No Is patient in pain?: Yes (Right Hip/Groin ) Pain scale (1-10): 10 Allergies latex Allergy (Verified 03/04/23 11:09) ItchingSulfa (Sulfonamide Antibiotics) Allergy (Verified 03/04/23 11:09) Itching Medications acetaminophen 500 mg tablet 1,000 mg (2 x 500 mg) PO Q6H PRN pain #100 tabs 03/04/23 [Rx Confirmed 03/04/23] oxycodone-acetaminophen 10 mg-325 mg tablet 1 tab PO DAILY PRN 03/04/23 [History Confirmed 03/04/23] PFSH Medical History hysterectomy Surgical History Total knee replacement status Social History household members: children current occupational status: unemployed Smoking Status: Light Smoker (<10/day) alcohol intake: current alcohol intake frequency: 0-2 drinks per day Alcohol type: wine details: Socially smokes and drinks substance use type: marijuana caffeine: Yes Type: coffee what type of physical activity do you participate in: walking and weight training frequency: 1-2 times per week duration: 15-30 minutes/day HPI RIGHT HIP Details: This documentation accurately reflects the service provided and the decisions made by me, Dr. Mart Hernandez, 03/04/23 1102. Part of today?s visit was documented by [ ], acting as scribe. CHANDAN FARIA is a 57 year old F here today to discuss surgery in her right hip. States that the pain has become unbearable. Radiating into her right knee and groin. Does have increased back pain as well. Denies any numbness or tingling. Patient has had more injections with Dr. Cosby last one about three months ago and are no longer effective. States medical marijuana has also been ineffective for her pain. Prescribed Meloxicam as well as Percocet 10mg by dr basilio have also been ineffective. She completed physical therapy which was not helpful. She also tried healthcare architect. She had an injection about [address] Cosby which was helpful for a week. Ortho Exam General General: Yes no acute distress Neurologic: Yes alert and Yes oriented x3 Psychologic: Yes reasonable and appropriate Right Hip Skin: Yes CDI, No Ecchymosis, No soft tissue swelling and No Erythema internal rotation @90 degree flexion: 0 degrees external rotation @90 degree extension: 12 degrees Special Tests: No TTP Greater Troch HIP: groin pain with IR. good ankle strength. no significant edema. normal sensation to light palpation. no back pain. Head: Normocephalic Atraumatic Chest: symmetrical rise, non-labored breathing, no audible wheeze Abdomen: no guarding, non-rigid Supplemental Info Supplemental Info: 07/14/2022 x-ray right hip there has been progression of hip arthrosis joint space narrowing subchondral cystic changes 07/10/2022 MRI lumbar spine: Moderate right intraforaminal disc herniation L2-3.? L3-4 small left intraforaminal disc herniation.? L4-5? moderate left intraforaminal disc herniation.? Grade 1 spondylolisthesis L4-5 with mild central bulge.? Mild disc bulging L5-S1.? Multilevel degenerative disc disease, central stenosis, facet arthropathy? and neural foraminal encroachment as above. 06/10/2021 x-ray right hip: There is joint space narrowing subchondral cystic changes of the femoral head and femoral head spurring 11/26/2020 x-ray lumbar spine:Stable grade 1 anterolisthesis at L4/L5 , There is multilevel endplate spondylosis of the lumbar vertebrae. There is multi-level degenerative disc disease with multi-level disc space narrowing. 10/22/2020 x-ray lumbar spine:Mild diffuse lumbar spondylosis, most marked at L2-3 and L3-4. Coding Level of Care Code Off vis,est,level 4 Diagnoses Primary osteoarthritis of right hip M16.11 Osteoarthritis type: primary Assessment and Plan Assessment and Plan (1) Degenerative joint disease of right hip: Status: Acute Qualifiers: Osteoarthritis type: primary Qualified Code(s): M16.11 - Unilateral primary osteoarthritis, right hip Orders: Orders HIP, UNI W/ Pelvis 2-3 Views Today M16.11 - Unilateral primary osteoarthritis, right hip Medications: New acetaminophen Do NOT take in conjunction with Percocet. 1,000 mg (2 x 500 mg) PO Q6H PRN 100 tabs 0RF pain Plan Spoke with the patient about the anatomy of the hip and etiology of her pain. Spoke with her about her osteoarthritis and recommended a total hip arthr oplasty. Explained the surgery procedure, risks and benefits. She will be off work for about 2-3 months. She will have hip precautions after surgery, strictly for 6 weeks but mindful for 3 months. She will be on a blood thinner for 3 weeks post op and she will wear compression hose to decrease risk of blood clot. There is a risk of a leg length discrepancy. She will need a CT scan for the makoplas ty. Patient will have surgery as a same day surgery. She should not take NSAIDs within 7 days prior to surgery. Spoke with the patient about the benefits of not taking her percocet, to help with the recovery. Recommended she stop the pain medication for 6 weeks prior to surgery, as explained preoperative narcotics dramatically increase the pain postoperatively in these situations. Risks, benefits and alternatives of surgery reviewed including but not limited to bleeding, infection, nerve, foot drop, artery and/or tissue damage, fracture, VTE, leg length discrepancy, dislocation, need for hip precautions, continued pain and expected post-operative course. Follow up for 2 week post op or sooner if pain, swelling, numbness or associated symptoms, or concerns develop. All questions answered. Patient in agreement of plan. Plan Details Goals & Barriers: Goals Decrease pain Decrease spasm Improve workability Improve walking Target Due Date 11/20/22 Barriers Lumbar disc herniation Degenerative R hip 03/04/23 1319 <Electronically signed by Mart Hernandez DO> Date Mart Mary Dawn Signature: Date (if applicable) I have examined the patient and the H&P has been reviewed. There are no clinical changes since date of exam.
[2023-05-05] MEDS: Lactated Ringers 1,000 ML 125 ML IV (10:55)
[2023-05-05] MEDS: Cefazolin 2 GM in 0.9% Normal Saline (100mL Bag) 100 ML IV ×2 (10:55→16:12)
[2023-05-05] MEDS: Lactated Ringers 1,000 ML 100 ML IV (10:55)
--- NOTE | 2023-05-05 10:55 | HIP_PTH ---
PATHOLOGY RESULTS PATIENT: CHANDAN MARROQUIN ANTIONETTEACCT #:[id number] LOC: [facility] [place] U#:[id number] AGE/SX: 57/F ROOM: RE05/05/[address]: Dr. Mart Hernanedz DO : 1965 BED: DIS: 05/05/2023 SPEC #: [id number] RECD: 05/06/23 08:05 STATUS: BRITTANIE LOWE #: [id number] MULU: 05/05/23 10:[address]: Mart Hernandez DEPT: SURGICAL PATHOLOGY RECD BY: Alissa Regalado ENTERED: 05/06/23 08:06 SP TYPE: TOTAL HIP OTHR DR: Dr. Satinder Stevenson DO Tissues: Hip, NOS Procedures: Decalcification bone/plaque Surgery Specimen Level IV HEADER OPERATION: ERAS, right total hip replacement robotic arm assisted PRE-OP DIAGNOSIS: Degenerative joint disease of right hip TISSUE SUBMITTED: Femoral head MICROSCOPIC DIAGNOSIS Bone and tissue of right hip, total hip resection: Severe degenerative joint disease. AM:bipin 05/11/2023 MICROSCOPIC DESCRIPTION Slides are reviewed. GROSS DESCRIPTION Received is one container labeled with the patient's name and designated right femoral head. The specimen consists of a francis femoral head with portion of femoral neck. The femoral head measures 4.0 x 4.0 x 4.0 cm and the femoral neck measures up to 0.9 cm in length. The articular surface displays prominent osteophyte formation, eburnation and bone erosion. Also present in the specimen container are multiple irregular fragments of bone reamings measuring in aggregate 6.0 x 5.0 x 1.5 cm. Sales And Training Specialist sections are submitted in two cassettes after decalcification as follows: 1 - bone reamings, 2 - femoral head. / SJ:bipin 05/06/2023 TC:5 CPT: 01799, 34869
[2023-05-05] MEDS: dexAMETHasone 10 MG/ML Vial IV (11:05)
[2023-05-05] MEDS: TRANEXAMIC ACID 2,000 MG in 0.9% Normal Saline (100mL Bag) 100 ML 660 MG IV (11:05)
--- NOTE | 2023-05-05 12:50 | RAD_ITS ---
STUDY: X-RAY - PELVIS AND RIGHT HIP REASON FOR EXAM: Female, 57 years old. Post op in pacu -- in PACU TECHNIQUE: 2 views of the pelvis and hip. COMPARISON: Comparison is made with prior study dated March 04, 2023. FINDINGS: The patient is status post right total hip replacement. There is good alignment. Postoperative soft tissue changes. RAD/Hip Min 2 Views (Portable) IMPRESSION: Status post right total hip replacement. There is good alignment. Postoperative soft tissue changes. Electronically Signed: Tom Lehman MD at 13:32 EST ,
--- NOTE | 2023-05-05 12:52 | PCM.OP.BLANK ---
Operative Report Date of Procedure: 05/05/23 Preoperative diagnosis: Right hip DJD Postoperative diagnosis: Same Procedure: CT-guided Makoplasty assisted right total hip arthroplasty Implants: Sharron Accolade II stem size 2, 132 degree neck angle +4 head length 48 mm Trident II acetabular shell with 40 mm cancellous screw 32mm ceramic head, 10 degree Trident X3 polyethylene insert. Anesthesia: Spinal EBL: 175 cc Complications: None Condition: Stable to PACU Director Of Clinical Services Chace Bardales. My physician assistant plant control operator was a vital part of this case. He was important in appropriate retraction during the case, and protection of soft tissues during procedure. His intimate knowledge of the case and my steps aided in safe and expedient completion of the procedure as well as appropriate position of the extremity during the case. He was also vital in assisting with closure under my direct supervision. Indication for procedure: This is a 57-year-old female who has had long-standing arthrosis of the hip who has failed conservative treatment and wished to undergo total hip arthroplasty. We did discuss operative versus nonoperative intervention including risks of bleeding, infection , nerve artery tissue damage, need for further surgery, fracture, leg length discrepancy dislocation blood clot and need for postoperative physical therapy and postoperative expectations. An informed consent was signed. Procedure: Patient was met in the preoperative holding area once again the operative extremity was identified by both patient and physician and was marked. Patient was met by anesthesia . Anesthesia was started. patient was then positioned in the lateral decubitus position on a well-padded pegboard with an axillary roll. All bony prominences were checked and padded. The patient was prepped and draped in the usual sterile fashion. A timeout was called to ensure the proper patient procedure and extremity were being contemplated. Anatomic landmarks were palpated and marked for a standard posterior lateral approach. Prior to this the ASIS was palpated and 3 fingerbreadths proximal to this 3 pins were placed at a 45 degree angle into the iliac crest with good purchase, stab incisions were made with a 15 blade into the skin prior to placement. The Makoplasty array was then secured. A 10 blade scalpel was used to make a posterior incision through the skin and subcutaneous tissue. retractors were used and electrocautery was used to maintain meticulous hemostasis and dissect full-thickness flaps until the gluteal fascia was reached. The gluteal fascia was incised in line with the gluteal fibers. The bursal tissue was then freed from the underside and a Charnley retractor was placed. The femoral trochanteric checkpoint was placed and leg length was assessed using the trochanteric checkpoint and an EKG lead that was placed on the knee prior to prepping the leg .the fat pad was then elevated off of the external rotators with electrocautery and the external rotators were dissected off of the greater trochanter including the piriformis and were tagged with #1 Ethibond for later repair. The joint capsule opened with posterior trapdoor technique. The hip was surgically dislocated. The measurement on the preoperative CT from the top of the lesser trochanter to the femoral neck cut was marked Hohmann was placed around the lesser trochanter. A neck cutting guide was used to jenna the neck with a Bovie and an oscillating saw was used complete the femoral neck cut. The femoral head was then removed and sized. We then turned our attention to the acetabulum. A Bovie was used to make a perforation in the anterior joint capsule and a Ying retractor was placed this was repeated in the 6 o'clock position and a wide wily was placed there. With a long handled knife the labral and pulvinar tissue were removed. We then registered the acetabulum with the pointing array and confirmed our landmarks. Once the socket was thoroughly prepared and labral tissue and pulvinar was removed we single reamed with the robotic arm. We then used the robotic arm to position the acetabular implant and impacted it into place under robotic guidance. We then proceeded to place a posterior superior screw by drilling first measuring and inserting the screw. We then inserted a trial liner. And turned our attention back to the femur at this point a femoral elevator was used. As well as a pointed wide Hohmann around the lesser trochanter and a Hohmann to help retract the gluteus medius. A box chisel was used to remove excess lateral neck followed by a canal finder and a lateralizing reamer. This was followed by sequential broaches. Attention was made of the version within the canal based on preoperative templating. Once the final broach was seated we then trialed reduced the hip it was determined that a 132 degree neck angle with a +4 head neck length was the appropriate size. We then checked stability with shuck testing as well as flexion and internal rotation. then proceeded with hip extension and checked leg lengths at the knees and heels as well as with the trochanteric checkpoint and knee EKG lead. At this point trials were removed. A liner was inserted to the cup. The femoral stem was inserted. We re-trialed and then proceeded to impact the femoral head onto the Kenan taper. We then surgically reduce the hip check stability again and leg lengths and were satisfied. Betadine rinse was allowed to sit for 5 minutes while everyone changed their gloves. Thorough irrigation was performed. Followed by closure of the external rotators with #2 FiberWire followed by closure of gluteal fascia with #1 Ethibond. 0 Vicryl fat stitches and 2-0 Vicryl subcutaneous stitches and francesca in the skin. Francesca were placed in the skin pin sites over the iliac crest and dressed with a Mepilex dressing. The main incision was dressed with a Mepilex ag dressing and an abduction pillow was placed. Patient tolerated the procedure well there was no intraoperative complications all counts were correct and the patient was brought back to the PACU in stable condition
--- NOTE | 2023-05-05 12:54 | EX.PCM.DISCH ---
Discharge Instructions Diet Discharge Diet: No restrictions Dressing / Incision Call your doctor if you observe: Shortness of breath and Chest pain Additional Dressing/Incision Instructions:: Do not shower 72hrs. Begin daily showering warm water antibacterial soap postop day #3( 72hrs Post-operatively) and then daily. Leave the dressing on for 72 hours postoperatively then may remove prior to first shower and change dressing daily after this until no drainage for 2 consecutive days then may leave open to air. Follow hip precautions that were reviewed in hospital. Wear compression stockings, may remove at night. Start physical therapy as directed in hospital. Follow prescriptions instructions do not take any other pain medication or differ dosing without consulting your physician. Do not take oral NSAIDs until blood thinner has been completed , then may begin the day after completion if needed . Call Dr. Hernandez's office with any concerns. Follow Up Care Please Follow Up With: Mart Hernandez DO When: 2 weeks Test Results: Test results from this visit will be discussed in further detail at your follow-up appointment, if applicable. Discharge Plan Admission Primary Reason for Your Visit: Right total hip arthroplasty Attending Provider: Mart Hernandez Primary Care Provider: Satinder Stevenson Discharge Orders/Prescriptions Prescriptions: New acetaminophen [acetaminophen] 500 mg tablet 1,000 mg PO Q6H PRN Qty: 100 0RF cephalexin [cephalexin] 500 mg capsule 1,000 mg PO Q8 Qty: 4 0RF Rx Instructions: take 2 tabs at 9:00 pm and 2 tabs after 5 am when you wake up Eliquis 2.5 mg tablet 2.5 mg PO BID Qty: 42 0RF Rx Instructions: Begin morning after surgery oxycodone 5 mg tablet 5 - 10 mg PO Q4H PRN (Reason: pain) 7 Days Qty: 60 0RF Continued lorazepam 1 mg tablet 1 mg PO PRN PRN (Reason: anxiety) Patient Comments: take 1 tablet by mouth daily if needed for anxiety multivitamin [Daily Multi-Vitamin] Tablet 1 tab PO DAILY cholecalciferol (vitamin D3) [Vitamin D3] 25 mcg (1,000 unit) capsule 25 mcg PO DAILY omega-3 fatty acids Capsule 500 mg PO DAILY ascorbic acid (vitamin C) [C-500] 500 mg tablet 500 mg PO DAILY Discontinued oxycodone-acetaminophen 10-325 mg tablet 1 tab PO DAILY PRN (Reason: pain) Patient Comments: take 1 tablet by mouth once daily if needed acetaminophen 500 mg tablet 1,000 mg PO Q6H PRN (Reason: pain) Qty: 100 0RF Rx Instructions: Do NOT take in conjunction with Percocet. Referrals / Follow Up: Satinder Stevenson DO [Primary Care Provider] - Disposition Disposition (needs filled in before D/C Order can be placed): Home, Self Care
[2023-05-05] MEDS: Ketorolac 30 MG/ML Syringe IV (14:01)
== END 2023-05-05 17:43 | disposition home or self-care (01) ==
LOC: SDC 08:10 → AC 08:12
PROVIDERS: Anesthesiology; PCP Family Medicine; Referring Provider Orthopaedic Surgery; Visit Provider Orthopaedic Surgery
PROC: 8E0Y0CZ Robotic Assisted Procedure of Lower Extremity, Open Approach (ICD-10-PCS; CPT 27130; principal; 2023-05-05 10:25)
DX: M16.11 Unilateral primary osteoarthritis, right hip (principal); F17.200 Nicotine dependence, unspecified, uncomplicated; F12.90 Cannabis use, unspecified, uncomplicated; R10.30 Lower abdominal pain, unspecified; Z79.899 Other long term (current) drug therapy
CPT/HCPCS: 27130; S2900; 01214; 36415; 73502; 80048; 82962; 82985; 83036; 83735; 85025; 85610; 85730; 86850; 86900; 86901; 87081; 88305; 88311; 93005; 97162; C1776; J7120; J2405; J3475

== ENCOUNTER 2023-06-04 16:30 | Outpatient (RCR) | payer MEDICARE, MEDICAID, SELFPAY ==
--- NOTE | 2023-05-08 15:51 | HP.PTEVAL_ITS ---
Patient's Visit Information Visit Information Visit Information: CHANDAN FARIA is a 57 year old F referred to Physical Therapy by Dr. Mart Hernandez DO with a diagnosis of R SALTY 05/05/23. Date of Evaluation: 05/08/23 Physical Therapist: Andrew Koo, PT, ATC Visit Plan Frequency: 2-3x /Week Duration: 4-6 Weeks Plan: R hip stretching and strengthening, mobs, core strengthening, balance and proprio, stair negotiation, gait training, and Nustep Subjective Subjective: DOS: 05/05/23. Pt reports she had R hip pain for greater than a year prior to having the surgery. Pt reports she is glad to have had the surgery at this time. Pt notes she had severe pain in her hip and would experience pain in her back prior to having the surgery. Pt reports no difficulty with sleep at this time as long as she is taking pain meds. Pt reports she has stairs at work she is going to have to negotiate when she returns, but has not attempted any at this time. Pt reports she is limited with all house chore activities at this time secondary to pain. Pt denies any tingling or numbness in R LE at this time. Pt reports she is in no pain at this time, but reports she is 10/10 pain level when her pain meds wear off. Pt reports she has been performing her HEP 2 times a day since having her surgery. Pain R hip pain: Pain Intensity (Out of 10): 0 Pain Intensity Range: 10 Objective Objective: Neuro: B LE sensation is WNL to light touch. B achilles reflex 2/3 Incision: Incision is normal in appearance. Still covered by bandage. ROM: L hip flex= 70, ext= 35 degrees; R hip flex= 60, ext= 0 degrees MMT: L hip flex= 28, ext= 36 #F; R hip flex= 17, ext= 24 #F; TU.0 sec Gait: Pt is able to ambulate 340 feet until needing a rest secondary to fatigue Balance/Special Test Scores Lower Extremity Functional Score: 17 Goals Goal 1:: Decrease R hip pain x 50% to aid with sleep Goal Time Frame: 4-6 Weeks Goal 2:: Increase R hip flex and ext ROM x 20 degrees to aid with IADL's Goal Time Frame: 4-6 Weeks Goal 3:: Increase R hip strength x 10 #F to aid with stair negotiation Goal Time Frame: 4-6 Weeks Goal 4:: I with HEP Goal Time Frame: 4-6 Weeks Rehabilitation Potential Physical Therapy Diagnosis: Pt reports R hip pain, weakness, and limited ROM secondary to R SALTY Rehabilitation Potential: Good Anticipated Interventions Patient/Client Instruction: Educate patient on: Condition and Plan of Care For the Purpose of:: To improve self management Therapeutic Exercise to Include: Strength training, Endurance training, Balance training, Flexibilty training, Gait and locomotor training, Active ROM and Dynamic Lumbar Stabilization For the Purpose of:: To decrease pain, To increase ROM and To improve muscle performance and motor function Cryotherapy (ice pack, ice massage): Yes For the Purpose of:: To decrease pain Text: Thank you for the opportunity to evaluate your patient. For Medicare and Medicare HMO plans, please review the plan of care and approve it. It will need to be FAXED BACK to us at [phone] for Medicare purposes. For Medicare only, by signing this I certify the plan of care. Please let me know if there are questions or concerns regarding this plan of care. Physician Signat ure: Date:
--- NOTE | 2023-06-04 17:11 | HP.PTDCSUM ---
Discharge Summary D/C summary: It has been my pleasure to treat CHANDAN GARG FARIA referred by Dr. Mart Hernandez DO, with the diagnosis of R SALTY 05/05/23 for a total of 7 visit(s). Discharge Date: Please see the following information for a summary of their discharge status. Subjective Subjective: Pt reports no pain today. Pt reports she is ready for discharge Pain R hip pain: Pain Intensity (Out of 10): 0 Overall Improvement % Improvement: 50 Objective Objective/Function: R hip pain ranges from 0-10/10 R hip MMT: flex= 10, ext= 24 #F R hip ROM: flex= 60, ext= 10 degrees TUG 13.5 sec Pt is I with [facility] Goals Goal 1:: Decrease R hip pain x 50% to aid with sleep Goal Progress: Progressing Goal 2:: Increase R hip flex and ext ROM x 20 degrees to aid with IADL's Goal Progress: Progressing Goal 3:: Increase R hip strength x 10 #F to aid with stair negotiation Goal Progress: Progressing Goal 4:: I with [facility] Goal Progress: Goal Met Plan Plan: Discharge to [facility] D/C Information d/c sentence: If there are questions or concerns regarding this patient's physical therapy, please feel free to call me at [phone]. Thank you for the referral of this patient. Sincerely, Andrew Koo, PT, ATC Balance/Gait/Functional tests Balance/Special Test Scores Lower Extremity Functional Score: 55 Improvement % Improvement: 50
== END 2023-06-04 19:00 | disposition home or self-care (01) ==
LOC: PT 16:30
PROVIDERS: PCP Family Medicine; Visit Provider Orthopaedic Surgery
DX: Z96.641 Presence of right artificial hip joint (principal)
CPT/HCPCS: 97110; 97161

== ENCOUNTER 2023-06-26 14:51 | Outpatient (CLI) | payer MEDICARE, MEDICAID, SELFPAY ==
[2023-06-26 09:43] LABS: Cholesterol 240 mg/dL (200); High Density Lipoprotein 60 mg/dL; Triglycerides 96 mg/dL; Very Low Density Lipoprotein 19 mg/dL (5-40)
--- NOTE | 2023-06-26 14:51 | BI_ITS ---
MAMMOGRAPHY - BILATERAL SCREENING REASON FOR EXAM: Female, 57 years old. Routine annual screening examination. PERTINENT HISTORY: Non-contributory. TECHNIQUE: Digital bilateral breast isabella (3D mammographic acquisition) in the CC and MLO projections. 2-D mediolateral oblique (MLO) and craniocaudad (CC) views of both breasts were obtained. CAD: Full Field Digital Mammography with Computer Added Detection was performed. COMPARISON: Comparison is made with prior study dated November 29, 2021 and February 01, 2020. FINDINGS: Breast Composition: There are scattered areas of fibroglandular density. There are no dominant masses or suspicious calcifications. Stable small benign-appearing bilateral axillary lymph nodes. No other significant abnormalities are identified. There has been no significant change since the prior study. BI/SCRN MAMM (CAD)W/ISABELLA BILAT IMPRESSION: Stable bilateral screening mammogram. Yearly follow-up mammogram recommended. (A) ASSESSMENT CATEGORY: BIRADS Category 2: Benign. A letter regarding these results will be sent to the patient by the facility within 30 days. Approximately 10% of breast cancers are not detected by mammography. A normal mammogram should not delay biopsy of a clinically suspicious abnormality. [id number] Electronically Signed: Tom Lehman MD at 8:11 EDT ,
== END 2023-06-26 23:59 | disposition home or self-care (01) ==
LOC: OPBI 14:51
PROVIDERS: PCP Family Medicine; Referring Provider Family Medicine; Visit Provider Family Medicine
DX: Z12.31 Encounter for screening mammogram for malignant neoplasm of breast (principal)
CPT/HCPCS: 36415; 77063; 77067; 80061

== ENCOUNTER → 2025-01-19 | Outpatient (CLI) | payer MEDICARE, MEDICAID, SELFPAY ==
--- NOTE | 2025-01-19 11:58 | BI_ITS ---
EXAM: SCRN MAMM (CAD)W/ISABELLA BILAT DATE: 01/19/2025 CLINICAL HISTORY: F, Age 59 y/o , SCREENING No family history. TECHNIQUE: Procedure Code: [id number] Modality: MG Procedure: SCRN MAMM (CAD)W/ISABELLA BILAT COMPARISON: Prior exam(s) dated June 26, 2023.. FINDINGS: TISSUE DENSITY: There are scattered areas of fibroglandular density. Bilateral Breast Mammographic Findings: No significant masses, calcifications or other abnormalities are identified. Stable bilateral benign-appearing axillary lymph nodes. No suspicious masses, areas of developing architectural distortion, or suspicious calcifications. There has been no significant interval change. BI/SCRN MAMM (CAD)W/ISABELLA BILAT IMPRESSION: Stable bilateral screening mammogram. OVERALL FINAL ASSESSMENT BI-RADS 2: BENIGN RECOMMENDATION: Routine annual follow-up in 1 Year Additional Recommendation none A letter with findings and recommendations will be mailed to the patient. Reading Location: [facility]
[2025-01-19 13:05] LABS: Hematocrit 39.5 % (37-47); Hemoglobin 12.8 g/dL (12.0-15.0); Immature Granulocytes Count 0.030 X10^3/uL (0.0-0.0); Mean Corp Hgb Conc 32.4 g/dL (32-36); Mean Corpuscular Volume 92.3 fL (81-99); Mean Platelet Vol. 9.7 fl (6.2-12.0); NRBC Flagged by Analyzer 0 % (0-5); Platelet Count 280 K/mm3 (150-450); RBC Distribution Width CV 14.2 % (11.6-14.6); RBC Distribution Width SD 47.5 fl (35.1-43.9); Red Blood Count 4.28 M/mm3 (4.2-5.4); White Blood Count 6.2 K/mm3 (4.4-11.0)
[2025-01-19 14:03] LABS: AST(SGOT) 24 U/L (<=31); Alanine Aminotransfer ALT/SGPT 15 U/L (<=34); Albumin, Serum 4.3 g/dL (3.4-4.8); Alkaline Phosphatase 85 U/L (35-104); Anion Gap 9 (5-15); BUN 11 mg/dL (4-19); BUN/Creat Ratio 11.5 RATIO (10-20); Calcium,Total 9.6 mg/dL (7.6-11.0); Carbon Dioxide 26.6 mmol/L (21.0-32.0); Chloride 105 mmol/L (98-108); Cholesterol 230 mg/dL (<=200); Globulin 3.0 g/dL (2.2-4.2); Glucose 102 mg/dL (70-99); Low Density Lipoprotein Calc. 150 mg/dL; Potassium 4.1 mmol/L (3.3-5.1); Triglycerides 96 mg/dL; Very Low Density Lipoprotein 19 mg/dL (5-40); Vitamin B12 519 pg/mL (180-914); Vitamin D,25 Hydroxy 47.6 ng/mL (30-100); cholesterol:hdl ratio screen 3.63
== END | disposition home or self-care (01) ==
PROVIDERS: PCP Family Medicine; Referring Provider Family Medicine; Visit Provider Family Medicine
DX: Z00.00 Encounter for general adult medical examination without abnormal findings (principal); Z12.31 Encounter for screening mammogram for malignant neoplasm of breast; R53.83 Other fatigue
CPT/HCPCS: 36415; 77063; 77067; 80053; 80061; 82306; 82607; 83036; 85025